=== PATIENT | female | born 1950 | race Caucasian/White ===

== ENCOUNTER → 2020-10-13 10:16 | Outpatient (BNV) | payer MEDICARE, SELFPAY | PROVIDERS: PCP Internal Medicine; Visit Provider Internal Medicine Medical Oncology | DX: D05.11 Intraductal carcinoma in situ of right breast (principal) | CPT/HCPCS: 99213; 99214 ==

== ENCOUNTER → 2020-10-20 14:05 | Outpatient (BNVA) | payer MEDICARE, SELFPAY | PROVIDERS: PCP Internal Medicine; Referring Provider Internal Medicine; Visit Provider Surgery | DX: D05.11 Intraductal carcinoma in situ of right breast (principal); Z80.9 Family history of malignant neoplasm, unspecified | CPT/HCPCS: 99212 ==

== ENCOUNTER 2021-05-12 07:34 | Outpatient (REF) | payer MEDICARE, SELFPAY ==
[2021-05-17 15:21] LABS: N-Telopeptide 28 (see note); NTXCreaRU 135 mg/dL (20-275)
== END 2021-05-12 07:35 | disposition home or self-care (01) ==
LOC: HO.10HDLNP 07:34
PROVIDERS: Visit Provider Internal Medicine Endocrinology, Diabetes & Metabolism
DX: M81.0 Age-related osteoporosis without current pathological fracture (principal)
CPT/HCPCS: 82523; 99212

== ENCOUNTER → 2021-05-13 10:55 | Outpatient (BNVA) | payer MEDICARE, SELFPAY | PROVIDERS: PCP Internal Medicine; Referring Provider Internal Medicine; Visit Provider Surgery | DX: D05.11 Intraductal carcinoma in situ of right breast (principal); M81.0 Age-related osteoporosis without current pathological fracture; I10 Essential (primary) hypertension; Z92.3 Personal history of irradiation | CPT/HCPCS: 99212 ==

== ENCOUNTER 2021-06-07 11:53 | Outpatient (REF) | payer MEDICARE, SELFPAY ==
--- NOTE | ~2021-06-07 | MM_ITS ---
EXAMINATION: MM SCREENING DIGITAL BREAST TOMOSYNTHESIS, BILATERAL CLINICAL INFORMATION: Screening. Asymptomatic. Right lumpectomy for DCIS 2015. COMPARISON: Mammography: 06/05/2020, 06/03/2019, 05/28/2018, 05/26/2017, 02/20/2016 TECHNIQUE: Digital breast tomosynthesis is performed in both the craniocaudal and mediolateral oblique views along with computer-aided detection (CAD). Synthesized 2D images are generated from the tomosynthesis. Additional right MLO view is provided. FINDINGS: The breasts are heterogeneously dense, which may obscure small masses (ACR BI-RADS breast composition Category c). There is stable post therapy changes on the right with mild reduced breast size and stable scarring central 11:00 position. Neither breast shows developing density or interval mass or architectural abnormality. There are no abnormal calcifications. The axilla are unremarkable. MM/MM tomosynthesis screening BI IMPRESSION: No mammographic evidence of malignancy. Post therapy changes right breast. ASSESSMENT: BI-RADS 2: Benign RECOMMENDATION: Routine annual mammography screening. This patient's information was entered into a reminder system with a target due date for their next mammogram.
== END 2021-06-07 11:54 | disposition home or self-care (01) ==
LOC: HO.MAMMO 11:53
PROVIDERS: PCP Internal Medicine; Visit Provider Surgery
DX: Z12.31 Encounter for screening mammogram for malignant neoplasm of breast (principal)
CPT/HCPCS: 77063; 77067

== ENCOUNTER 2022-05-03 10:14 | Outpatient (REF) | payer MEDICARE, SELFPAY ==
--- NOTE | ~2022-05-03 | MM_ITS ---
EXAMINATION: BONE DENSITOMETRY CLINICAL INDICATION: Osteoporosis. COMPARISON: Previous BD dated 04/28/2020 and baseline BD dated 02/24/2012. TECHNIQUE: Using a Chargeback DXA System (software version: 13.1) manufactured by [employer], dual-energy x-ray absorptiometry was performed of the lumbar spine and left hip. The images are of good technical quality. Summary results are attached. FINDINGS: AP SPINE L1-L4: Current: BMD 1.162 g/cm2, Z-score 2.1, T-score -0.1, normal, 0.6% decrease from previous, 2.2% increase from baseline (<5% change is not significant). Prior: BMD 1.169 g/cm2. Baseline: BMD 1.137 g/cm2. LEFT FEMUR, NECK: Current: BMD 0.653 g/cm2, Z-score -0.7, T-score -2.8, osteoporosis. Prior: BMD 0.713 g/cm2. Baseline: BMD 0.689 g/cm2. LEFT FEMUR, TOTAL: Current: BMD 0.739 g/cm2, Z-score -0.3, T-score -2.1, osteopenia, 7.2% decrease from previous, 5.1% decrease from baseline (<5% change is not significant). Prior: BMD 0.796 g/cm2. Baseline: BMD 0.779 g/cm2. IDENTIFIED RISK FACTORS: Osteoporosis, family history (parental hip fracture), menopause. HISTORY OF FRACTURE: Mandible. MEDICATIONS: Bisphosphonates, multivitamin. MM/XR DEXA axial skeleton IMPRESSION: 1. DIAGNOSIS: Osteoporosis based on the lowest T-score value of -2.8 in the femoral neck applying World Health Organization criteria. 2. 10 10-YEAR FRACTURE RISK PREDICTION, FRAX: According to the guidelines, FRAX calculation should only be performed on patients in the osteopenia bone density category. Therefore, FRAX was not performed on this patient. 3. Treatment Recommendations: NOF guidelines recommend consideration for treatment in postmenopausal women and men age 50 and older presenting with the following: -A hip or vertebral (clinical or morphometric) fracture. -T-score less than or equal to -2.5 at the femoral neck or spine after appropriate evaluation to exclude secondary causes. -Low bone mass at the hip or spine and a 10-year fracture probability by FRAX of greater than or equal to 3% for hip fracture or greater than or equal to 20% for major osteoporotic fracture based on the [place] adapted WHO algorithm. 4. Other Recommendations: All treatment decisions require clinical judgment and consideration of individual patient factors, including patient preferences, comorbidities, previous drug use, risk factors not captured in the FRAX model (e.g. frailty, falls, vitamin D deficiency, increased bone turnover, interval significant decline in bone density) and possible under or overestimation of fracture risk by FRAX. Additional medical evaluation for secondary cause of low bone mineral density may be appropriate. FUTURE SCAN RECOMMENDATION: People with diagnosed cases of osteoporosis or at high risk for fracture should have regular bone mineral density tests. For patients eligible for Medicare, routine testing is allowed once every 2 years. The testing frequency can be increased to one year for patients who have rapidly progressing disease, those who are receiving or discontinuing medical therapy to restore bone mass, or have additional risk factors.
== END 2022-05-03 10:15 | disposition home or self-care (01) ==
LOC: HO.MAMMO 10:14
PROVIDERS: PCP Internal Medicine; Visit Provider Internal Medicine Medical Oncology
DX: Z13.820 Encounter for screening for osteoporosis (principal); M81.0 Age-related osteoporosis without current pathological fracture; Z78.0 Asymptomatic menopausal state
CPT/HCPCS: 77080

== ENCOUNTER → 2022-05-31 09:57 | Outpatient (BNVA) | payer MEDICARE, SELFPAY | PROVIDERS: PCP Internal Medicine; Visit Provider Surgery | DX: Z86.000 Personal history of in-situ neoplasm of breast (principal); Z92.3 Personal history of irradiation | CPT/HCPCS: 99212 ==

== ENCOUNTER 2022-06-06 09:16 | Outpatient (REF) | payer MEDICARE, SELFPAY ==
--- NOTE | ~2022-06-06 | FL_ITS ---
EXAMINATION: FL BARIUM SWALLOW CLINICAL INFORMATION: Dysphagia COMPARISON: None TECHNIQUE: Barium swallow examination is performed using fluoroscopic evaluation in addition to multiple fluoroscopic spot views. The patient is imaged both upright and prone and using both thick and thin sulfate along with effervescent granules. Fluoroscopy time: 2.6 minutes DAP: 4.040 Gycm2 Images: 61 FINDINGS: Following oral administration of thick barium, there is normal propagation bolus from the oral cavity through the pharynx, esophagus into stomach without any evidence of obstruction, narrowing or stricture. On oral administration of barium-coated turkey, there is normal oral mastication with normal propagation of bolus from the oral cavity through the pharynx, esophagus into stomach. On placing patient prone lying, an oral administration of thin barium, there is good distention of entire esophagus without evidence of intraluminal filling defect or extrinsic compression. There is a small sliding hiatal hernia but no reflux seen. FL/FL barium swallow IMPRESSION: Small sliding hiatal hernia without gastroesophageal reflux.
== END 2022-06-06 09:17 | disposition home or self-care (01) ==
LOC: HO.XRAY 09:16
PROVIDERS: PCP Internal Medicine; Visit Provider Otolaryngology
DX: R13.10 Dysphagia, unspecified (principal)
CPT/HCPCS: 74220

== ENCOUNTER 2022-06-09 10:01 | Outpatient (REF) | payer MEDICARE, SELFPAY ==
--- NOTE | ~2022-06-09 | MM_ITS ---
EXAMINATION: MM SCREENING DIGITAL BREAST TOMOSYNTHESIS, BILATERAL CLINICAL INFORMATION: Screening. Asymptomatic. Right lumpectomy for DCIS, 2016. COMPARISON: Mammography: 06/07/2021, 06/05/2020, 06/03/2019 TECHNIQUE: Digital breast tomosynthesis is performed in both the craniocaudal and mediolateral oblique views along with computer-aided detection (CAD). Synthesized 2D images are generated from the tomosynthesis. FINDINGS: The breasts are heterogeneously dense, which may obscure small masses (ACR BI-RADS breast composition Category c). Parenchymal pattern is similar to prior studies. The right breast has post therapy changes with mild reduced breast size and stable are. Neither breast shows interval mass or architectural abnormality, developing density, or abnormal calcifications. The axilla are unremarkable. No significant changes from prior studies. MM/MM tomosynthesis screening BI IMPRESSION: -No mammographic evidence of malignancy. -Post therapy changes right breast. ASSESSMENT: BI-RADS 2: Benign RECOMMENDATION: Routine annual mammography screening. This patient's information was entered into a reminder system with a target due date for their next mammogram.
== END 2022-06-09 10:02 | disposition home or self-care (01) ==
LOC: HO.MAMMO 10:01
PROVIDERS: PCP Internal Medicine; Visit Provider Internal Medicine
DX: Z12.31 Encounter for screening mammogram for malignant neoplasm of breast (principal)
CPT/HCPCS: 77063; 77067

== ENCOUNTER → 2022-11-29 12:51 | Outpatient (BNVA) | payer MEDICARE, SELFPAY | PROVIDERS: PCP Internal Medicine; Visit Provider Orthopaedic Surgery | DX: M65.342 Trigger finger, left ring finger (principal) | CPT/HCPCS: 20550; 99202; J1100 ==

== ENCOUNTER 2023-01-17 07:15 | Outpatient (REF) | payer MEDICARE, SELFPAY ==
[2023-01-17 12:17] LABS: Cholesterol 225 mg/dL; HDL Cholesterol 69 mg/dL; LDL Cholesterol Calculated 145 mg/dl; Triglycerides 56 mg/dL
[2023-01-17 12:44] LABS: Vitamin D 25-OH Total 35.8 ng/mL (>30)
== END 2023-01-17 07:16 | disposition home or self-care (01) ==
LOC: HO.WFDLDS 07:15
PROVIDERS: Visit Provider Internal Medicine
DX: K44.9 Diaphragmatic hernia without obstruction or gangrene (principal); M81.0 Age-related osteoporosis without current pathological fracture; I10 Essential (primary) hypertension
CPT/HCPCS: 36415; 80061; 82306

== ENCOUNTER 2023-01-26 08:20 | Outpatient (REF) | payer MEDICARE, SELFPAY | END 2023-01-26 08:21 | disposition home or self-care (01) | LOC: HO.LNP 08:20 | PROVIDERS: PCP Internal Medicine; Referring Provider Internal Medicine Medical Oncology; Visit Provider Surgery | DX: L98.8 Other specified disorders of the skin and subcutaneous tissue (principal); N63.15 Unspecified lump in the right breast, overlapping quadrants; Z79.899 Other long term (current) drug therapy; Z85.3 Personal history of malignant neoplasm of breast | CPT/HCPCS: 11104; 11400; 88305; 99212 ==

== ENCOUNTER → 2023-02-02 10:47 | Outpatient (BNVA) | payer MEDICARE, SELFPAY | PROVIDERS: PCP Internal Medicine; Visit Provider Surgery ==

== ENCOUNTER → 2023-03-14 11:23 | Outpatient (BNVA) | payer MEDICARE, SELFPAY | PROVIDERS: PCP Internal Medicine; Visit Provider Orthopaedic Surgery | DX: M65.342 Trigger finger, left ring finger (principal) | CPT/HCPCS: 20550; 99212; J1100 ==

== ENCOUNTER 2023-06-01 09:47 | Outpatient (AMB) | payer MEDICARE, SELFPAY ==
--- NOTE | 2023-06-01 09:48 | MHC.OFFVIS ---
Intake Vital Signs 06/01/23 09:56 Height 5 ft 2 in Weight 109 lb BMI 19.9 BP 140/88 H Blood Pressure Location Lt brachial Position Sitting Intake Visit Reasons: yearly month follow up breast exam Intake Note: Patient is seen in office for yearly breast exam. Patient c/o: denies any concerns or changes since last visit, has upcoming mammogram scheduled for 06/15/24 Lower In Supervisor Required: No Accompanied by: Self / Same As Patient Allergies sulfamethoxazole [From BACTRIM] Allergy (Severe, Verified 06/01/23 09:55) blisters/photosensitivity trimethoprim [From BACTRIM] Allergy (Severe, Verified 06/01/23 09:55) blisters/photosensitivity codeine [CODEINE] Allergy (Intermediate, Verified 06/01/23 09:55) Nausea and Vomiting indomethacin [From Indocin] Allergy (Verified 06/01/23 09:55) Hives Medication List - Last Reconciled 06/01/23 by Ryan Brooks MD calcium carbonate-vitamin D3 500 mg-10 mcg (400 unit) (Calcium 500 + D) tabs PO DAILY MDD 500 famotidine 40 mg PO BEDTIME lactobacillus combination no.4 (Probiotic) 3,000 mmu cells PO DAILY metoprolol succinate ER 50 mg PO DAILY HPI HPI Comments History of Present Illness Details 73-year-old female patient returning for a follow-up breast examination after right breast surgery.? She was diagnosed with ductal carcinoma in situ and underwent lumpectomy with needle localization by Dr. De La O on 03/17/2016.? She subsequently underwent radiation therapy which she completed on 05/19/2016.? She was also placed on tamoxifen which she took for 5 years and has now completed.? She feels well and denies any ongoing breast symptoms.? She did report her sister underwent a Whipple for pancreatic carcinoma.? This was felt to be an early stage and she underwent a single course of chemotherapy but did not tolerate this. She declined any further chemotherapy and is being watched now.? She had a very difficult postoperative course and was hospitalized approximately 8 weeks.? Her sister was tested for genetic mutations and was negative.? Patient wishes to hold off on any genetic testing at this time.? Patient's last mammogram dated 06/09/2022 revealed no mammographic evidence of malignancy (BI-RADS 2). She was evaluated by Dr. Quiroz and identified a small skin lesion in the right breast at approximately the 3 o'clock position. This is a small red lesion measuring approximately 3 mm in diameter. This was biopsied on 01/26/2023 pathology revealed a seborrheic keratosis. She is scheduled for a mammogram on 06/15/2023. [facility] Medical History Breast cancer Family history of cancer Hiatal hernia Hypertension Osteoporosis Osteoporosis Surgical History History of appendectomy History of lumpectomy Family History Sister Pancreatic cancer Maternal Aunt Breast cancer Pancreatic cancer Colon cancer Paternal Aunt Breast cancer Social History Household Members: Spouse Housing: House Are you a primary home care music therapist to a significant other at home: No Do you presently have visiting nurse or other home services: No Alcohol intake: current Alcohol intake frequency: holidays/special occasions only Patient Tobacco Use Status: Never used Tobacco e-Cigarette/Vaping Use: Never Used service: No 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al status: retired 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 Cognitive needs: No Hearing needs: No Vision needs: Yes Review of Systems Const All systems reviewed & are unremarkable except as noted in HPI and below Card Denies chest pain, Denies rapid heart rate, Denies irregular heart rhythm and Denies dyspnea Resp Denies cough, Denies hemoptysis and Denies dyspnea GI Denies abdominal pain, Denies bloating, Denies constipation and Denies GI cramping Denies nipple discharge Skin/Breast Denies breast swelling, Denies breast skin changes, Denies breast pain, Denies breast mass, Denies change in breast shape and Denies nipple discharge Kyle/Lymph Denies lymphadenopathy Physical Exam Vital Signs: Last Vital Signs BP 140/88 H 06/01/23 09:56 BMI result Body Mass Index 19.9 Const General: no acute distress and well developed Nutritional Appearance: well nourished Orientation/consciousness: patient oriented x3 Limitations: no limitations Chest Other: Well-healed incision in the upper outer quadrant right breast with no palpable mass. No underlying masses appreciated. No new skin change, nipple discharge or nipple retraction. No enlarged lymph nodes. Left breast: No skin change, nipple discharge, palpable mass or enlarged lymph nodes. Resp Effort & Inspection: normal respiratory effort Skin General skin exam: no rashes or lesions noted Neuro General: patient oriented x3 Extrem General: Yes no clubbing, cyanosis or edema Assessment & Plan Assessment & Plan (1) Ductal carcinoma in situ (DCIS) of right breast: Code(s): D05.11 - Intraductal carcinoma in situ of right breast Plan 73-year-old female patient with a prior history of right ductal carcinoma in situ, radiation therapy status post right breast lumpectomy returning now for an annual breast examination. Her most recent mammogram of 06/09/2022 revealed no mammographic evidence of malignancy (BI-RADS 2). Examination today revealed no suspicious findings in either breast. No new skin lesions or palpable masses are appreciated. She is scheduled for an annual mammogram on 06/15/2023 at the [facility]. She will follow-up in 1 year for routine breast examination. Coding Level of Care Code Est Pt Level 3 (96803) Diagnoses Ductal carcinoma in situ (DCIS) of right breast D05.11
[2023-06-01 09:56] VITALS: BP 140/88; BMI 19.9
== END 2023-06-01 10:22 | disposition home or self-care (01) ==
PROVIDERS: PCP Internal Medicine; Visit Provider Surgery
DX: Z85.3 Personal history of malignant neoplasm of breast (principal)
CPT/HCPCS: 99213

== ENCOUNTER → 2023-06-01 09:47 | Outpatient (BNVA) | payer MEDICARE, SELFPAY | PROVIDERS: PCP Internal Medicine; Visit Provider Surgery | DX: D05.11 Intraductal carcinoma in situ of right breast (principal) | CPT/HCPCS: 99212 ==

== ENCOUNTER 2023-06-15 09:49 | Outpatient (REF) | payer MEDICARE, SELFPAY ==
--- NOTE | ~2023-06-15 | MM_ITS ---
EXAMINATION: MM SCREENING DIGITAL BREAST TOMOSYNTHESIS, BILATERAL CLINICAL INFORMATION: Screening. Asymptomatic. Right lumpectomy for DCIS performed in 2016. COMPARISON: Mammography: This study is compared with prior exams dating back to 2019. TECHNIQUE: Digital breast tomosynthesis is performed in both the craniocaudal and mediolateral oblique views along with computer-aided detection (CAD). Synthesized 2D images are generated from the tomosynthesis. FINDINGS: The breasts are heterogeneously dense, which may obscure small masses (ACR BI-RADS breast composition Category c). There are no significant masses, abnormal calcifications, or other abnormalities. There are architectural changes in the upper quadrant of the right breast from prior breast cancer surgery. MM/MM tomosynthesis screening BI IMPRESSION: No mammographic evidence of malignancy. ASSESSMENT: BI-RADS BI-RADS 2 - Benign Findings RECOMMENDATION: Routine annual mammography screening. 1 year F/U This examination should not preclude the clinical evaluation of a suspicious palpable abnormality. This patient's information was entered into a reminder system with a target due date for their next mammogram.
== END 2023-06-15 09:50 | disposition home or self-care (01) ==
LOC: HO.MAMMO 09:49
PROVIDERS: PCP Internal Medicine; Visit Provider Internal Medicine
DX: Z12.31 Encounter for screening mammogram for malignant neoplasm of breast (principal)
CPT/HCPCS: 77063; 77067

== ENCOUNTER → 2023-06-15 10:00 | Outpatient (BNV) | payer MEDICARE, SELFPAY | PROVIDERS: PCP Internal Medicine; Visit Provider Radiology Diagnostic Radiology | DX: Z12.31 Encounter for screening mammogram for malignant neoplasm of breast (principal) | CPT/HCPCS: 77063; 77067 ==

== ENCOUNTER 2023-07-11 08:58 | Outpatient (AMB) | payer MEDICARE, SELFPAY ==
[2023-07-11 10:03] VITALS: BP 150/80; PULSE 72; TEMP 36.8; O2SAT 98; BMI 20.3
--- NOTE | 2023-07-11 10:03 | MHC.OFFWIV ---
Intake Vital Signs 07/11/23 10:03 Height 5 ft 2 in Weight 111 lb 2 oz BMI 20.3 BP 150/80 H Blood Pressure Location Rt brachial Position Sitting Pulse 72 Pulse Source Pulse Oximeter Temp 98.2 F Temp Source Temporal Artery Scan Pulse Oximetry (%) 98 Oxygen Delivery Method Room Air Intake Visit Reasons: EST/right side thoat pain going into ear Intake Note: pt is here for c/o right side throat pain going into ear Patient Tobacco Use Status: Never used Tobacco Allergies sulfamethoxazole [From BACTRIM] Allergy (Severe, Verified 07/11/23 10:35) blisters/photosensitivity trimethoprim [From BACTRIM] Allergy (Severe, Verified 07/11/23 10:35) blisters/photosensitivity codeine [CODEINE] Allergy (Intermediate, Verified 07/11/23 10:35) Nausea and Vomiting indomethacin [From Indocin] Allergy (Verified 07/11/23 10:35) Hives Medication List - Last Reconciled 07/11/23 by Beny Bender MD calcium carbonate-vitamin D3 500 mg-10 mcg (400 unit) (Calcium 500 + D) tabs PO DAILY MDD 500 famotidine 40 mg PO BEDTIME lactobacillus combination no.4 (Probiotic) 3,000 mmu cells PO DAILY metoprolol succinate ER 50 mg PO DAILY Do you need a note to return to daycare/school/sports/work: Yes HPI EST/right side thoat pain going into ear HPI Details 73-year-old female presents to the office for a sick visit. Patient is complaining of pain on the back of her throat. Symptoms present for the past week. Pain is worse on swallowing. [facility] Medical History Breast cancer Family history of cancer Hiatal hernia Hypertension Osteoporosis Osteoporosis Surgical History History of appendectomy History of lumpectomy Family History Sister Pancreatic cancer Maternal Aunt Breast cancer Pancreatic cancer Colon cancer Paternal Aunt Breast cancer Social History Household Members: Spouse Housing: House Are you a primary career counselor to a significant other at home: No Do you presently have visiting nurse or other home services: No Alcohol intake: current Alcohol intake frequency: holidays/special occasions only Patient Tobacco Use Status: Never used Tobacco e-Cigarette/Vaping Use: Never Used service: No 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al status: retired 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 Head: Yes normal to inspection Eyes General: appearance normal, both eyes and all related structures Neck Neck: Yes normal visual inspection Chest Chest palpation & inspection: normal palpation of entire chest wall Resp Effort & Inspection: normal respiratory effort Neuro General: patient oriented x3 Assessment & Plan Assessment & Plan (1) Tonsillith: Code(s): J35.8 - Other chronic diseases of tonsils and adenoids Plan: Azithromycin added to the regimen. Saltwater gargling. If symptoms do not better to follow-up here. Coding Level of Care Code Est Pt Level 3 (61654) Diagnoses Tonsillith J35.8
== END 2023-07-11 10:51 | disposition home or self-care (01) ==
PROVIDERS: PCP Internal Medicine; Visit Provider Internal Medicine
DX: J35.8 Other chronic diseases of tonsils and adenoids (principal); J02.9 Acute pharyngitis, unspecified
CPT/HCPCS: 87880; 99213

== ENCOUNTER 2023-12-27 10:52 | Outpatient (AMB) | payer MEDICARE, SELFPAY ==
--- NOTE | 2023-12-27 11:18 | A.OFFVIS_ITS ---
Intake Vital Signs 12/27/23 11:22 Height 5 ft 2 in Weight 112 lb BMI 20.5 BP 178/90 H Blood Pressure Location Lt brachial Position Sitting Pulse 80 Pulse Source Pulse Oximeter Pulse Oximetry (%) 100 Oxygen Delivery Method Room Air Intake Visit Reasons: SWV G0439 Intake Note: Pt is here today for her SWV: Last mammogram 06/15/23, bone density scan 05/03/22, colonoscopy 07/27/14 Allergies sulfamethoxazole [From BACTRIM] Allergy (Severe, Verified 12/27/23 11:29) blisters/photosensitivity trimethoprim [From BACTRIM] Allergy (Severe, Verified 12/27/23 11:29) blisters/photosensitivity codeine [CODEINE] Allergy (Intermediate, Verified 12/27/23 11:29) Nausea and Vomiting indomethacin [From Indocin] Allergy (Verified 12/27/23 11:29) Hives HPI SWV G0439 HPI Details SWV ? 73 year old lady with hypertension, osteoporosis in her left femoral neck, and ductal carcinoma in Situ of right breast diagnosed in 2022, presents today for her subsequent Annual Wellness Visit. She is up-to-date with her mammogram done 06/15/23, had a bone density scan 05/03/22, and her screening colonoscopy was done 07/27/14 by chrissy Mcclain due again this year.. She is up-to-date with her screening for lipids, had [id number] and had a normal fasting glucose screening at the same time. She is up-to-date with her flu shot, COVID vaccine and booster, Tdap, pneumonia vaccination and Shingrix vaccine but received only 1 dose. ? Medical / Social History Reviewed? Past Medical History ?Yes . ? [place] of Care / Care Team list updated ?Yes . ? Surgical/Hospitalization History ?Yes . ? Current Medications (including OTC and supplements) ?Yes . ? Family History ?Yes . ? Tobacco Control form ?Yes . ? AUDIT-C (Alcohol use) form ?Yes . ? Illicit drug use in Social History ?Yes . ? Current diagnosis of depression? ?No ? Appropriate PHQ2/PHQ9 completed ?Yes . ? 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 Fall Risk ? Fall History? Have you had any falls with injury in the past year? ?No . ? Have you had two or more falls in the past year? ?No . ? Fall Risk Assessment: ?No falls in the past year . ? HRA filled out by the patient, reviewed by Provider and scanned. ? SWV ? Balance? Romberg ?Yes . ? Tandem walk ?Yes . ? Walk and Turn ?Yes . ? Rise from sit to stand ?Yes . ?Vision? Corrective lens ?Yes ? Vision screen ? Up-to-date, sees Dr. Benton ?Hearing? Whisper test ?pass . ?Written Plan?Completed. See Patient Documents.? PENDING SALE TO [facility] Medical History (Updated 03/14/24 @ 15:36 by Glenys Looney MD) Hiatal hernia Osteoporosis Family history of cancer Hypertension Breast cancer Surgical History History of appendectomy History of lumpectomy Family History Sister Pancreatic cancer Maternal Aunt Breast cancer Pancreatic cancer Colon cancer Paternal Aunt Breast cancer Social History Household Members: Spouse Housing: House Are you a primary career development manager to a significant other at home: No Do you presently have visiting nurse or other home services: No Alcohol intake: current Alcohol intake frequency: holidays/special occasions only Patient Tobacco Use Status: Never used Tobacco e-Cigarette/Vaping Use: Never Used service: No 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al status: retired 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 Cognitive needs: No Hearing needs: No Vision needs: Yes Questionnaire Medicare Wellness Checkup [age] What gender do you identify with?: female During the past 4 weeks, how much have you been bothered by emotional problems such as feeling anxious, depressed, irritable, sad or downhearted, and blue?: slightly During the past 4 weeks, has your physical & emotional health limited your social activities with family, friends, neighbors, or groups?: not at all During the past 4 weeks, how much bodily pain have you generally had?: very mild pain During the past 4 weeks, was someone available to help you if you needed & wanted help?: yes, as much as I wanted During the past 4 weeks, what was the hardest physical activity you could do for at least 2 minutes?: heavy Can you get to places out of walking distance without help? (For eg., can you travel alone on buses, taxis or drive your car?): Yes Can you go shopping for groceries or clothes without someone's help?: Yes Can you prepare your own meals?: Yes Can you do your housework without help?: Yes Because of any health problems, do you need the help of another person with your personal care needs such as eating, bathing, dressing or getting around the house?: No Can you handle your own money without help?: Yes During the past 4 weeks, how would you rate your health in general?: excellent During the past 4 weeks how have things been going for you?: pretty well Are you having difficulties driving your car?: no Do you always fasten your seat belt when you are in a car?: yes, usually During past 4 weeks, have you been bothered by the following: never: Falling or dizzy when standing up, Sexual problems?, Trouble eating well?, Teeth or denture problems?, Problems using the telephone? and Tiredness or fatigue? Have you fallen 2 or more times in the past year?: No Are you afraid of falling?: No Are you a smoker?: no During the past 4 weeks, how many drinks of wine, beer, or other alcoholic beverages did you have?: 1 drink or less per week Do you exercise for about 20 minutes 3 or more times a week?: yes, all the time Have you been given information to help with the following?: yes: Keeping track of your medications? and no: Hazards in your house that might hurt you? How often do you have trouble taking medicines the way you have been told to take them?: I always take medicine as prescribed How confident are you that you can control & manage most of your health problems?: very confident What is your race?: White Mini Mental State Exam (MMSE) Orientation What is the (year) (season) (date) (day) (month)?: year (2023), season (winter), date (12/27/2023), day (Monday) and month (November) Where are we (state) (county) (town or city) (hospital) (floor)?: state ([place]), community health ([place]), town or city ([place]) and hospital/clinic ( [facility]) Score Score: 9 Activity of Daily Living Bathing - sponge bath, tub bath or shower: receives no assistance (gets in/out by self, if usual bathing means Dressing - getting clothes from closets & drawers, including inner/outer garme nts & fasteners.: gets clothes & gets completely dressed without help Toileting - going to the 'toilet room' for urine/bowel elimination & cleaning self/arranging clothes: goes to toilet room, cleans self, arranges clothes without help Transfer: moves in & out of bed and chair without help (may use support object) Continence: has occasional 'accidents' Feeding: feeds self without help Total Score: 0 Information obtained from: patient Using telephone: independent Traveling: independent Shopping: independent Preparing meals: independent Housework: independent Taking medicine: independent Managing money: independent PHQ-9 Over the last 2 weeks, how often have you been bothered by any of the following problems? 1. Little interest or pleasure in doing things: not at all 2. Feeling down, depressed, or hopeless: not at all 3. Trouble falling or staying asleep, or sleeping too much: not at all 4. Feeling tired or having little energy: not at all 5. Poor appetite or overeating: not at all 6. Feeling bad about yourself - or that you are a failure or have let yourself or your family down: not at all 7. Trouble concentrating on things, such as reading the newspaper or watching television: not at all 8. Moving or speaking so slowly that other people could have noticed. Or the opposite - being so fidgety or restless that you have been moving around a lot more than usual: not at all 9. Thoughts that you would be better off or of hurting yourself in some way: not at all Total score: 0 Depression Screening Interpretation: Negative Depression Screening Done: Yes 97666 - PHQ-9 Billing: Yes Source: Developed by Drs. Yuri Ruiz, Cindi Mitchell, Camacho North and colleagues, with an educational jass from [employer]. Thrive Questionnaire Date Thrive assessed: 12/27/23 I am a: Patient What is your living situation today?: I have a steady place to live Within the past 12 months, did the food you bought not last and you didn't have the money to get more?: Never true Within the past 12 months, did you worry whether your food would run out before you got money to buy more?: Never true Do you have trouble paying for medicines?: No Do you have trouble getting transportation to medical appointments?: No Do you have trouble paying your heating and electricity bill?: No Do you have trouble taking care of your child, family member or friend?: No Do you have trouble with day-to-day activities such as bathing, preparing meals, shopping, managing finances, etc.?: No Are you currently unemployed and looking for a job?: No Are you interested in more education?: No THRIVE Score: 0 JADE-7 AMB Questionnaire JADE-7 Date JADE - 7 assessed: 12/27/23 Feeling nervous, anxious, or on edge: 0 = Not at all Not being able to stop or control worryin = Not at all Worrying too much about different things: 0 = Not at all Trouble relaxin = Not at all Being so restless that it is hard to sit still: 0 = Not at all Becoming easily annoyed or irritable: 0 = Not at all Feeling afraid as if something awful might happen: 0 = Not at all Total JADE-7 score (0-4 normal; 5-9 mild; 10-14 moderate; 15-21 severe): 0 Source: Developed by Drs. Yuri Ruiz, Cindi Mitchell, Camacho [place] and colleagues, with an educational jass from [employer]. JADE-7 Assessment Billing JADE-7 Assessment Tool: JADE-7 Assessment 22877 Physical Exam Vital Signs: Last Vital Signs Pulse 80 12/27/23 11:22 BP 178/90 H 12/27/23 11:22 Pulse Ox 100 12/27/23 11:22 Oxygen Delivery Method Room Air 12/27/23 11:22 BMI result Body Mass Index 20.5 Assessment & Plan Assessment & Plan (1) Ductal carcinoma in situ (DCIS) of right breast: Code(s): D05.11 - Intraductal carcinoma in situ of right breast Plan: Followed by Oncology, up-to-date with her screening mammogram (2) Hypertension: Code(s): I10 - Essential (primary) hypertension Qualifiers: Hypertension type: primary hypertension Qualified Code(s): I10 - Essential (primary) hypertension Plan: Increase metoprolol ER dose to 100MG ONCE A day. See nurse navigator in 2 weeks to check blood pressure after dose adjustment and see me back in 3 months for follow-up (3) Osteoporosis: Code(s): M81.0 - Age-related osteoporosis without current pathological fracture Qualifiers: Osteoporosis type: age-related Presence of current pathological fracture: without current pathological fracture Qualified Code(s): M81.0 - Age- related osteoporosis without current pathological fracture Plan: Continue with calcium supplements and vitamin-D supplements, encouraged to do regular weight-bearing exercise. Repeat another bone density scan this year (4) Encounter for subsequent annual wellness visit (AWV) in Medicare patient: Code(s): Z00.00 - Encounter for general adult medical examination without abnormal findings Plan: Medical wellness checklist discussed with patient, reviewed and updated. Copy given to patient Orders: Orders XR DEXA axial skeleton 12/27/23 M81.0 - Age-related osteoporosis without current pathological fracture, Z92.29 - Personal history of other drug therapy Medications: New metoprolol succinate ER 100 mg PO DAILY 90 tabs 0RF I10 - Essential (primary) hypertension Refilled famotidine 40 mg PO BEDTIME 90 tabs 3RF Discontinued metoprolol succinate ER Discontinued Reason: Doctor's Order 50 mg PO DAILY 90 tabs 4RF I10 - Essential (primary) hypertension Quality Reporting (2019) Depression/Bipolar (159/160/161/177) PHQ-9: Total score: 0 Coding Level of Care Code Medicare Subsequent (G0439) Diagnoses Ductal carcinoma in situ (DCIS) of right breast D05.11 Primary hypertension I10 Hypertension type: primary hypertension Age-related osteoporosis without current pathological fracture M81.0 Osteoporosis type: age-related Presence of current pathological fracture: without current pathological fracture Encounter for subsequent annual wellness visit (AWV) in Medicare patient Z00.00 CPT Codes Advance Care Planning - Advance Care Planning discussion: On file, no changes ([id number]) Advance Care Planning - Time spent: 1-15 minutes, on File ([id number]) Additional Codes JADE-7 Assessment Billing - JADE-7 Assessment Tool: JADE-7 Assessment 33494 ([id number]) Advance Care Planning Advance Care Planning discussion: On file, no changes Date of discussion: 12/27/23 Who was present: Patient Forms completed: Health Care Proxy Time spent: 1-15 minutes, on File Actual minutes spent: 15
[2023-12-27 11:22] VITALS: BP 178/90; PULSE 80; O2SAT 100; BMI 20.5
== END 2023-12-27 12:20 | disposition home or self-care (01) ==
PROVIDERS: Visit Provider Internal Medicine
DX: Z00.00 Encounter for general adult medical examination without abnormal findings (principal); D05.11 Intraductal carcinoma in situ of right breast; I10 Essential (primary) hypertension; M81.0 Age-related osteoporosis without current pathological fracture
CPT/HCPCS: 1123F; G0439

== ENCOUNTER 2024-06-04 09:40 | Outpatient (AMB) | payer MEDICARE, SELFPAY ==
--- NOTE | 2024-06-04 09:41 | MHC.OFFVIS ---
Vital Signs 06/04/24 09:50 Height 5 ft 2 in Weight 111 lb 2 oz BMI 20.3 BP 140/90 H Blood Pressure Location Lt brachial Position Sitting Intake Visit Reasons: annual breast check Intake Note: Patient is seen in office for yearly breast exam. Pt c/o: no concerns or changes mm sched: 06/18/24 Fishing Worker Required: No Cruller Maker Machine: Cruller Maker Machine Present Accompanied by: Self / Same As Patient Allergies sulfamethoxazole [From BACTRIM] Allergy (Severe, Verified 06/04/24 09:43) blisters/photosensitivity trimethoprim [From BACTRIM] Allergy (Severe, Verified 06/04/24 09:43) blisters/photosensitivity codeine [CODEINE] Allergy (Intermediate, Verified 06/04/24 09:43) Nausea and Vomiting indomethacin [From Indocin] Allergy (Verified 06/04/24 09:43) Hives Medication List - Last Reconciled 06/04/24 by Ryan Brooks MD calcium carbonate-vitamin D3 500 mg-10 mcg (400 unit) (Calcium 500 + D) 500 tabs PO DAILY MDD 500 famotidine 40 mg PO BEDTIME lactobacillus combination no.4 (Probiotic) 3,000 mmu cells PO DAILY metoprolol succinate ER 100 mg PO DAILY HPI Comments Details: 74-year-old female patient returning for a follow-up breast examination after right breast surgery.? She was diagnosed with ductal carcinoma in situ and underwent lumpectomy with needle localization by Dr. De La O on 03/17/2016.? She subsequently underwent radiation therapy which she completed on 05/19/2016.? She was also placed on tamoxifen which she took for 5 years and has now completed.? She feels well and denies any ongoing breast symptoms.? She did report her sister underwent a Whipple for pancreatic carcinoma.? This was felt to be an early stage and she underwent a single course of chemotherapy but did not tolerate this. She declined any further chemotherapy and is being watched now.? She had a very difficult postoperative course and was hospitalized approximately 8 weeks.? Her sister was tested for genetic mutations and was negative.? Patient wishes to hold off on any genetic testing at this time.? Patient's last mammogram dated 06/15/2023 revealed no mammographic evidence of malignancy (BI-RADS 2). She was evaluated by Dr. Quiroz and identified a small skin lesion in the right breast at approximately the 3 o'clock position. This is a small red lesion measuring approximately 3 mm in diameter. This was biopsied on 01/26/2023 pathology revealed a seborrheic keratosis. She is scheduled for a mammogram on 06/18/2024. [facility] Medical History Hiatal hernia Osteoporosis Family history of cancer Hypertension Breast cancer Surgical History History of appendectomy History of lumpectomy Family History Sister Pancreatic cancer Maternal Aunt Breast cancer Pancreatic cancer Colon cancer Paternal Aunt Breast cancer Social History Household Members: Spouse Housing: House Are you a primary resident care assistant to a significant other at home: No Do you presently have visiting nurse or other home services: No Alcohol intake: current Alcohol intake frequency: holidays/special occasions only Patient Tobacco Use Status: Never used Tobacco e-Cigarette/Vaping Use: Never Used service: No 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al status: retired 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 Cognitive needs: No Hearing needs: No Vision needs: Yes Review of Systems Const All systems reviewed & are unremarkable except as noted in HPI and below Card Denies chest pain, Denies rapid heart rate, Denies irregular heart rhythm and Denies dyspnea Resp Denies cough, Denies hemoptysis and Denies dyspnea GI Denies abdominal pain, Denies bloating, Denies constipation and Denies GI cramping Denies nipple discharge Skin/Breast Denies breast swelling, Denies breast skin changes, Denies breast pain, Denies breast mass, Denies change in breast shape and Denies nipple discharge Kyle/Lymph Denies lymphadenopathy Physical Exam Vital Signs: Last Vital Signs BP 140/90 H 06/04/24 09:50 BMI result Body Mass Index 20.3 Const General: no acute distress and well developed Nutritional Appearance: well nourished Orientation/consciousness: patient oriented x3 Chest Other: Well-healed incision in the upper outer quadrant right breast with no palpable mass. No underlying masses appreciated. No new skin change, nipple discharge or nipple retraction. No enlarged lymph nodes. Left breast: No skin change, nipple discharge, palpable mass or enlarged lymph nodes. Resp Effort & Inspection: normal respiratory effort Skin General skin exam: no rashes or lesions noted Neuro Other: Mobility Assessment: 1. 3 meter assessment time (seconds) 5 2. Gait observations: Normal balance and gait General: patient oriented x3 Extrem General: Yes no clubbing, cyanosis or edema Assessment & Plan Assessment & Plan (1) Ductal carcinoma in situ (DCIS) of right breast: Code(s): D05.11 - Intraductal carcinoma in situ of right breast Category: Medical Plan 74-year-old female patient with a prior history of right ductal carcinoma in situ, radiation therapy status post right breast lumpectomy returning now for an annual breast examination. Her most recent mammogram of 06/15/2023 revealed no mammographic evidence of malignancy (BI-RADS 2). Examination today revealed no suspicious findings in either breast. No new skin lesions or palpable masses are appreciated. She is scheduled for an annual mammogram on 06/18/2024 at the [facility]. She will follow-up in 1 year for routine breast examination. Coding Level of Care Code Est Pt Level 3 (75328) Diagnoses Ductal carcinoma in situ (DCIS) of right breast D05.11
[2024-06-04 09:50] VITALS: BP 140/90; BMI 20.3
== END 2024-06-04 10:15 | disposition home or self-care (01) ==
PROVIDERS: PCP Internal Medicine; Visit Provider Surgery
DX: D05.11 Intraductal carcinoma in situ of right breast (principal)
CPT/HCPCS: 99213

== ENCOUNTER → 2024-06-04 09:40 | Outpatient (BNVA) | payer MEDICARE, SELFPAY | PROVIDERS: PCP Internal Medicine; Visit Provider Surgery | DX: D05.11 Intraductal carcinoma in situ of right breast (principal); Z92.3 Personal history of irradiation | CPT/HCPCS: 99212 ==

== ENCOUNTER 2024-06-13 13:32 | Outpatient (REF) | payer MEDICARE, SELFPAY ==
--- NOTE | ~2024-06-13 | US_ITS ---
EXAMINATION: US LEFT SUPRACLAVICULAR SOFT TISSUES CLINICAL INFORMATION: Focal swelling and palpable lump in the left supraclavicular region. COMPARISON: None available. TECHNIQUE: Linear transducer coleman-scale and color Doppler examination with attention to the region of the left supraclavicular region. FINDINGS: The cutaneous, subcutaneous mass, muscular and fascial planes are unremarkable. No mass or fluid collection is seen. No lymphadenopathy. No foreign body is seen. US/US soft tiss head and/or neck IMPRESSION: Unremarkable examination. Electronically signed by: Ryan Seay MD 06/23/2024 04:47 PM EDT
== END 2024-06-13 13:33 | disposition home or self-care (01) ==
LOC: HO.US 13:32
PROVIDERS: PCP Internal Medicine; Visit Provider Surgery
DX: R22.1 Localized swelling, mass and lump, neck (principal)
CPT/HCPCS: 76536

== ENCOUNTER 2024-06-18 09:56 | Outpatient (REF) | payer MEDICARE, SELFPAY ==
--- NOTE | ~2024-06-18 | MM_ITS ---
EXAMINATION: MM SCREENING DIGITAL BREAST TOMOSYNTHESIS, BILATERAL CLINICAL INFORMATION: Screening. Asymptomatic. Right lumpectomy upper outer quadrant posterior one third for DCIS in 2016. COMPARISON: Mammography: 06/15/2023, 06/09/2022, 06/07/2021, 06/05/2020, and dating back to 2017. TECHNIQUE: Digital breast tomosynthesis is performed in both the craniocaudal and mediolateral oblique views along with computer-aided detection (CAD). Synthesized 2D images are generated from the tomosynthesis. As per technologist note, patient sensitive to compression. FINDINGS: The breasts are heterogeneously dense, which may obscure small masses (ACR BI-RADS breast composition Category c). Postlumpectomy changes are present in the upper outer right breast posterior one third, without significant change. There are a few scattered benign type calcifications in both breasts. No suspicious grouped calcifications. Early vascular calcifications are also noted. No dominant masses, or new areas of architectural distortion in either breast. No suspicious skin or axillary abnormalities. The overall parenchymal pattern is unchanged from prior recent exams. MM/MM tomosynthesis screening BI IMPRESSION: No mammographic evidence of malignancy. Stable benign findings. ASSESSMENT: BI-RADS BI-RADS 2 - Benign Findings RECOMMENDATION: Routine annual mammography screening. 1 year F/U This examination should not preclude the clinical evaluation of a suspicious palpable abnormality. This patient's information was entered into a reminder system with a target due date for their next mammogram. Electronically signed by: Suhas Nieves MD 06/27/2024 01:35 PM EDT
--- NOTE | ~2024-06-18 | MM_ITS ---
EXAMINATION: BONE DENSITOMETRY CLINICAL INDICATION: Age-related osteoporosis without current pathological fracture. COMPARISON: Previous BD dated 05/03/2022 and baseline BD dated 02/24/2012. TECHNIQUE: Using a [employer] DXA System (software version: 13.1) manufactured by [employer], dual-energy x-ray absorptiometry was performed of the lumbar spine and left hip. The images are of good technical quality. Summary results are attached. FINDINGS: LEFT FEMUR, NECK: Current: BMD 0.690 g/cm2, Z-score -0.4, T-score -2.5, osteoporosis. Prior: BMD 0.653 g/cm2. Baseline: BMD 0.689 g/cm2. LEFT FEMUR, TOTAL: Current: BMD 0.751 g/cm2, Z-score -0.1, T-score -2.0, osteopenia, 1.6% increase from previous, 3.6% decrease from baseline (<5% change is not significant). Prior: BMD 0.739 g/cm2. Baseline: BMD 0.779 g/cm2. AP SPINE L1-L4: Current: BMD 1.111 g/cm2, Z-score 1.6, T-score -0.6, normal, 4.4% decrease from previous, 2.3% decrease from baseline (<5% change is not significant). Prior: BMD 1.162 g/cm2. Baseline: BMD 1.137 g/cm2. IDENTIFIED RISK FACTORS: Osteoporosis, parental hip fracture, history of fracture (adult), menopause. HISTORY OF FRACTURE: Other. MEDICATIONS: Calcium or multivitamin. MM/XR DEXA axial skeleton IMPRESSION: 1. DIAGNOSIS: Osteoporosis based on the lowest T-score value of -2.5 in the femoral neck applying World Health Organization criteria. 2. 10-YEAR FRACTURE RISK PREDICTION, FRAX: According to the guidelines, FRAX calculation should only be performed on patients in the osteopenia bone density category. Therefore, FRAX was not performed on this patient. 3. Treatment Recommendations: NOF guidelines recommend consideration for treatment in postmenopausal women and men age 50 and older presenting with the following: -A hip or vertebral (clinical or morphometric) fracture. -T-score less than or equal to -2.5 at the femoral neck or spine after appropriate evaluation to exclude secondary causes. -Low bone mass at the hip or spine and a 10-year fracture probability by FRAX of greater than or equal to 3% for hip fracture or greater than or equal to 20% for major osteoporotic fracture based on the [place] adapted WHO algorithm. 4. Other Recommendations: All treatment decisions require clinical judgment and consideration of individual patient factors, including patient preferences, comorbidities, previous drug use, risk factors not captured in the FRAX model (e.g. frailty, falls, vitamin D deficiency, increased bone turnover, interval significant decline in bone density) and possible under or overestimation of fracture risk by FRAX. Additional medical evaluation for secondary cause of low bone mineral density may be appropriate. FUTURE SCAN RECOMMENDATION: People with diagnosed cases of osteoporosis or at high risk for fracture should have regular bone mineral density tests. For patients eligible for Medicare, routine testing is allowed once every 2 years. The testing frequency can be increased to one year for patients who have rapidly progressing disease, those who are receiving or discontinuing medical therapy to restore bone mass, or have additional risk factors. Electronically signed by: Alphonse Brown MD 06/26/2024 08:51 AM EDT
== END 2024-06-18 09:57 | disposition home or self-care (01) ==
LOC: HO.MAMMO 09:56
PROVIDERS: PCP Internal Medicine; Visit Provider Internal Medicine
DX: Z12.31 Encounter for screening mammogram for malignant neoplasm of breast (principal); M81.0 Age-related osteoporosis without current pathological fracture; Z92.29 Personal history of other drug therapy
CPT/HCPCS: 77063; 77067; 77080

== ENCOUNTER → 2024-06-18 10:15 | Outpatient (BNV) | payer MEDICARE, SELFPAY | PROVIDERS: PCP Internal Medicine; Visit Provider Radiology Diagnostic Radiology | DX: Z12.31 Encounter for screening mammogram for malignant neoplasm of breast (principal) | CPT/HCPCS: 77063; 77067 ==

== ENCOUNTER 2024-09-03 08:52 | Day surgery (SDC) | payer MEDICARE, SELFPAY ==
[2024-08-30 11:43] VITALS: BMI 19.8
--- NOTE | 2024-09-02 11:44 | HO.ANESPROP2 ---
HPI - Anesthesia Eval Consult details Narrative: 74yo F for Upper Endoscopy and Colonoscopy PMFSH Active Problems Active Problems: All Active Problems Mass in neck (Acute) Encounter for subsequent annual wellness visit (AWV) in Medicare patient (Acute) Seborrheic keratosis (Acute) Trigger finger, left ring finger (Acute) Ductal carcinoma in situ (DCIS) of right breast (Acute) Hiatal hernia (Acute) Osteoporosis (Acute) Hypertension (Acute) Past Medical History Medical History (Updated 08/30/24 @ 11:29 by Kirsten Flores RN) Hx of radiation therapy GERD (gastroesophageal reflux disease) DCIS (ductal carcinoma in situ) of breast Hiatal hernia Osteoporosis Family history of cancer Hypertension Breast cancer Family History Family History Sister Pancreatic cancer Maternal Aunt Breast cancer Pancreatic cancer Colon cancer Paternal Aunt Breast cancer Surgical History Surgical History (Updated 08/30/24 @ 11:29 by Kirsten Flores RN) Hx of hemorrhoidectomy H/O colonoscopy History of appendectomy History of lumpectomy Social History Social History Household Members: Spouse Housing: House Are you a primary rental boats caretaker to a significant other at home: No Do you presently have visiting nurse or other home services: No Alcohol intake: current Alcohol intake frequency: holidays/special occasions only Patient Tobacco Use Status: Never used Tobacco e-Cigarette/Vaping Use: Never Used Use of substances other than those prescribed or required for medical reasons: No Are you DNR?: No Advance Directives: No Advance Directives Information Provided: Yes service: No 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al status: retired 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 Cognitive needs: No Hearing needs: No Vision needs: Yes Meds Allergies Allergy/AdvReac Type Severity Reaction Status Date / Time sulfamethoxazole Allergy Severe blisters/ph Verified 09/03/24 09:22 [From BACTRIM] otosensitiv ity trimethoprim [From BACTRIM] Allergy Severe blisters/ph Verified 09/03/24 09:22 otosensitiv ity codeine [CODEINE] Allergy Intermediate Nausea and Verified 09/03/24 09:22 Vomiting indomethacin [From Indocin] Allergy Hives Verified 09/03/24 09:22 Home Medications ?Medication ?Instructions ?Recorded ?Confirmed ?Last Taken ?Type lactobacillus combination no.4 3 3,000 mmu cells PO DAILY 10/13/20 09/03/24 Unknown History billion cell capsule (Probiotic) calcium carbonate 500 mg-vitamin 500 tab PO DAILY breast cancer 01/13/23 09/03/24 Unknown History D3 10 mcg (400 unit) chewable tablet (Calcium 500 + D) Exam Height,Weight and Vital Signs: Height 5 ft 3 in Weight 50.802 kg Assessment and Plan Assessment Anesthesia Assessment: Chart Reviewed
[2024-09-03 09:24] VITALS: BMI 20.4
[2024-09-03 09:39] VITALS: PULSE 70; RESP 16; TEMP 37.1; O2SAT 100
[2024-09-03 09:53] VITALS: BP 179/92
[2024-09-03] MEDS: Lactated Ringers 1,000 ML 100 ML IVCONT (09:53)
--- NOTE | 2024-09-03 10:09 | MHC.SHP ---
Pre-Procedural Eval Section A - 24 Hr Update-Section A only Date of Service: 09/03/24 Section B - Complete if H&P > 30 days Chief Complaint: Encounter for screening for malignant neoplasm of Details of Present Illness: see H&P no changes Relevant Family History (Specify if Yes): No Relevant Social History: None Present Medications: see Short Stay Collaborative assessment Medical History: No relevant PMH History of Previous Operations: No relevant previous surgery Allergies: Allergies Allergy/AdvReac Type Severity Reaction Status Date / Time sulfamethoxazole Allergy Severe blisters/ph Verified 09/03/24 09:22 [From BACTRIM] otosensitiv ity trimethoprim [From BACTRIM] Allergy Severe blisters/ph Verified 09/03/24 09:22 otosensitiv ity codeine [CODEINE] Allergy Intermediate Nausea and Verified 09/03/24 09:22 Vomiting indomethacin [From Indocin] Allergy Hives Verified 09/03/24 09:22 Review of Systems Sugical H&P ROS: Negative: Constitution, Cardiovascular, Respiratory, Neurological, Psychiatric, Hem-Onc, Allergic/Immunologic, Gastrointestinal, Genitourinary, Musculoskeletal, Integumentary, Endocrine and Eyes/Ears/Nose/Throat Exam Surgical H&P Exam: Normal: HEENT, Normal: Heart, Normal: Lungs, Normal: Extremities, Normal: Abdomen, Normal: Skin and Normal: Neurological Plan Diagnosis/Plan: Unchanged I have reviewed the history and physical and performed a pertinent physical examination on my patient. No changes have occurred unless specified. Time Spent With Patient Time: Total time managing care of this patient today ____ minutes.
[2024-09-03 11:15] VITALS: BP 106/61; PULSE 66; RESP 15; TEMP 36.1; O2SAT 100
[2024-09-03 11:28] VITALS: BP 136/77; PULSE 67; RESP 16; TEMP 36.2; O2SAT 100
--- NOTE | 2024-09-03 11:49 | OP_ITS ---
DATE OF SERVICE: 09/03/2024 SURGEON: Bogdan Ruby MD INDICATIONS: Colon cancer screening and gastroesophageal reflux disease. PREOPERATIVE DIAGNOSIS: POSTOPERATIVE DIAGNOSIS: PROCEDURE PERFORMED: Upper endoscopy with biopsy, colonoscopy to the terminal ileum. ESTIMATED BLOOD LOSS: COMPLICATIONS: ANESTHESIA: Monitored anesthesia care. ASSISTANTS: SPECIMENS: DESCRIPTION OF PROCEDURE: A history and physical were performed. The risks and benefits of the procedure were explained to the patient. Informed consent was obtained. The patient was placed in the left lateral decubitus position. The Olympus video gastroscope was introduced into the esophagus, stomach, and duodenum. Examination was performed. The scope was removed. She was repositioned for colonoscopy. A digital rectal exam was performed and was found to be normal. The Olympus pediatric video colonoscope was introduced into the rectum and advanced to the cecum. The cecum was identified by transillumination, palpation, and identification of ileocecal valve. Examination was performed. The scope was removed. She tolerated both procedures well, returned to recovery area in stable condition. FINDINGS: Upper endoscopy: 1. Esophagus: The esophagus showed an irregular EG junction. This was biopsied. 2. Stomach: The stomach showed no evidence of masses or ulcers. Antral biopsies were obtained to rule out H pylori. 3. Duodenum: The bulb and 2nd portion were normal. Colonoscopy: The terminal ileum was examined and appeared normal. The visualized colonic mucosa was within normal limits without evidence of masses or ulcers. There was mild sigmoid diverticulosis. There was liquid stool present which limited the sensitivity examination for detection of small polyps. No polyps were identified. Retroflexed examination showed some small internal hemorrhoids. IMPRESSION: 1. Gastroesophageal reflux disease. 2. Normal colonoscopy. RECOMMENDATION: 1. Follow up the biopsy results. 2. Repeat colonoscopy is recommended in 10 years for average-risk individuals. MD CARL Brooke/MARQUITAL / [id number]
== END 2024-09-03 11:51 | disposition home or self-care (01) ==
PROVIDERS: PCP Internal Medicine; Visit Provider Internal Medicine Gastroenterology
PROC: (CPT 43239; principal; 2024-09-03 10:50)
DX: K22.89 Other specified disease of esophagus (principal); K21.9 Gastro-esophageal reflux disease without esophagitis; Z12.11 Encounter for screening for malignant neoplasm of colon; K57.30 Diverticulosis of large intestine without perforation or abscess without bleeding; K64.8 Other hemorrhoids; R93.3 Abnormal findings on diagnostic imaging of other parts of digestive tract; I10 Essential (primary) hypertension; D05.11 Intraductal carcinoma in situ of right breast; Z92.3 Personal history of irradiation; Z79.899 Other long term (current) drug therapy
CPT/HCPCS: 43239; G0121; 88305; 88313; 88342; J2003; J2704

== ENCOUNTER 2025-01-02 09:04 | Outpatient (AMB) | payer MEDICARE, SELFPAY ==
--- NOTE | 2025-01-02 09:14 | MHC.PC.OV ---
Vital Signs 01/02/25 09:18 Height 5 ft 1 in Weight 112 lb BMI 21.2 BP 184/92 H Blood Pressure Location Lt brachial Position Sitting Respiration 16 Pulse 75 Pulse Source Pulse Oximeter Temp 98.1 F Temp Source Oral Pulse Oximetry (%) 99 Oxygen Delivery Method Room Air Intake Visit Reasons: F/U HTN Intake Note: Pt is here today for her HTN Allergies sulfamethoxazole [From BACTRIM] Allergy (Severe, Verified 01/02/25 09:35) blisters/photosensitivity trimethoprim [From BACTRIM] Allergy (Severe, Verified 01/02/25 09:35) blisters/photosensitivity codeine [CODEINE] Allergy (Intermediate, Verified 01/02/25 09:35) Nausea and Vomiting indomethacin [From Indocin] Allergy (Verified 01/02/25 09:35) Hives Medication List - Last Reconciled 01/02/25 by Glenys Looney MD calcium carbonate-vitamin D3 500 mg-10 mcg (400 unit) (Calcium 500 + D) 500 tabs PO DAILY MDD 500 famotidine 40 mg PO BEDTIME lactobacillus combination no.4 (Probiotic) 3,000 mmu cells PO DAILY metoprolol succinate ER 100 mg PO DAILY Tobacco use date assessed: 01/02/25 Fall risk assessment: No Falls in past year Last assessed Fall Risk: 01/02/25 Dental Screening Dental Screen Date: 01/02/25 Did you have a dental visit in the last 12 months?: Yes Did you have a dental problem in the last 6 months where you did not have access to dental care?: Yes Was dental information given to patient?: Patient has dentist HPI F/U HTN HPI Details 74-year-old lady with hypertension, as well as white coat hypertension, here today for follow-up. Patient is currently on metoprolol succinate 100 mg daily. Patient has been checking her blood pressure at home and it usually runs around 130/80 but occasionally when she would up to 180 over 100 especially when she is under a lot of stress or when she goes to the doctor's office. [facility] Medical History (Updated 01/02/25 @ 09:51 by Glenys Looney MD) Dyslipidemia Hx of radiation therapy GERD (gastroesophageal reflux disease) DCIS (ductal carcinoma in situ) of breast Hiatal hernia Osteoporosis Family history of cancer Hypertension Breast cancer Surgical History Hx of hemorrhoidectomy H/O colonoscopy History of appendectomy History of lumpectomy Family History Sister Pancreatic cancer Maternal Aunt Breast cancer Pancreatic cancer Colon cancer Paternal Aunt Breast cancer Social History Household Members: Spouse Housing: House Are you a primary point of care specialist to a significant other at home: No Do you presently have visiting nurse or other home services: No Alcohol intake: current Alcohol intake frequency: holidays/special occasions only Patient Tobacco Use Status: Never used Tobacco e-Cigarette/Vaping Use: Never Used service: No 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al status: retired 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 1. Little interest or pleasure in doing things: not at all 2. Feeling down, depressed, or hopeless: not at all 3. Trouble falling or staying asleep, or sleeping too much: not at all 4. Feeling tired or having little energy: not at all 5. Poor appetite or overeating: not at all 6. Feeling bad about yourself - or that you are a failure or have let yourself or your family down: not at all 7. Trouble concentrating on things, such as reading the newspaper or watching television: not at all 8. Moving or speaking so slowly that other people could have noticed. Or the opposite - being so fidgety or restless that you have been moving around a lot more than usual: not at all 9. Thoughts that you would be better off or of hurting yourself in some way: not at all Total score: 0 Depression Screening Interpretation: Negative Depression Screening Done: Yes 48442 - PHQ-9 Billing: Yes Source: Developed by Drs. Yuri Ruiz, Cindi Mitchell, Camacho North and colleagues, with an educational jass from [employer]. Thrive Questionnaire Date Thrive assessed: 12/27/24 I am a: Patient What is your living situation today?: I have a steady place to live Within the past 12 months, did the food you bought not last and you didn't have the money to get more?: Never true Within the past 12 months, did you worry whether your food would run out before you got money to buy more?: Never true Do you have trouble paying for medicines?: No Do you have trouble getting transportation to medical appointments?: No Do you have trouble paying your heating and electricity bill?: No Do you have trouble taking care of your child, family member or friend?: No Do you have trouble with day-to-day activities such as bathing, preparing meals, shopping, managing finances, etc.?: No Are you currently unemployed and looking for a job?: No Are you interested in more education?: No Please select the resources that you would like help with: None Currently or been in a relationship where the following occur: No concerns reported THRIVE Score: 0 AUDIT C Alcohol Use Questionnaire (AUDIT-C) 1. How often do you have a drink containing alcohol?: Monthly or less 2. How many drinks containing alcohol do you have on a typical day when you are drinking?: 1 or 2 3. How often do you have six or more drinks on one occasion?: Never Total Score: 1 JADE-7 AMB Questionnaire JADE-7 Date JADE - 7 assessed: 01/02/25 Feeling nervous, anxious, or on edge: 0 = Not at all Not being able to stop or control worryin = Not at all Worrying too much about different things: 0 = Not at all Trouble relaxin = Not at all Being so restless that it is hard to sit still: 0 = Not at all Becoming easily annoyed or irritable: 0 = Not at all Feeling afraid as if something awful might happen: 0 = Not at all Total JADE-7 score (0-4 normal; 5-9 mild; 10-14 moderate; 15-21 severe): 0 Source: Developed by Drs. Yuri Ruiz, Cindi Mitchell, Camacho [place] and colleagues, with an educational jass from [employer]. JADE-7 Assessment Billing JADE-7 Assessment Tool: JADE-7 Assessment 74160 Review of Systems Const Reports no additional complaints Eyes Reports no additional complaints ENT Reports no additional complaints Card Denies chest pain, Denies rapid heart rate, Denies irregular heart rhythm and Denies dyspnea Resp Denies cough, Denies hemoptysis and Denies dyspnea GI Denies abdominal pain, Denies bloating, Denies constipation, Denies GI cramping, Denies early satiety, Denies dyspepsia and Denies heartburn Reports no additional complaints Musc Reports no additional complaints Skin/Breast Denies breast swelling, Denies breast skin changes, Denies breast pain and Denies breast mass Neuro Reports no additional complaints Endo Reports no additional complaints Kyle/Lymph Denies lymphadenopathy Physical exam (Primary Care) Vital Signs: Last Vital Signs Temp 98.1 F 01/02/25 09:18 Pulse 75 01/02/25 09:18 Resp 16 01/02/25 09:18 BP 184/92 H 01/02/25 09:18 Pulse Ox 99 01/02/25 09:18 Oxygen Delivery Method Room Air 01/02/25 09:18 BMI result Body Mass Index 21.2 Tobacco/Smoking Status: Tobacco use Status Tobacco use date assessed 01/02/25 01/02/25 09:21 Patient Tobacco Use Status Never used Tobacco 01/02/25 09:21 e-Cigarette/Vaping Use Never Used 01/02/25 09:21 PHQ-9: PHQ-9 Score PHQ-9: Total score 0 01/05/25 00:28 Depression Screening Interpretation: Negative Thrive Assessment: Date of Thrive Assessment Date Thrive assessed 12/27/24 01/02/25 09:21 Currently or been in a relationship where the following occur: No concerns reported Const General: no acute distress and alert Nutritional Appearance: average body habitus Orientation/consciousness: patient oriented x3 HENMT Mouth: Normal oral and palatal mucosa present and moist mucous membranes Neck Neck: Yes full ROM, Yes no lymphadenopathy and Yes supple Resp Auscultation: clear to auscultation bilaterally Cardio Other: S1-S2 present regular rate and rhythm GI Other: Normal bowel sounds, soft, nontender with no mass palpated Neuro General: patient oriented x3, gait normal, moves all extremities, Normal light touch and pain sensation and no focal motor deficits Extrem General: Yes full ROM, Yes no joint enlargement, Yes no clubbing, cyanosis or edema and Yes normal gait Coding Level of Care Code Est Pt Level 4 (04475) Complex EM visit Add On G2211 Diagnoses Primary hypertension I10 Hypertension type: primary hypertension Age-related osteoporosis without current pathological fracture M81.0 Osteoporosis type: age-related Presence of current pathological fracture: without current pathological fracture Dyslipidemia E78.5 Additional Codes JADE-7 Assessment Billing - JADE-7 Assessment Tool: JADE-7 Assessment 65993 ([id number]) PHQ-9 - 41360 - PHQ-9 Billing: Yes ([id number]) Assessment & Plan Assessment & Plan (1) Hypertension: Code(s): I10 - Essential (primary) hypertension Category: Medical Qualifiers: Hypertension type: primary hypertension Qualified Code(s): I10 - Essential (primary) hypertension Plan: Continue metoprolol succinate at same dose, added losartan 50 mg daily. Reinforced importancOf following a low salt diet, continue monitoring blood pressure at home, and continue with regular exercise.. Reminded to get her fasting comprehensive metabolic panel done, ordered by Dr. Quiroz (2) Osteoporosis: Code(s): M81.0 - Age-related osteoporosis without current pathological fracture Category: Medical Qualifiers: Osteoporosis type: age-related Presence of current pathological fracture: without current pathological fracture Qualified Code(s): M81.0 - Age-related osteoporosis without current pathological fracture Plan: Will check vitamin-D level. Continue with doing regular weight-bearing exercise and continue with taking calcium and vitamin-D supplements. Does not want to start any treatment at present time, will repeat another bone density scan next year. (3) Dyslipidemia: Code(s): E78.5 - Hyperlipidemia, unspecified Category: Medical Plan: Fasting lipid panel ordered, reinforced importance of following a low-cholesterol diet and getting regular exercise. Orders: Orders Vitamin D 25-OH Total 2 Weeks E78.5 - Hyperlipidemia, unspecified, I10 - Essential (primary) hypertension, M81.0 - Age-related osteoporosis without current pathological fracture Lipid Panel 2 Weeks E78.5 - Hyperlipidemia, unspecified, I10 - Essential (primary) hypertension, M81.0 - Age-related osteoporosis without current pathological fracture Medications: New losartan 50 mg PO DAILY 30 tabs 2RF Refilled famotidine 40 mg PO BEDTIME 90 tabs 3RF metoprolol succinate ER 100 mg PO DAILY 90 tabs 1RF I10 - Essential (primary) hypertension
[2025-01-02 09:18] VITALS: BP 184/92; PULSE 75; RESP 16; TEMP 36.7; O2SAT 99; BMI 21.2
--- OUTSIDE RECORDS SUMMARY | 2025-01-02 10:02 | XMS_ITS ---
Author Organization [facility] Address [address] [place] [address] Care Team Providers Care Shipping Helper Name Role Phone Aure WONG, Glenys Primary Care Provider Bogdan Mcfadden Jr Unavailable Allergies Allergen (clinical drug ingredient) Drug/Non Drug Allergy documented on EMR Reaction Allergy Type Onset Date Status indomethacin Indocin Unknown Drug Allergy Acti ve Codeine Phosphate Unknown Drug Allergy Active Bactrim Unknown Drug Allergy Active REASON FOR VISIT Patient presents today for a recall colonoscopy, discuss EGD Barium swallow scanned ) Medications Medication SIG (Take, Route, Frequency, Duration) Notes Start Date End Date Status Vitafusion 0.18-32.5 MG as directed Orally Active Probiotic Active MiraLax (colon prep) 17 GM/SCOOP mixed with Gatorade or Crystal Light Orally begin at 5:00 p.m. the day before the procedure for 1 day 07/22/2024 Active Famotidine 40 MG 1 tablet Orally Once a day for 30 day(s) Active Metoprolol Succinate ER 100 MG 1 tablet Orally Once a day for 30 day(s) Active Problems Problem Type SNOMED Code ICD Code Onset Dates Problem Status W/U Status Risk Notes Problem 163230323 Abnormal finding s on diagnostic imaging of other parts of digestive tract (R93.3) Active confirmed Problem [id number] Colon cancer screening (Z12.11) Active confirmed Problem [id number] Gastroesophageal reflux disease without esophagitis (K21.9) Active confirmed Vital Signs Temperature 97.1 degrees Fahrenheit 07/22/20 24 Blood pressure systolic 000 mm Hg 07/22/20 24 Blood pressure diastolic 00 mm Hg 024 Height 63.25 in 07/22/2024 Weight 112 lb 6 oz lbs 07/22/2024 BMI 19.75 kg/m2 07/22/2024 Encounters Encounter Location Date Provider Diagnosis [facility] [address] [place] [address] 07/22/2024 Bogdan Ruby Jr Abnormal findings on diagnostic imaging of other parts of digestive tract R93.3 ; Colon cancer screening Z12.11 and Gastroesophageal reflux disease without esophagitis K21.9 Assessments Encounter Date Diagnosis (ICD Code) Assessment Notes Treatment Notes Treatment Clinical Notes Section Notes 07/22/2024 Abnormal findings on diagnostic imaging of other parts of digestive tract (ICD-10 - R93.3) We discussed gastroesophageal reflux disease today. We discussed diet, lifestyle modifications, and weight management. We recommended she continue famotidine. Because of her x-ray and her symptoms we recommended she undergo upper endoscopy. We discussed risks and benefits of the procedure today. She understands these and agrees to proceed. She is agreeable to having colonoscopy at the same time. 07/22/2024 Colon cancer screening (ICD-10 - Z12.11) We discussed gastroesophageal reflux disease today. We discussed diet, lifestyle modifications, and weight management. We recommended she continue famotidine. Because of her x-ray and her symptoms we recommended she undergo upper endoscopy. We discussed risks and benefits of the procedure today. She understands these and agrees to proceed. She is agreeable to having colonoscopy at the same time. 07/22/2024 Gastroesophageal reflux disease without esophagitis (ICD-10 - K21.9) We discussed gastroesophageal reflux disease today. We discussed diet, lifestyle modifications, and weight management. We recommended she continue famotidine. Because of her x-ray and her symptoms we recommended she undergo upper endoscopy. We discussed risks and benefits of the procedure today. She understands these and agrees to proceed. She is agreeable to having colonoscopy at the same time. Plan Of Treatment Medication Medication Name Sig Start Date Stop Date Notes MiraLax (colon prep) 17 GM/SCOOP mixed with Gatorade or Crystal Light Orally begin at 5:00 p.m. the day before the procedure for 1 day 07/22/2024 Future Test Test Name Order Date UPPER GI ENDOSCOPY 07/22/2024 COLONOSCOPY 07/22/2024 Next Appt Details Follow Up: prn, Reason: Progress Notes * LI, CARLO IDOB: 2 (74 yo F)Acc No.[id number]:07/22/2024 Progress Notes Patient:?CARLO LI I Provider:?Bogdan Ruby MD :1950???Age:74 Y???Sex:Female D ate:07/22/2024 Address:[address] [place] [address] Pcp:Glenys Looney MD Subjective: * Chief Complaints: * ???1. Patient presents today for a recall colonoscopy, discuss EGD Barium swallow scanned ). * HPI: ???New symptom(s):? Carlo is a pleasant 74-year-old woman seen today in consultation. She has a history of gastroesophageal reflux disease with substernal burning precipitated by typical foods including spicy foods and fatty foods. She's been using famotidine over the past 2 years 40 mg once daily which controls her symptoms well. She has had some dysphagia but no hematemesis or melena. Evaluation with a barium swallow on 06/06/22 showed a small sliding hiatal hernia without gastroesophageal reflux. We reviewed this today. ?She also has a history of colon polyps and underwent colonoscopy in 2014 which was negative for polyps. She is due for followup. She has no complaints of rectal bleeding. She has no change in her bowel habits. * ROS:?General/Constitutional:?Change in appetite?denies.?Fatigue?denies.?ENT:?Patient denies?difficulty swallowing.?Respiratory:?Patient denies?shortness of breath.?Cardiovascular:?Patient denies?chest pain.?Gastrointestinal:?Comments?See HPI for details.?Genitourinary:?Difficulty urinating?denies.?Incontinence?denies.?Musculoskeletal:?Patient denies?muscle aches.?Skin:?Patient denies?pruritis.?Neurologic:?Patient denies?low back pain.?Psychiatric:?Patient denies?mental or physical abuse.? * Medical History:?Colonoscopy 2014, negative, ten-year followup, 2016 DCIS right breast, lumpectomy , Hiatal hernia, Osteoporosis, Hypertension, Gastroesophageal reflux disease. * Surgical History:?appendecto my , hemorrhoid banding , lumpectomy, radiation . * Family History:?Father: dece ased, diagnosed with HTN (hypertension), Heart disease.?Mother: , diagnosed with HTN (hypertension).? The patient has a negative family history for colorectal cancer. No family history of liver cancer. Sister has pancreatic cancer. * Social History:?Tobacco Use:?Tobacco Use/Smoking?Are you a: nonsmoker , Additional Findings: Tobacco Non-User: Non-smoker for personal reasons.?Drugs/Alcohol:?Alcohol Screen?Points: 1, Interpretation: Negative.?Miscellaneous:?Marital status: . 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 * Medications:?Taking Vitafusi on 0.18-32.5 MG Tablet Chewable as directed Orally , Taking Famotidine 40 MG Tablet 1 tablet Orally Once a day, Taking Metoprolol Succinate ER 100 MG Tablet Extended Release 24 Hour 1 tablet Orally Once a day, Taking Probiotic , Discontinued Lisinopril , Discontinued Aspirin , Discontinued MoviPrep 100 GM Solution Reconstituted as directed before colonoscopy Orally , Medication List reviewed and reconciled with the patient * Allergies:?Codeine Phosphate , Bactrim, Indocin. Objective: * Vitals:?Wt: 112 lb 6 oz, Ht: 63.25 in, BMI:19.75 Index, BP: 000/00 mm Hg, Temp: 97.1. * Examination: ???General Examination: ?GENERAL APPEARANCE:?in no acute distress.?HEAD:?normocephalic.?EYES:?sclera non-icteric.?ORAL CAVITY:?mucosa moist.?NECK/THYROID:?no lymphadenopathy.?SKIN:?anicteric.?HEART:?S1, S2 normal, no murmurs.?LUNGS:?clear to auscultation bilaterally.?CHEST:?normal shape and expansion.?ABDOMEN:?soft, nontender, nondistended, bowel sounds present, no organomegaly .?EXTREMITIES:?no clubbing, cyanosis, or edema.?PSYCH:?cognitive function intact.? Assessment: * Assessment: 1.?Abnormal findings on diag nostic imaging of other parts of digestive tract - R93.3 (Primary)?2.?Colon cancer screening - Z12.11?3.?Gastroesophageal reflux disease without esophagitis - K21.9? We discussed gastroesophagea l reflux disease today. We discussed diet, lifestyle modifications, and weight management. We recommended she continue famotidine. Because of her x-ray and her symptoms we recommended she undergo upper endoscopy. We discussed risks and benefits of the procedure today. She understands these and agrees to proceed. She is agreeable to having colonoscopy at the same time. Plan: * Treatment: 2.?Colon cancer screening? Start MiraLax (colon prep) Powder, 17 GM/SCOOP, mixed with Gatorade or Crystal Light, Orally, beginat 5:00 p.m. the day before the procedure, 1 day, 8.3 Ounce, Refills 0.?Procedure: COLONOSCOPY (Ordered for 07/22/2024)* sched for 09/03/24 at 11:50 a mmacmiralax * Procedure Codes:?3017F COLOR ECTAL CA SCREEN DOC REV, G9903 Pt scrn tbco id as non user, G9745 DOC RSN FOR NOT SCREEN/REC F/U HBP * Preventive Medicine:? ??Urinary Incontinence:?Urinary Incontinence?Assessment:?Absent,?Plan of care documented:?No, reason not specified.? ??Screenings:?Fall Risk Screening?Fall Risk Assessment:?No falls in the past year.? * Follow Up:?prn * * Sign off status: Completed true * Provider:?Bogdan Ruby MD Date:?0 07/22/2024 Generated for Mari otero/Krishna/Raineritting on:?01/02/2025 10:02 AM EST History and Physical Notes * HPI (History of Present Illness) Category Sub-Category Detail Notes Category Not es New symptom(s) Carlo is a pleasant 74-year-old woman seen today in consultation. She has a history of gastroesophageal reflux disease with substernal burning precipitated by typical foods including spicy foods and fatty foods. She's been using famotidine over the past 2 years 40 mg once daily which controls her symptoms well. She has had some dysphagia but no hematemesis or melena. Evaluation with a barium swallow on 06/06/22 showed a small sliding hiatal hernia without gastroesophageal reflux. We reviewed this today. She also has a history of colon polyps and underwent colonoscopy in 2013 which was negative for polyps. She is due for followup. She has no complaints of rectal bleeding. She has no change in her bowel habits. Examination Category Sub-Category Detail Notes Category Not es General Examination GENERAL APPEARANCE: in no acute di stress HEAD: normocephalic EYES: sclera non-icteric NECK/THYROID: no lymphadenopathy HEART: S1, S2 normal, no mu rmurs CHEST: normal shape and exp ansion LUNGS: clear to auscultatio n bilaterally ABDOMEN: soft, nontender, non distended, bowel sounds present, no organomegaly SKIN: anicteric EXTREMITIES: no clubbing, cyanosi s, or edema PSYCH: cognitive function i ntact ORAL CAVITY: mucosa moist
--- OUTSIDE RECORDS SUMMARY | 2025-01-02 10:02 | XMS_ITS ---
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 Filtering Supervisor Name Role Phone Aure WONG, Glenys Primary Care Provider Bogdan Mcfadden Jr [phone] REASON FOR VISIT abnormal UGI series,screening Problems Problem Type SNOMED Code ICD Code Onset Dates Problem Status W/U Status Risk Notes Problem Gastro-esophagea l reflux disease without esophagitis ([id number]) Gastro-esophage al reflux disease without esophagitis (K21.9) Active confirmed Encounters Encounter Location Date Provider Diagnosis [facility] [address] [place] [address] [phone] 09/03/2024 Bogdan Ruby Jr Colon cancer screening Z12.11 and Gastro-esophageal reflux disease without esophagitis K21.9 Assessments Encounter Date Diagnosis (ICD Code) Assessment Notes Treatment Notes Treatment Clinical Notes Section Notes 09/03/2024 Colon cancer screening (ICD-10 - Z12.11) 09/03/2024 Gastro-esophagea l reflux disease without esophagitis (ICD-10 - K21.9) Plan Of Treatment No Information Progress Notes * CARLO LI IDOB: 2 (74 yo F)Acc No.[id number]:09/03/2024 EGD&COL/MAC Patient:?CARLO LI I Provider:?Bogdan Ruby MD :1950???Age:74 Y???Sex:Female D ate:09/03/2024 Address:[address] [place], [place] [id number] Pcp:Glenys Looney MD Subjective: * Chief Complaints: * ???1. abnormal UGI series,sc reestephen. * Medical History:? Objective: * Vitals:? Assessment: * Assessment: 1.?Colon cancer screening - Z12.11 (Primary)???2.?Gastro-esophageal reflux disease without esophagitis - K21.9??? Plan: * Treatment: * Procedure Codes:?47437 DIAGN OSTIC COLONOSCOPY, 0529F INTRVL 3+YRS PTS CLNSCP DOCD, 0528F RCMND FLW-UP 10 YRS DOCD, 66647 UPPER GI ENDOSCOPY, BIOPSY * * The named appointment provid er may or may not be the originator of this progress note, and it is not deemed complete until electronically signed by the appointment provider. Sign off status: Pending * Provider:?Bogdan Ruby MD Date:?1 11/03/2023 Generated for Mari otero/Krishna/Melinasmitting on:?01/02/2025 10:02 AM EST
--- OUTSIDE RECORDS SUMMARY | 2025-01-02 10:02 | XMS_ITS | Patient Health Record ---
Author Organization [facility] Address [address] [place] [address] Care Team Providers Care Bulldozer Mechanic Name Role Phone Aure WONG, Glenys Primary Care Provider Bogdan Mcfadden Jr Allergies Allergen (clinical drug ingredient) Drug/Non Drug Allergy documented on EMR Reaction Allergy Type Onset Date Status Codeine Phosphate Unknown Drug Allergy Active Bactrim Unknown Drug Allergy Active indomethacin Indocin Unknown Drug Allergy Acti ve Results Component Value Reference Range Notes Pathology Reviewed date:09/12/2024 09:21:41 AM Interpretation: Performing Lab:[facility], [address] [place] [phone] Notes/Report: Name: Carlo Li I Age/Sex: 74/F : 1950 Unit#: [id number] Attend Dr: Bogdan Ruby MD Re09/03/24 Status : [facility] Location: [facility] Disch: SPEC : [id number] RECD : 09/03/24 STATUS: WHITLEY MISHRA NUM: [id number] BETTE: 09/03/24-[address]: Bogdan Ruby MD ENTERED: 09/03/24 33 SP TYPE: Surgical OTHR DR: Glenys Looney MD ORDERED: HE Stain/6, Gross Micro L4/2, IHC, Special st. 2/2, H. pylori, AB/PAS/2 Diagnosis A. Stomach, antrum, biopsy: Antral-type mucosa with mild chronic inactive inflammation; no Helicobacter organisms seen. B. EG junction, biopsy: - Cardiofundic-type mucosa with moderate chronic inactive inflammation; no intestinal metaplasia seen. - Squamous mucosa wi thin normal limits. Clinical History Pre-Op Dx: Screening Post-Op Dx: GERD, no rmal colon screening Microscopic Description A, B. Microscopic se ctions examined. No metaplastic changes are seen, supported by AB/PAS stains (A and B); no Helicobacter organisms are seen, supported by H. pylori immunostain (A). Material Received A. Antrum bx's B. EG junction Gross Description Received in two parts. Part A: Received in formalin labeled ?antrum bx's? are 2 haines-pink irregular tissue fragments each measu ring 0.25 cm, submitted in toto in a cassette labeled A. Part B: Received in formalin labeled ?EG junction? are 3 coleman-white and haines-pink irregular tissue fragments ran ging from minute to 0.25 cm, submitted in toto in a cassette labeled B. CEDS Special studies orde red and performed: Immunostain for H. pylori on A; AB/PAS stains on A and B CONTINUED ON NEXT PAGE Name: Li,Carlo I Age/Sex: 74/F : 1950 Unit#: [id number] Attend Dr: Bogdan Ruby MD Re09/03/24 Status : [facility] Location: [facility] Disch: SPEC : [id number] RECD : 09/03/24 STATUS: WHITLEY MISHRA NUM: [id number] BETTE: 09/03/24-[address]: Bogdan Ruby MD ENTERED: 09/03/24- 33 SP TYPE: Surgical OTHR DR: Glenys Looney MD ORDERED: HE Stain/6, Gross Micro L4/2, IHC, Special st. 2/2, H. pylori, AB/PAS/2 Copies To: Bogdan Ruby MD [address] [place], [place] [phone] Glenys Looney MD [facility] [id number] Signed (si gnature on file) Mani Ospina MD 09/05/24 1125 END OF REPORT Reason For Referral No Information Medications Medication SIG (Take, Route, Frequency, Duration) Notes Start Date End Date Status Famotidine 40 MG 1 tablet Orally Once a day for 30 day(s) Active Vitafusion 0.18-32.5 MG as directed Orally Active Metoprolol Succinate ER 100 MG 1 tablet Orally Once a day for 30 day(s) Active Probiotic Active MiraLax (colon prep) 17 GM/SCOOP mixed with Gatorade or Crystal Light Orally begin at 5:00 p.m. the day before the procedure for 1 day 07/22/2024 Active Immunizations Vaccine Route Administration Date Status Comme nts Influenza Unknown 07/09/2024 Administered Problems Problem Type SNOMED Code ICD Code Onset Dates Problem Status W/U Status Risk Notes Problem 947422086 Colon cancer screening (Z12.11) Active confirmed Problem Gastro-esophage al reflux disease without esophagitis (131652273) Gastro-esophageal reflux disease without esophagitis (K21.9) Active confirmed Problem 420361069 Abnormal finding s on diagnostic imaging of other parts of digestive tract (R93.3) Active confirmed Problem 595074663 Gastroesophageal reflux disease without esophagitis (K21.9) Active confirmed Vital Signs Temperature 97.1 degrees Fahrenheit 07/22/2024 Blood pressure diastolic 00 mm Hg 07/22/2024 Height 63.25 in 07/22/2024 Blood pressure systolic 000 mm Hg 07/22/2024 Weight 112 lb 6 oz lbs 07/22/2024 BMI 19.75 kg/m2 07/22/2024 Encounters Encounter Location Date Provider Diagnosis [facility] Out[facility] [address] [place], [place] [phone] 09/03/2024 Bogdan Ruby Jr Colon cancer screening Z12.11 and Gastro-esophageal reflux disease without esophagitis K21.9 [facility] [address] [place] [address] 07/22/2024 Bogdan Ruby Jr Abnormal findings on diagnostic imaging of other parts of digestive tract R93.3 ; Colon cancer screening Z12.11 and Gastroesophageal reflux disease without esophagitis K21.9 [facility] [address] [place] [address] 09/12/2024 Bogdan Ruby Jr Assessments Encounter Date Diagnosis (ICD Code) Assessment Notes Treatment Notes Treatment Clinical Notes Section Notes 09/03/2024 Colon cancer screening (ICD-10 - Z12.11) 09/03/2024 Gastro-esophageal reflux disease without esophagitis (ICD-10 - K21.9) 07/22/2024 Colon cancer screening (ICD-10 - Z12.11) [...] having colonoscopy at the same time. 07/22/2024 Abnormal findings on diagnostic imaging of [...] at the same time. Plan Of Treatment Future Test Test Name Order Date COLONOSCOPY 03/06/2014 UPPER GI ENDOSCOPY 07/22/2024 COLONOSCOPY 07/22/2024 Insurance Providers Payer Name Payer Address Payer Phone Subscriber Number Group Number Insured Name Patient Relationship to Insured Coverage Start Date Coverage End Date MEDICARE OF [place] [address] [place] [id number] CARLO LI Self - patient is the insured MEDEX ATTN CLAIMS [address] [place] [phone] [id number] CARLO LI Self - patient is the insured Medical (General) History Medical History History ICD Code Colonoscopy 2013, negative, ten-year fol lowup 2015 DCIS right breast, lumpectomy hiatal hernia osteoporosis hypertension Gastroesophageal reflux disease Surgical History Surgery Date(Month/Year) appendectomy hemorrhoid banding lumpectomy, radiation
--- OUTSIDE RECORDS SUMMARY | 2025-01-02 10:03 | XMS_ITS ---
Author Organization [facility] Address [address] [place] [address] Care Team Providers Care Coal Mine Inspector Name Role Phone Aure WONG, Glenys Primary Care Provider Tabatha Ruby Jr, Bogdan Tapia [phone] REASON FOR VISIT pathology/ waiting on pt call back Encounters Encounter Location Date Provider Diagnosis [facility] [address] [place] [address] 09/12/2024 Bogdan Ruby Jr Plan Of Treatment No Information Progress Notes * CARLO LI IDOB: 2 (74 yo F)Acc No.[id number]:09/12/2024 Patient:?CARLO LI I :1950???Age:74 Y???Sex:Female Address:[address] [place] [address] * true * Date:? Generated for Mari otero/Krishna/eTransmitting on:?01/02/2025 10:02 AM EST
== END 2025-01-02 09:59 | disposition home or self-care (01) ==
PROVIDERS: PCP Internal Medicine; Visit Provider Internal Medicine
DX: I10 Essential (primary) hypertension (principal); M81.0 Age-related osteoporosis without current pathological fracture; E78.5 Hyperlipidemia, unspecified

== ENCOUNTER → 2025-01-02 09:04 | Outpatient (BNVA) | payer MEDICARE, SELFPAY | PROVIDERS: PCP Internal Medicine; Visit Provider Internal Medicine | DX: I10 Essential (primary) hypertension (principal); M81.0 Age-related osteoporosis without current pathological fracture; E78.5 Hyperlipidemia, unspecified | CPT/HCPCS: 96127; 99212 ==

== ENCOUNTER 2025-01-13 13:15 | Outpatient (AMB) | payer MEDICARE, SELFPAY ==
--- NOTE | 2025-01-13 13:19 | HO.NEPHOV ---
Vital Signs 01/13/25 13:20 01/13/25 13:37 Height 5 ft 1 in Weight 111 lb BMI 21.0 BP 172/100 H 170/100 H Blood Pressure Location Rt brachial Rt brachial Position Sitting Sitting Pulse 87 Pulse Source Pulse Oximeter Pulse Oximetry (%) 98 Intake Visit Reasons: Pt referred by Glenys Looney/ Marcella Managing Director Required: No Accompanied by: Self / Same As Patient Allergies sulfamethoxazole [From BACTRIM] Allergy (Severe, Verified 01/02/25 09:35) blisters/photosensitivity trimethoprim [From BACTRIM] Allergy (Severe, Verified 01/02/25 09:35) blisters/photosensitivity codeine [CODEINE] Allergy (Intermediate, Verified 01/02/25 09:35) Nausea and Vomiting losartan Allergy (Unknown, Verified 01/13/25 13:23) Swelling indomethacin [From Indocin] Allergy (Verified 01/02/25 09:35) Hives Medication List - Last Reconciled 01/13/25 by Dada Gonzalez MD amlodipine 5 mg PO DAILY calcium carbonate-vitamin D3 500 mg-10 mcg (400 unit) (Calcium 500 + D) 500 tabs PO DAILY MDD 500 famotidine 40 mg PO BEDTIME lactobacillus combination no.4 (Probiotic) 3,000 mmu cells PO DAILY metoprolol succinate ER 100 mg PO DAILY HPI Comments Details: 74-year-old woman with a history of hypertension and possible superimposed white coat hypertension has been referred for evaluation hypertension. She is currently on metoprolol 100 mg a day. About 5 days ago amlodipine 5 mg has been added. Prior to that she was on losartan but this was discontinued because of a rash. She was on lisinopril several years ago which caused palpitation therefore that was discontinued as well. She has been monitoring her blood pressure at home. Usually systolic blood pressure is in the 130s to 140s. In the doctor's office setting blood pressure is always in the 170/1 80s. [facility] Medical History (Updated 01/07/25 @ 00:56 by Glenys Looney MD) Labile hypertension Dyslipidemia Hx of radiation therapy GERD (gastroesophageal reflux disease) DCIS (ductal carcinoma in situ) of breast Hiatal hernia Osteoporosis Family history of cancer Hypertension Breast cancer Surgical History Hx of hemorrhoidectomy H/O colonoscopy History of appendectomy History of lumpectomy Family History Sister Pancreatic cancer Maternal Aunt Breast cancer Pancreatic cancer Colon cancer Paternal Aunt Breast cancer Social History Household Members: Spouse Housing: House Are you a primary healthcare prof to a significant other at home: No Do you presently have visiting nurse or other home services: No Alcohol intake: current Alcohol intake frequency: holidays/special occasions only Patient Tobacco Use Status: Never used Tobacco e-Cigarette/Vaping Use: Never Used service: No 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al status: retired 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 Lungs entry equal no rales. Heart S1-S2 heard no gallop or rub. Abdomen soft nontender. Neuro alert awake oriented. No asterixis. Extremities no edema. Results Reviewed Nephrology Results: Hgb 12.6 g/dl (12.0-16.0) 01/15/24 WBC 6.7 X10*3/uL (4.8-10.8) 01/15/24 Plt Count 213 X10*3/uL (160-400) 01/15/24 Sodium 142 mmol/L (135-145) 01/15/24 Potassium 4.6 mmol/L (3.3-5.1) 01/15/24 Chloride 103 mmol/L (96-108) 01/15/24 Carbon Dioxide 29 mmol/L (22-29) 01/15/24 BUN 11 mg/dL (9-16) 01/15/24 Creatinine 1.05 mg/dL (0.5-1.4) 01/15/24 Calcium 10.2 mg/dL (8.4-10.2) 01/15/24 Assessment & Plan Assessment & Plan (1) Hypertension: Code(s): I10 - Essential (primary) hypertension Category: Medical Qualifiers: Hypertension type: primary hypertension Qualified Code(s): I10 - Essential (primary) hypertension Plan 74-year-old woman with a history of longstanding hypertension. Office readings elevated today. She probably has superimposed white coat effect. Plan Obtain 24 hour ambulatory blood pressure monitoring in 2 weeks In the meantime encouraged her to stay on a low-sodium diet. Continue current medication. Based on 24 hour ABP M I will readjust her medications. Orders: Orders AMB 24 HR B/P Monitor PLACEMENT Today I10 - Essential (primary) hypertension Coding Level of Care Code New Pt Level 4 (35407) Diagnoses Primary hypertension I10 Hypertension type: primary hypertension
[2025-01-13 13:20] VITALS: BP 172/100; PULSE 87; O2SAT 98; BMI 21.0
[2025-01-13 13:37] VITALS: BP 170/100
--- OUTSIDE RECORDS SUMMARY | 2025-01-13 15:25 | XMS_ITS ---
Author Organization [facility] Address [address] [place] [address] Care Team Providers Care Automotive Shop Foreman Name Role Phone Aure WONG, Glenys Primary Care Provider Bogdan Mcfadden Jr REASON FOR VISIT abnormal UGI series,screening Problems Problem Type SNOMED Code ICD Code Onset Dates Problem Status W/U Status Risk Notes Problem Gastro-esophagea l reflux disease without esophagitis (967379541) Gastro-esophage al reflux disease without esophagitis (K21.9) Active confirmed Encounters Encounter Location Date Provider Diagnosis [facility] [place] [address] [place] [phone] 09/03/2024 Bogdan Ruby Jr Colon cancer screening Z12.11 and Gastro-esophageal reflux disease without esophagitis K21.9 Assessments Encounter Date Diagnosis (ICD Code) Assessment Notes Treatment Notes Treatment Clinical Notes Section Notes 09/03/2024 Colon cancer screening (ICD-10 - Z12.11) 09/03/2024 Gastro-esophagea l reflux disease without esophagitis (ICD-10 - K21.9) Plan Of Treatment No Information Progress Notes * CARLO LI IDOB: 2 (74 yo F)Acc No.[id number]:09/03/2024 EGD and COL/MAC Patient:?CARLO LI I Provider:?Bogdan Ruby MD :1950???Age:74 Y???Sex:Female D ate:09/03/2024 Address:[address] [place], [place] [phone] Pcp:Glenys Looney MD Subjective: * Chief Complaints: * ???1. abnormal UGI series,sc reestephen. * Medical History:? Objective: * Vitals:? Assessment: * Assessment: 1.?Colon cancer screening - Z12.11 (Primary)???2.?Gastro-esophageal reflux disease without esophagitis - K21.9??? Plan: * Treatment: * Procedure Codes:?98610 DIAGN OSTIC COLONOSCOPY, 0529F INTRVL 3+YRS PTS CLNSCP DOCD, 0528F RCMND FLW-UP 10 YRS DOCD, 51125 UPPER GI ENDOSCOPY, BIOPSY * * The named appointment provid er may or may not be the originator of this progress note, and it is not deemed complete until electronically signed by the appointment provider. Sign off status: Pending * Provider:?Bogdan Ruby MD Date:?1 11/03/2023 Generated for Mari otero/Krishna/eTransmitting on:?01/13/2025 03:25 PM EDT
--- OUTSIDE RECORDS SUMMARY | 2025-01-13 15:25 | XMS_ITS ---
Author Organization [facility] Address [address] [place] [address] Care Team Providers Care Lieutenant Fire Fighter Name Role Phone Aure WONG, Glenys Primary Care Provider Tabatha Ruby Jr, Bogdan Unavailable [phone] Allergies Allergen (clinical drug ingredient) Drug/Non Drug [...] Problem Status W/U Status Risk Notes Problem 869765580 Abnormal finding s on diagnostic imaging of other parts of digestive tract (R93.3) Active confirmed Problem 207347567 Colon cancer screening (Z12.11) Active confirmed Problem 765630034 Gastroesophageal reflux disease without esophagitis (K21.9) Active confirmed Vital Signs Temperature 97.1 degrees Fahrenheit 07/22/20 24 Blood pressure systolic 000 mm Hg 07/22/20 24 Blood pressure diastolic 00 mm Hg 024 Height 63.25 in 07/22/2024 Weight 112 lb 6 oz lbs 07/22/2024 BMI 19.75 kg/m2 07/22/2024 Encounters Encounter Location Date Provider Diagnosis [facility] [address] [place] [address] 07/22/2024 Bogdan Ruyb Jr Abnormal findings on diagnostic imaging of [...] LI, CARLO IDOB: 2 (74 yo F)Acc No.[id number]:07/22/2024 Progress Notes Patient:?CARLO LI I Provider:?Bogdan Ruby MD :1950???Age:74 Y???Sex:Female D ate:07/22/2024 Address:[address] [place] [address] Pcp:Glenys Looney MD Subjective: * Chief Complaints: [...] 1, Interpretation: Negative.?Miscellaneous:?Marital status: . 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 * Medications:?Taking Vitafusi on 0.18-32.5 MG Tablet [...] Ruby MD Date:?0 07/22/2024 Generated for Mari otero/Krishna/Jazzy on:?01/13/2025 03:25 PM EDT History and Physical Notes * HPI (History [...]
--- OUTSIDE RECORDS SUMMARY | 2025-01-13 15:26 | XMS_ITS ---
Author Organization [facility] Address [address] [place] [address] Care Team Providers Care Felt Tipping Machine Tender Name Role Phone Aure WONG, Glenys Primary Care Provider Tabatha Ruby Jr, Bogdan Tapia [phone] REASON FOR VISIT pathology/ waiting on pt call back Encounters Encounter Location Date Provider Diagnosis [facility] [address] [place] [address] 09/12/2024 Bogdan Ruby Jr Plan Of Treatment No Information Progress Notes * CARLO LI IDOB: 2 (74 yo F)Acc No.[id number]:09/12/2024 Patient:?CARLO LI I :1950???Age:74 Y???Sex:Female Address:[address] [place] [address] * true * Date:? Generated for Mari otero/Krishna/eTransmitting on:?01/13/2025 03:25 PM EDT
--- OUTSIDE RECORDS SUMMARY | 2025-01-13 15:26 | XMS_ITS | Patient Health Record ---
Author Organization [facility] Address [address] [place] [address] Care Team Providers Care Compliance Vice President Name Role Phone Aure WONG, Glenys Primary Care Provider Bogdan Mcfadden Jr Allergies Allergen (clinical drug ingredient) Drug/Non Drug Allergy documented on EMR Reaction Allergy Type Onset Date Status indomethacin Indocin Unknown Drug Allergy Acti ve Codeine Phosphate Unknown Drug Allergy Active Bactrim Unknown Drug Allergy Active Results Component Value Reference Range Notes Pathology Reviewed date:09/12/2024 09:21:41 AM Interpretation: Performing Lab:[facility], [address] [place] [phone] Notes/Report: Name: Carlo Li I Age/Sex: 74/F : 1950 Unit#: [id number] Attend Dr: Bogdan Ruby MD Re09/03/24 Status : [facility] Location: [facility] Disch: SPEC : [id number] RECD : 09/03/24 STATUS: WHITLEY MISHRA NUM: [id number] BETTE: 09/03/24-[address]: Bogdan Ruby MD [...] Li,Carlo I Age/Sex: 74/F : 1950 Unit#: [id number] Attend Dr: Bogdan Ruby MD Re09/03/24 [place] [facility] [place] [facility] Disch: SPEC : [id number] RECD : 09/03/24 STATUS: WHITLEY MISHRA NUM: [id number] BETTE: 09/03/24-[address]: Bogdan Ruby MD ENTERED: 09/03/24- 33 SP TYPE: Surgical OTHR DR: Glenys Looney MD ORDERED: HE Stain/6, Gross Micro L4/2, IHC, Special st. 2/2, H. pylori, AB/PAS/2 Copies To: Bogdan Ruby MD [address] [place], [place] [phone] Glenys Looney MD [facility] Primary Care[address] [id number] Signed (si gnature on file) Mani Ospina [...] Problem Status W/U Status Risk Notes Problem 925785229 Colon cancer screening (Z12.11) Active confirmed Problem Gastro-esophage al reflux disease without esophagitis (995059958) Gastro-esophageal reflux disease without esophagitis (K21.9) Active confirmed Problem 202105570 Abnormal finding s on diagnostic imaging of other parts of digestive tract (R93.3) Active confirmed Problem 418363010 Gastroesophageal reflux disease without esophagitis (K21.9) Active confirmed Vital Signs Temperature 97.1 degrees Fahrenheit 07/22/2024 Blood pressure diastolic 00 mm Hg 07/22/2024 Height 63.25 in 07/22/2024 Blood pressure systolic 000 mm Hg 07/22/2024 Weight 112 lb 6 oz lbs 07/22/2024 BMI 19.75 kg/m2 07/22/2024 Encounters Encounter Location Date Provider Diagnosis [facility] [place] [address] [place], [place] [phone] 09/03/2024 Bogdan Ruby Jr Colon cancer screening Z12.11 and Gastro-esophageal reflux disease without esophagitis K21.9 [facility] [address] [place] [address] 07/22/2024 Bogdan Ruby Jr Abnormal findings on diagnostic imaging of other parts of digestive tract R93.3 ; Colon cancer screening Z12.11 and Gastroesophageal reflux disease without esophagitis K21.9 [facility] [address] [place] [address] 09/12/2024 Bogdan Ruby Jr Assessments Encounter Date [...] MEDICARE OF [employer] [address] [place] [id number] [phone] [id number] CARLO LI Self - patient is the insured MEDEX ATTN CLAIMS [address] [place] [address] [id number] CARLO LI Self - patient is the insured Medical (General) History Medical History History ICD Code Colonoscopy 2013, negative, ten-year fol lowup 2015 DCIS right breast, lumpectomy hiatal hernia osteoporosis hypertension Gastroesophageal reflux disease Surgical History Surgery Date(Month/Year) appendectomy hemorrhoid banding lumpectomy, radiation
== END 2025-01-13 13:41 | disposition home or self-care (01) ==
LOC: HO.HKA 13:16
PROVIDERS: PCP Internal Medicine; Visit Provider Internal Medicine Hypertension Specialist
DX: I10 Essential (primary) hypertension (principal)
CPT/HCPCS: 99204

== ENCOUNTER → 2025-01-13 13:15 | Outpatient (BNVA) | payer MEDICARE, SELFPAY | PROVIDERS: PCP Internal Medicine; Visit Provider Internal Medicine Hypertension Specialist | DX: I10 Essential (primary) hypertension (principal) | CPT/HCPCS: 99202 ==

== ENCOUNTER 2025-01-17 08:25 | Outpatient (REF) | payer MEDICARE, SELFPAY ==
[2025-01-17 10:53] LABS: Cholesterol 212 mg/dL (<200); HDL Cholesterol 72 mg/dL (>40); LDL Cholesterol Calculated 130 mg/dL (<100); Triglycerides 50 mg/dL (<150); Vitamin D 25-OH Total 40.9 ng/mL (>30)
== END 2025-01-17 08:26 | disposition home or self-care (01) ==
LOC: HO.HMGCLDS 08:25
PROVIDERS: PCP Internal Medicine; Visit Provider Internal Medicine
DX: I10 Essential (primary) hypertension (principal); M81.0 Age-related osteoporosis without current pathological fracture; E78.5 Hyperlipidemia, unspecified
CPT/HCPCS: 36415; 80061; 82306

== ENCOUNTER → 2025-01-21 12:48 | Outpatient (BNV) | payer MEDICARE, SELFPAY | PROVIDERS: PCP Internal Medicine; Visit Provider Internal Medicine | DX: Z86.000 Personal history of in-situ neoplasm of breast (principal); Z12.31 Encounter for screening mammogram for malignant neoplasm of breast | CPT/HCPCS: 77049 ==

== ENCOUNTER 2025-01-21 13:13 | Outpatient (REF) | payer MEDICARE, SELFPAY ==
[2025-01-21] MEDS: gadobutroL 7.5 ML VIAL IVPUSH (14:43)
--- OUTSIDE RECORDS SUMMARY | 2025-01-21 16:06 | XMS_ITS ---
Author Organization [facility] Address [address] [place] [address] Care Team Providers Care Associate Professor Physician Name Role Phone Aure WONG, Glenys Primary Care Provider Bogdan Mcfadden Jr Unavailable [phone] Allergies Allergen (clinical drug ingredient) Drug/Non Drug Allergy documented on EMR Reaction Allergy Type Onset Date Status indomethacin Indocin Unknown Drug Allergy Acti ve Codeine Phosphate Unknown Drug Allergy Active sulfamethoxazole / trimethoprim Bactrim Unknown Drug Allergy Active REASON FOR [...] Problem Status W/U Status Risk Notes Problem 699464499 Abnormal finding s on diagnostic imaging of other parts of digestive tract (R93.3) Active confirmed Problem 457202730 Colon cancer screening (Z12.11) Active confirmed Problem 257165701 Gastroesophageal reflux disease without esophagitis (K21.9) Active confirmed Vital Signs Temperature 97.1 degrees Fahrenheit 07/22/20 24 Blood pressure systolic 000 mm Hg 07/22/20 24 Blood pressure diastolic 00 mm Hg 024 Height 63.25 in 07/22/2024 Weight 112 lb 6 oz lbs 07/22/2024 BMI 19.75 kg/m2 07/22/2024 Encounters Encounter Location Date Provider Diagnosis [facility] [address] [place] [address] 07/22/2024 Bogdan Ruby Jr Abnormal findings on [...] Follow Up: prn, Reason: Progress Notes * CARLO LI IDOB: 2 (74 yo F)Acc No.[id number]:07/22/2024 Progress Notes Patient:?CARLO LI I Provider:?Bogdan Ruby MD :1950???Age:74 Y???Sex:Female D ate:07/22/2024 Address:[address] [place], [place] [phone] Pcp:Glenys Looney MD Subjective: * Chief Complaints: [...] 1, Interpretation: Negative.?Miscellaneous:?Marital status: . 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 * Medications:?Taking Vitafusi on 0.18-32.5 MG Tablet [...] MD Date:?0 07/22/2024 Generated for Mari otero/Krishna/Raineritting on:?01/21/2025 04:06 PM EDT History and Physical Notes * [...]
--- OUTSIDE RECORDS SUMMARY | 2025-01-21 16:06 | XMS_ITS | Patient Health Record ---
Author Organization [facility] Address [address] [place] [address] Care Team Providers Care Science Interpreter Name Role Phone Aure WONG, Glenys Primary Care Provider Bogdan Mcfadden Jr Allergies Allergen (clinical drug ingredient) Drug/Non Drug Allergy documented on EMR Reaction Allergy Type Onset Date Status indomethacin Indocin Unknown Drug Allergy Acti ve Codeine Phosphate Unknown Drug Allergy Active sulfamethoxazole / trimethoprim Bactrim Unknown Drug Allergy Active Results Component Value Reference Range Notes Pathology Reviewed date:09/12/2024 09:21:41 AM Interpretation: Performing Lab:[facility], [address] [place] [phone] Notes/Report: Name: Carlo Li I Age/Sex: 74/F : 1950 Unit#: [id number] Attend Dr: Bogdan Ruby MD Re09/03/24 Status : [facility] [place] [place] Location: [facility] Disch: SPEC : [id number] RECD : 09/03/24 STATUS: WHITLEY MISHRA NUM: [id number] BETTE: 09/03/24-[address]: Bogdan Ruby MD ENTERED: 09/03/24- [...] colon screening Microscopic Description A, B. Microscopic s ections examined. No metaplastic changes are seen, supported [...] and B CONTINUED ON NEXT PAGE Name: Carlo Li I Age/Sex: 74/F : 1950 Unit#: [id number] Attend Dr: Bogdan Ruby MD Re09/03/24 Status : [facility] [place] [place] Location: [facility] Disch: SPEC : [id number] RECD : 09/03/24 STATUS: WHITLEY MISHRA NUM: [id number] BETTE: 09/03/24-[address]: Bogdan Ruby MD ENTERED: 09/03/24- 33 SP TYPE: Surgical OTHR DR: Glenys Looney MD ORDERED: HE Stain/6, Gross Micro L4/2, IHC, Special st. 2/2, H. pylori, AB/PAS/2 Copies To: Bogdan Ruby MD [address] [place] [address] [phone] Glenys Looney MD [facility] [address] [phone] Signed (si gnature on file) Mani Ospina [...] Problem Status W/U Status Risk Notes Problem 334861091 Colon cancer screening (Z12.11) Active confirmed Problem Gastro-esophage al reflux disease without esophagitis (461201469) Gastro-esophageal reflux disease without esophagitis (K21.9) Active confirmed Problem 018946070 Abnormal finding s on diagnostic imaging of other parts of digestive tract (R93.3) Active confirmed Problem 046887411 Gastroesophageal reflux disease without esophagitis (K21.9) Active confirmed Vital Signs Temperature 97.1 degrees Fahrenheit 07/22/2024 Blood pressure diastolic 00 mm Hg 07/22/2024 Height 63.25 in 07/22/2024 Blood pressure systolic 000 mm Hg 07/22/2024 Weight 112 lb 6 oz lbs 07/22/2024 BMI 19.75 kg/m2 07/22/2024 Encounters Encounter Location Date Provider Diagnosis [facility] Outpatient [address], [place] [phone] 09/03/2024 Bogdan Ruby Jr Colon cancer screening Z12.11 and Gastro-esophageal reflux disease without esophagitis K21.9 [facility] [address] [facility] [address] [place] [address] 07/22/2024 Bogdan Ruby Jr Abnormal findings on diagnostic imaging of other parts of digestive tract R93.3 ; Colon cancer screening Z12.11 and Gastroesophageal reflux disease without esophagitis K21.9 [facility] [address] [place] [address] 09/12/2024 Bogdan Ruby Jr Assessments Encounter Date [...] Start Date Coverage End Date MEDICARE OF [place] [address] LUCAS COTE [id number] [phone] [id number] CARLO LI Self - patient is the insured MED[employer] ATTN CLAIMS [address] [place] [address] [id number] CARLO LI Self - patient is the insured Medical (General) History Medical History History ICD Code Colonoscopy 2013, negative, ten-year fol lowup 2015 DCIS right breast, lumpectomy hiatal hernia osteoporosis hypertension Gastroesophageal reflux disease Surgical History Surgery Date(Month/Year) appendectomy hemorrhoid banding lumpectomy, radiation
--- OUTSIDE RECORDS SUMMARY | 2025-01-21 16:06 | XMS_ITS ---
Author Organization [facility] Address [address] [place] [phone] Care Team Providers Care Electrical Foreman Name Role Phone Aure WONG, Glenys Primary Care Provider Tabatha Ruby Jr, Bogdan Tapia REASON FOR VISIT pathology/ waiting on pt call back Encounters Encounter Location Date Provider Diagnosis [facility] [address] [place] [phone] 09/12/2024 Bogdan Ruby Jr Plan Of Treatment No Information Progress Notes * CARLO LI IDOB: 2 (74 yo F)Acc No.[id number]:09/12/2024 Patient:?CARLO LI I :1950???Age:74 Y???Sex:Female Address:[address] [place] [address] * true * Date:? Generated for Mari otero/Krishna/eTransmitting on:?01/21/2025 04:06 PM EDT
--- OUTSIDE RECORDS SUMMARY | 2025-01-21 16:06 | XMS_ITS ---
Author Organization [facility] Address [address] [place] [address] Care Team Providers Care Cigar Brander Name Role Phone Aure WONG, Glenys Primary Care Provider Bogdan Mcfadden Jr [phone] REASON FOR VISIT abnormal UGI series,screening Problems Problem Type SNOMED Code ICD Code Onset Dates Problem Status W/U Status Risk Notes Problem Gastro-esophagea l reflux disease without esophagitis (191693886) Gastro-esophage al reflux disease without esophagitis (K21.9) Active confirmed Encounters Encounter Location Date Provider Diagnosis [facility] Outpatient [address] [place] [phone] 09/03/2024 Bogdan Ruby Jr Colon cancer screening Z12.11 and Gastro-esophageal reflux disease without esophagitis K21.9 Assessments Encounter Date Diagnosis (ICD Code) Assessment Notes Treatment Notes Treatment Clinical Notes Section Notes 09/03/2024 Colon cancer screening (ICD-10 - Z12.11) 09/03/2024 Gastro-esophagea l reflux disease without esophagitis (ICD-10 - K21.9) Plan Of Treatment No Information Progress Notes * CARLO LI IDOB: 2 (74 yo F)Acc No.[id number]:09/03/2024 EGD and COL/MAC Patient:?CARLO LI I Provider:?Bogdan Ruby MD :1950???Age:74 Y???Sex:Female D ate:09/03/2024 Address:[address] [place], [place] [phone] Pcp:Glenys Looney MD Subjective: * Chief Complaints: * ???1. abnormal UGI series,sc reestephen. * Medical History:? Objective: * Vitals:? Assessment: * Assessment: 1.?Colon cancer screening - Z12.11 (Primary)???2.?Gastro-esophageal reflux disease without esophagitis - K21.9??? Plan: * Treatment: * Procedure Codes:?84275 DIAGN OSTIC COLONOSCOPY, 0529F INTRVL 3+YRS PTS CLNSCP DOCD, 0528F RCMND FLW-UP 10 YRS DOCD, 33016 UPPER GI ENDOSCOPY, BIOPSY * * The named appointment provid er may or may not be the originator of this progress note, and it is not deemed complete until electronically signed by the appointment provider. Sign off status: Pending * Provider:?Bogdan Ruby MD Date:?1 11/03/2023 Generated for Mari otero/Krishna/eTransmitting on:?01/21/2025 04:06 PM EDT
== END 2025-01-21 13:14 | disposition home or self-care (01) ==
LOC: HO.MRI 13:13
PROVIDERS: PCP Internal Medicine; Visit Provider Internal Medicine Medical Oncology
DX: D05.11 Intraductal carcinoma in situ of right breast (principal)
CPT/HCPCS: 77049; A9585

== ENCOUNTER → 2025-02-19 09:35 | Outpatient (BNVA) | payer MEDICARE, SELFPAY | PROVIDERS: PCP Internal Medicine; Visit Provider Internal Medicine Hypertension Specialist ==

== ENCOUNTER 2025-02-20 09:34 | Outpatient (AMB) | payer MEDICARE, SELFPAY ==
[2025-02-20 09:38] VITALS: BP 148/86; PULSE 83; O2SAT 100; BMI 20.3
--- NOTE | 2025-02-20 09:38 | HO.NEPHOV ---
Vital Signs 02/20/25 09:38 Height 5 ft 2 in Weight 111 lb BMI 20.3 BP 148/86 H Blood Pressure Location Rt brachial Position Sitting Pulse 83 Pulse Source Pulse Oximeter Pulse Oximetry (%) 100 Oxygen Delivery Method Room Air Intake Visit Reasons: BPM Results/ Conf Allergies sulfamethoxazole [From BACTRIM] Allergy (Severe, Verified 02/20/25 09:40) blisters/photosensitivity trimethoprim [From BACTRIM] Allergy (Severe, Verified 02/20/25 09:40) blisters/photosensitivity codeine [CODEINE] Allergy (Intermediate, Verified 02/20/25 09:40) Nausea and Vomiting losartan Allergy (Unknown, Verified 02/20/25 09:40) Swelling indomethacin [From Indocin] Allergy (Verified 02/20/25 09:40) Hives Medication List - Last Reconciled 02/20/25 by Dada Gonzalez MD amlodipine 5 mg PO DAILY calcium carbonate-vitamin D3 500 mg-10 mcg (400 unit) (Calcium 500 + D) 500 tabs PO DAILY MDD 500 famotidine 40 mg PO BEDTIME lactobacillus combination no.4 (Probiotic) 3,000 mmu cells PO DAILY metoprolol succinate ER 100 mg PO DAILY HPI Comments Details: 75-year-old woman with a history of hypertension and possible superimposed white coat hypertension has been referred for evaluation hypertension. She is currently on metoprolol 100 mg a day. About 5 days ago amlodipine 5 mg has been added. Prior to that she was on losartan but this was discontinued because of a rash. She was on lisinopril several years ago which caused palpitation therefore that was discontinued as well. She has been monitoring her blood pressure at home. Usually systolic blood pressure is in the 130s to 140s. In the doctor's office setting blood pressure is always in the 170/80s. 02/20/25 Underwent ABPM Results reveiwed with Sharon Has been on Amlodipine 5 mg QD for a month Initial SBP was 148 Repeat BP ,by me, was 160/90 PFSH Medical History Labile hypertension Dyslipidemia Hx of radiation therapy GERD (gastroesophageal reflux disease) DCIS (ductal carcinoma in situ) of breast Hiatal hernia Osteoporosis Family history of cancer Hypertension Breast cancer Surgical History Hx of hemorrhoidectomy H/O colonoscopy History of appendectomy History of lumpectomy Family History Sister Pancreatic cancer Maternal Aunt Breast cancer Pancreatic cancer Colon cancer Paternal Aunt Breast cancer Social History Household Members: Spouse Housing: House Are you a primary personal care service provider to a significant other at home: No Do you presently have visiting nurse or other home services: No Alcohol intake: current Alcohol intake frequency: holidays/special occasions only Patient Tobacco Use Status: Never used Tobacco e-Cigarette/Vaping Use: Never Used service: No 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al status: retired 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 Lungs entry equal no rales. Heart S1-S2 heard no gallop or rub. Abdomen soft nontender. Neuro alert awake oriented. No asterixis. Extremities no edema. Office Procedures 24 B/P Monitor Interpretation Details: Daytime ave: 146/90 Night itme average 124/70 24 hr average 142 /87 ABPM stage 1 HTN with dipping White Coat Effect PRESENT CPT: 31798 24 Hour Blood Pressure Monitor Reading Procedure code (CPT) selection complete Results Reviewed Nephrology Results: Hgb 12.3 g/dl (12.0-16.0) 01/14/25 WBC 9.3 X10*3/uL (4.8-10.8) 01/14/25 Plt Count 206 X10*3/uL (160-400) 01/14/25 Sodium 140 mmol/L (135-145) 01/14/25 Potassium 4.2 mmol/L (3.3-5.1) 01/14/25 Chloride 106 mmol/L (96-108) 01/14/25 Carbon Dioxide 26 mmol/L (22-29) 01/14/25 BUN 12 mg/dL (9-16) 01/14/25 Creatinine 0.91 mg/dL (0.5-1.4) 01/14/25 Calcium 9.0 mg/dL (8.4-10.2) 01/14/25 Assessment & Plan Assessment & Plan (1) Hypertension: Code(s): I10 - Essential (primary) hypertension Category: Medical Qualifiers: Hypertension type: primary hypertension Qualified Code(s): I10 - Essential (primary) hypertension Plan 75-year-old woman with a history of longstanding hypertension. ABPM shows stage 1 HTN with Dipping She has superimposed white coat effect. Plan Increase AMLODIPINE to 10 mg QD In the meantime encouraged her to stay on a low-sodium diet. Keep MEtoprolol at current dose ( HR 50- 60s) Unable to Use Lisinopril or Losartan. Orders: Orders AMB 24 HR B/P Monitor INTERPRETATION Today I10 - Essential (primary) hypertension Medications: Changed From amlodipine 5 mg PO DAILY 30 tabs 5RF To amlodipine 10 mg PO DAILY 90 tabs 3RF Coding Level of Care Code Est Pt Level 4 (58154) Diagnoses Primary hypertension I10 Hypertension type: primary hypertension CPT Codes - CPT: 58854 24 Hour Blood Pressure Monitor Reading ([id number])
== END 2025-02-20 10:16 | disposition home or self-care (01) ==
LOC: HO.HKA 09:34
PROVIDERS: PCP Internal Medicine; Visit Provider Internal Medicine Hypertension Specialist
DX: I10 Essential (primary) hypertension (principal)
CPT/HCPCS: 93790; 99214

== ENCOUNTER → 2025-02-20 09:34 | Outpatient (BNVA) | payer MEDICARE, SELFPAY | PROVIDERS: PCP Internal Medicine; Visit Provider Internal Medicine Hypertension Specialist | DX: I10 Essential (primary) hypertension (principal) | CPT/HCPCS: 99212 ==

== ENCOUNTER 2025-03-04 09:20 | Outpatient (AMB) | payer MEDICARE, SELFPAY ==
[2025-03-04 10:06] VITALS: BP 136/80; PULSE 64; RESP 16; TEMP 36.3; O2SAT 99; BMI 20.5
--- NOTE | 2025-03-04 10:06 | A.OFFPC_ITS ---
Vital Signs 03/04/25 10:06 Height 5 ft 2 in Weight 112 lb BMI 20.5 BP 136/80 Blood Pressure Location Rt brachial Position Sitting Respiration 16 Pulse 64 Pulse Source Pulse Oximeter Temp 97.4 F Temp Source Oral Pulse Oximetry (%) 99 Oxygen Delivery Method Room Air Intake Visit Reasons: 2m follow up Intake Note: Pt is here today for her 2mo. f/u Allergies sulfamethoxazole [From BACTRIM] Allergy (Severe, Verified 03/15/25 11:12) blisters/photosensitivity trimethoprim [From BACTRIM] Allergy (Severe, Verified 03/15/25 11:12) blisters/photosensitivity codeine [CODEINE] Allergy (Intermediate, Verified 03/15/25 11:12) Nausea and Vomiting losartan Allergy (Unknown, Verified 03/15/25 11:12) Swelling indomethacin [From Indocin] Allergy (Verified 03/15/25 11:12) Hives Medication List - Last Reconciled 03/15/25 by Glenys Looney MD amlodipine 10 mg PO DAILY calcium carbonate-vitamin D3 500 mg-10 mcg (400 unit) (Calcium 500 + D) 500 tabs PO DAILY MDD 500 famotidine 40 mg PO BEDTIME lactobacillus combination no.4 (Probiotic) 3,000 mmu cells PO DAILY metoprolol succinate ER 100 mg PO DAILY Tobacco use date assessed: 03/04/25 Fall risk assessment: No Falls in past year Last assessed Fall Risk: 03/04/25 Dental Screening Dental Screen Date: 03/04/25 Did you have a dental visit in the last 12 months?: Yes Did you have a dental problem in the last 6 months where you did not have access to dental care?: Yes Was dental information given to patient?: Patient has dentist HPI 2m follow up HPI Details 75 year-old lady with hypertension, as w ell as white coat hypertension and Dyslipidemia, here today for follow-up. Patient is currently on metoprolol succinate 100 mg once a day and amlodipine 10 mg daily daily , has been feeling well, with blood pressure readings within acceptable limits. Has been compliant with healthy eating habits and stays active, exercises regularly, last lipid levels checked December 2024 showed improvement in her LDL c holesterol, as compared to last check. [facility] Medical History (Updated 03/04/25 @ 10:48 by Glenys Looney MD) History of ductal carcinoma in situ (DCIS) of right breast White coat syndrome with hypertension Dyslipidemia Hx of radiation therapy GERD (gastroesophageal reflux disease) Hiatal hernia Osteoporosis Family history of cancer Breast cancer Surgical History Hx of hemorrhoidectomy H/O colonoscopy History of appendectomy History of lumpectomy Family History Sister Pancreatic cancer Maternal Aunt Breast cancer Pancreatic cancer Colon cancer Paternal Aunt Breast cancer Social History Household Members: Spouse Housing: House Are you a primary animal care technician to a significant other at home: No Do you presently have visiting nurse or other home services: No Alcohol intake: current Alcohol intake frequency: holidays/special occasions only Patient Tobacco Use Status: Never used Tobacco e-Cigarette/Vaping Use: Never Used service: No 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al status: retired 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 Depression Screening Interpretation: Negative Depression Screening Done: Yes Source: Developed by Drs. Yuri Ruiz, Cindi Mitchell, Camacho North and colleagues, with an educational jass from [employer]. Thrive Questionnaire Date Thrive assessed: 12/27/24 I am a: Patient What is your living situation today?: I have a steady place to live Within the past 12 months, did the food you bought not last and you didn't have the money to get more?: Never true Within the past 12 months, did you worry whether your food would run out before you got money to buy more?: Never true Do you have trouble paying for medicines?: No Do you have trouble getting transportation to medical appointments?: No Do you have trouble paying your heating and electricity bill?: No Do you have trouble taking care of your child, family member or friend?: No Do you have trouble with day-to-day activities such as bathing, preparing meals, shopping, managing finances, etc.?: No Are you currently unemployed and looking for a job?: No Are you interested in more education?: No Please select the resources that you would like help with: None Currently or been in a relationship where the following occur: No concerns repo rted THRIVE Score: 0 AUDIT C Alcohol Use Questionnaire (AUDIT-C) 1. How often do you have a drink containing alcohol?: Monthly or less 2. How many drinks containing alcohol do you have on a typical day when you are drinking?: 1 or 2 3. How often do you have six or more drinks on one occasion?: Never Total Score: 1 JADE-7 AMB Questionnaire JADE-7 Date JADE - 7 assessed: 01/02/25 Source: Developed by Drs. Yuri Ruiz, Cindi Mitchell, Camacho [place] and colleagues, with an educational jass from [employer]. Review of Systems Const Reports no additional complaints Eyes Denies change in vision ENT Reports no additional complaints Card Denies chest pain Resp Denies cough and Denies hemoptysis GI Denies abdominal pain, Denies diarrhea and Denies nausea Reports no additional complaints Musc Denies back pain Neuro Denies focal weakness Psych Reports no additional complaints Endo Reports no additional complaints Kyle/Lymph Reports no additional complaints Physical exam (Primary Care) Vital Signs: Last Vital Signs Temp 97.4 F 03/04/25 10:06 Pulse 64 03/04/25 10:06 Resp 16 03/04/25 10:06 BP 136/80 03/04/25 10:06 Pulse Ox 99 03/04/25 10:06 Oxygen Delivery Method Room Air 03/04/25 10:06 BMI result Body Mass Index 20.5 Tobacco/Smoking Status: Tobacco use Status Tobacco use date assessed 03/04/25 03/04/25 10:16 Patient Tobacco Use Status Never used Tobacco 03/04/25 10:07 e-Cigarette/Vaping Use Never Used 03/04/25 10:07 Depression Screening Interpretation: Negative Thrive Assessment: Date of Thrive Assessment Date Thrive assessed 12/27/24 03/04/25 10:07 Currently or been in a relationship where the following occur: No concerns reported Const General: no acute distress and alert Nutritional Appearance: average body habitus Orientation/consciousness: patient oriented x3 HENMT Mouth: Normal oral and palatal mucosa present and moist mucous membranes Neck Neck: Yes full ROM, Yes no lymphadenopathy and Yes supple Resp Auscultation: clear to auscultation bilaterally Cardio Other: S1-S2 present regular rate and rhythm GI Other: Normal bowel sounds, soft, nontender with no mass palpated Neuro General: patient oriented x3, gait normal, moves all extremities, Normal light touch and pain sensation and no focal motor deficits Extrem General: Yes full ROM, Yes no joint enlargement, Yes no clubbing, cyanosis or edema and Yes normal gait Results Reviewed Results Reviewed: Name: Krista Borden I Age/Sex: 74/F : 1950 Unit#: [id number] Attend Dr: Liset Quiroz MD Re01/14/25 Status: REG RCR Location: [facility] Disch: SPEC : [id number] BETTE: 01/14/25 STATUS: COMP REQ : [id number] RECD: 01/14/[address]: Liset Quiroz MD COMP: 01/14/25 ENTERED: 01/14/[address]: Glenys Looney MD ORDERED: CBC Auto Diff Test Result Flag Reference WBC 9.3 4.8-10.8 X10*3/uL RBC 4.13 L 4.20-5.50 X1 0*6/uL HGB 12.3 12.0-16.0 g/dl HCT 36.0 L 37.0-47.0 % MCV 87.2 80.0-98.0 fL MCH 29.8 27.0-33.0 pg MCHC 34.2 31.0-35.0 g/dl RDW 12.6 11.0-16.0 % PLT 206 160-400 X10*3/uL MPV 10.2 9.4-12.3 fL Neut Pct Auto 76.4 H 45-73 % ImGran Pct Auto 0.3 0.0-0.4 % Lymp Pct Auto 15.7 L 20-40 % [place] Pct Auto 6.5 2-11 % Eos Pct Auto 0.9 0-4 % Baso Pct Auto 0.2 0-2 % NRBC Pct Auto 0.0 0.0-0.2 /100WBC ANC Neut Abs # 7.1 2.0-8.3 x10*3/uL ImGran Abs Auto 0.03 0.00-0.03 X10*3/uL Lymph Abs Auto 1.5 1.2-4.9 X10*3/uL [place] Abs Auto 0.6 0.1-1.2 X10*3/uL Eos Abs Auto 0.1 0.0-0.4 X10*3/uL Baso Abs Auto 0.0 0.0-0.2 X10*3/uL NRBC Abs Auto 0.000 0.0-0.012 X10*3/uL Name: Krista Borden I Age/Sex: 74/F : 1950 Unit#: [id number] Attend Dr: Liset Quiroz MD Re01/14/25 Status: REG [facility] Location: [facility] isch: SPEC : [id number] BETTE: 01/14/25 STATUS: COMP REQ : [id number] RECD: 01/14/[address]: Liset Quiroz MD COMP: 01/14/25 ENTERED: 01/14/[address] [facility] [address]: Glenys Looney MD ORDERED: CMP Test Result Flag Reference Sodium 140 135-145 mmol/L Potassium 4.2 3.3-5.1 mmol/L CL 106 96-108 mmol/L CO2 26 22-29 mmol/L Gap 12 12-20 BUN 12 9-16 mg/dL Creat 0.91 0.5-1.4 mg/dL Estimated CrCl 44.1 Provided height and weight: 157.48 cm, 50.9 kg. eGFR (calculated from the MDRD study equation) and eCrCl (calculated from the Cockcroft-Gault equation) are based on different parameters and may not yield comparable results. If eCrCl result is absurd, please check patient's height/weight. eGFR > 60 Chronic Kidney Disease: Estimated GFR < 60 mL/min/1.73m2 Severe Kidney Disease: Estimated GFR < 15 mL/min/1.73m2 Glucose, Random 98 60-115 mg/dL CA 9.0 # 8.4-10.2 mg/dL Total Bili 1.0 0.0-1.0 mg/dL AST (GOT) 22 5-31 U/L ALT (GPT) 14 0-31 U/L Protein, Total 7.2 6.5-8.0 g/dL Alb 4.3 3.5-5.0 g/dL Alk Phos 47 39-117 U/L Coding Level of Care Code Est Pt Level 4 (72451) Diagnoses White coat syndrome with hypertension I10 Dyslipidemia E78.5 Assessment & Plan Assessment & Plan (1) White coat syndrome with hypertension: Code(s): I10 - Essential (primary) hypertension Category: Medical Plan: Blood pressure within acceptable limits, continued on amlodipine and metoprolol succinate ER at the same dose. (2) Dyslipidemia: Code(s): E78.5 - Hyperlipidemia, unspecified Category: Medical Plan: Continue with adherence to healthy eating habits and regular exercise.
--- OUTSIDE RECORDS SUMMARY | 2025-03-04 10:12 | XMS_ITS ---
Author Organization [facility] Address [address] [place] [address] Care Team Providers Care Terminal Makeup Operator Name Role Phone Aure WONG, Glenys Primary Care Provider Bogdan Mcfadden Jr Unavailable [phone] Allergies Allergen (clinical drug ingredient) Drug/Non Drug [...] Problem Status W/U Status Risk Notes Problem [id number] Abnormal finding s on diagnostic imaging of other parts of digestive tract (R93.3) Active confirmed Problem 079302772 Colon cancer screening (Z12.11) Active confirmed Problem 299875768 Gastroesophageal reflux disease without esophagitis (K21.9) Active confirmed Vital Signs Temperature 97.1 degrees Fahrenheit 07/22/20 24 Blood pressure systolic 000 mm Hg 07/22/20 24 Blood pressure diastolic 00 mm Hg 024 Height 63.25 in 07/22/2024 Weight 112 lb 6 oz lbs 07/22/2024 BMI 19.75 kg/m2 07/22/2024 Encounters Encounter Location Date Provider Diagnosis [facility] [address] [place] [address] 07/22/2024 Bogdan Ruby Jr Abnormal findings on [...] CARLO LI IDOB: 2 (74 yo F)Acc No.[id number]:07/22/2024 Progress Notes Patient:?CARLO LI I Provider:?Bogdan Ruby MD :1950???Age:74 Y???Sex:Female D ate:07/22/2024 Address:[address] [place], [place] [id number] Pcp:Glenys Looney MD Subjective: * Chief Complaints: [...] Interpretation: Negative.?Miscellaneous:?Marital status: . 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 * Medications:?Taking Vitafusi on 0.18-32.5 MG Tablet [...] MD Date:?0 07/22/2024 Generated for Mari otero/Krishna/Raineritting on:?03/04/2025 10:12 AM EDT History and Physical Notes * HPI [...]
--- OUTSIDE RECORDS SUMMARY | 2025-03-04 10:12 | XMS_ITS | Patient Health Record ---
Author Organization [facility] Address [address] [place] [address] Care Team Providers Care Rv Mechanic Name Role Phone Aure WONG, Glenys [...] Pathology Reviewed date:09/12/2024 09:21:41 AM Interpretation: Performing Lab:[facility], [address] [place] [id number] Notes/Report: Name: Carlo Li I Age/Sex: 74/F : 1950 Unit#: [id number] Attend Dr: Bogdan Ruby MD Re09/03/24 Status : [facility] Location: [facility] Disch: SPEC : [id number] RECD : 09/03/24 STATUS: WHITLEY MISHRA NUM: [id number] BETTE: 09/03/24-[address]: Bogdan Ruby MD [...] Li I Age/Sex: 74/F : 1950 Unit#: [id number] Attend Dr: Bogdan Ruby MD Re09/03/24 Status : [facility] Location: [facility] Disch: SPEC : [id number] RECD : 09/03/24 STATUS: WHITLEY MISHRA NUM: [id number] BETTE: 09/03/24-[address]: Bogdan Ruby MD ENTERED: 09/03/24- 33 SP TYPE: Surgical OTHR DR: Glenys Looney MD ORDERED: HE Stain/6, Gross Micro L4/2, IHC, Special st. 2/2, H. pylori, AB/PAS/2 Copies To: Bogdan Ruby MD [address] [place] [address] [phone] Glenys Looney MD [facility] [address] [phone] Signed (si gnature on file) Mani Ospina [...] Problem Status W/U Status Risk Notes Problem 439244592 Colon cancer screening (Z12.11) Active confirmed Problem Gastro-esophage al reflux disease without esophagitis (384806276) Gastro-esophageal reflux disease without esophagitis (K21.9) Active confirmed Problem 858768488 Abnormal finding s on diagnostic imaging of other parts of digestive tract (R93.3) Active confirmed Problem 671379700 Gastroesophageal reflux disease without esophagitis (K21.9) Active confirmed Vital Signs Temperature 97.1 degrees Fahrenheit 07/22/2024 Blood pressure diastolic 00 mm Hg 07/22/2024 Height 63.25 in 07/22/2024 Blood pressure systolic 000 mm Hg 07/22/2024 Weight 112 lb 6 oz lbs 07/22/2024 BMI 19.75 kg/m2 07/22/2024 Encounters Encounter Location Date Provider Diagnosis [facility] [address] [phone] 09/03/2024 Bogdan Ruby Jr Colon cancer screening Z12.11 and Gastro-esophageal reflux disease without esophagitis K21.9 [facility] [address] [facility] [address] [place] [address] 07/22/2024 Bogdan Ruby Jr Abnormal findings on diagnostic imaging of other parts of digestive tract R93.3 ; Colon cancer screening Z12.11 and Gastroesophageal reflux disease without esophagitis K21.9 [facility] [address] [place] [address] 09/12/2024 Bogdan Ruby Jr Assessments Encounter Date [...] OF [place] [address] [place] [id number] [phone] [id number] CARLO LI Self - patient is the insured [employer] CLAIM[employer] [address] [place] [address] [id number] CARLO LI Self - patient is the insured Medical (General) History Medical History History ICD Code Colonoscopy 2013, negative, ten-year fol lowup 2015 DCIS right breast, lumpectomy hiatal hernia osteoporosis hypertension Gastroesophageal reflux disease Surgical History Surgery Date(Month/Year) appendectomy hemorrhoid banding lumpectomy, radiation
--- OUTSIDE RECORDS SUMMARY | 2025-03-04 10:12 | XMS_ITS ---
Author Organization [facility] Address [address] [place] [address] Care Team Providers Care Tax Manager Public Name Role Phone Aure WONG, Glenys Primary Care Provider Bogdan Mcfadden Jr [phone] REASON FOR VISIT abnormal UGI series,screening Problems Problem Type SNOMED Code ICD Code Onset Dates Problem Status W/U Status Risk Notes Problem Gastro-esophagea l reflux disease without esophagitis (549203752) Gastro-esophage al reflux disease without esophagitis (K21.9) Active confirmed Encounters Encounter Location Date Provider Diagnosis [facility] [place] [address] [place] [phone] 09/03/2024 Bogdan Ruby Jr Colon cancer screening Z12.11 and Gastro-esophageal reflux disease without esophagitis K21.9 Assessments Encounter Date Diagnosis (ICD Code) Assessment Notes Treatment Notes Treatment Clinical Notes Section Notes 09/03/2024 Colon cancer screening (ICD-10 - Z12.11) 09/03/2024 Gastro-esophagea l reflux disease without esophagitis (ICD-10 - K21.9) Plan Of Treatment No Information Progress Notes * CARLO LI IDOB: 2 (75 yo F)Acc No.[id number]:09/03/2024 EGD and COL/MAC Patient:?CARLO LI I Provider:?Bogdan Ruby MD :1950???Age:74 Y???Sex:Female D ate:09/03/2024 Address:[address] [place], [place] [id number] Pcp:Glenys Looney MD Subjective: * Chief Complaints: * ???1. abnormal UGI series,sc reestephen. * Medical History:? Objective: * Vitals:? Assessment: * Assessment: 1.?Colon cancer screening - Z12.11 (Primary)???2.?Gastro-esophageal reflux disease without esophagitis - K21.9??? Plan: * Treatment: * Procedure Codes:?00350 DIAGN OSTIC COLONOSCOPY, 0529F INTRVL 3+YRS PTS CLNSCP DOCD, 0528F RCMND FLW-UP 10 YRS DOCD, 62878 UPPER GI ENDOSCOPY, BIOPSY * * The named appointment provid er may or may not be the originator of this progress note, and it is not deemed complete until electronically signed by the appointment provider. Sign off status: Pending * Provider:?Bogdan Ruby MD Date:?1 11/03/2023 Generated for Mari otero/Krishna/eTransmitting on:?03/04/2025 10:12 AM EDT
--- OUTSIDE RECORDS SUMMARY | 2025-03-04 10:13 | XMS_ITS ---
Author Organization [facility] Address [address] [place] [address] Care Team Providers Care Neck Band Maker Name Role Phone Aure WONG, Glenys Primary Care Provider Tabatha Ruby Jr, Bogdan Tapia [phone] REASON FOR VISIT pathology/ waiting on pt call back Encounters Encounter Location Date Provider Diagnosis [facility] [address] [place] [address] 09/12/2024 Bogdan Ruby Jr Plan Of Treatment No Information Progress Notes * CARLO LI IDOB: 2 (74 yo F)Acc No.[id number]:09/12/2024 Patient:?CARLO LI I :1950???Age:74 Y???Sex:Female Address:[address] [place] [address] * true * Date:? Generated for Mari otero/Krishna/eTransmitting on:?03/04/2025 10:12 AM EDT
== END 2025-03-04 10:51 | disposition home or self-care (01) ==
LOC: HO.HMCC 09:21
PROVIDERS: PCP Internal Medicine; Visit Provider Internal Medicine
DX: I10 Essential (primary) hypertension (principal); E78.5 Hyperlipidemia, unspecified

== ENCOUNTER → 2025-03-04 09:20 | Outpatient (BNVA) | payer MEDICARE, SELFPAY | PROVIDERS: PCP Internal Medicine; Visit Provider Internal Medicine | DX: I10 Essential (primary) hypertension (principal); E78.5 Hyperlipidemia, unspecified | CPT/HCPCS: 99212 ==

== ENCOUNTER 2025-04-10 11:31 | Outpatient (AMB) | payer MEDICARE, SELFPAY ==
[2025-04-10 11:37] VITALS: BP 182/88; PULSE 76; O2SAT 100; BMI 20.3
--- NOTE | 2025-04-10 11:37 | HO.NEPHOV_ITS ---
Vital Signs 04/10/25 11:37 Height 5 ft 2 in Weight 111 lb BMI 20.3 BP 182/88 H Blood Pressure Location Rt brachial Position Sitting Pulse 76 Pulse Source Pulse Oximeter Pulse Oximetry (%) 100 Oxygen Delivery Method Room Air Intake Visit Reasons: 8wk follow-up/Conf Stove Installer Required: No Accompanied by: Self / Same As Patient Allergies sulfamethoxazole [From BACTRIM] Allergy (Severe, Verified 04/10/25 11:38) blisters/photosensitivity trimethoprim [From BACTRIM] Allergy (Severe, Verified 04/10/25 11:38) blisters/photosensitivity codeine [CODEINE] Allergy (Intermediate, Verified 04/10/25 11:38) Nausea and Vomiting losartan Allergy (Unknown, Verified 04/10/25 11:38) Swelling indomethacin [From Indocin] Allergy (Verified 04/10/25 11:38) Hives Medication List - Last Reconciled 04/10/25 by Dada Gonzalez MD amlodipine 5 mg PO DAILY calcium carbonate-vitamin D3 500 mg-10 mcg (400 unit) (Calcium 500 + D) 500 tabs PO DAILY MDD 500 famotidine 40 mg PO BEDTIME lactobacillus combination no.4 (Probiotic) 3,000 mmu cells PO DAILY metoprolol succinate ER 100 mg PO DAILY HPI Comments Details: 75-year-old woman with a history of hypertension and possible superimposed white coat hypertension has been referred for evaluation hypertension. She is currently on metoprolol 100 mg a day. About 5 days ago amlodipine 5 mg has been added. Prior to that she was on losartan but this was discontinued because of a rash. She was on lisinopril several years ago which caused palpitation therefore that was discontinued as well. She has been monitoring her blood pressure at home. Usually systolic blood pressure is in the 130s to 140s. In the doctor's office setting blood pressure is always in the 170/80s. 02/20/25 Underwent ABPM Results reveiwed with Sharon Has been on Amlodipine 5 mg QD for a month Initial SBP was 148 Repeat BP ,by me, was 160/90 04/10/25 75-year-old female presenting with issues related to blood pressure management. She experienced leg and foot edema while on a higher dose of amlodipine (10 mg) for her essential hypertension. To mitigate symptoms, she self-adjusted her dose to 5 mg after a specific low blood pressure reading and adverse reaction. With the adjusted dose to 5 mg, her blood pressure levels stabilized, generally remaining in the one-teens systolic range, and the severity of edema diminished significantly. The diastolic pressure readings have also improved, indicating effective blood pressure control. She has been consistently monitoring her blood pressure at home, confirming that the higher readings observed in the office are not financial service representative of her typical patterns. Overall, she has not reported any significant side effects such as dizziness or loss of balance, and her breathing remains unaffected. She will continue monitoring her blood pressure weekly at home to ensure maintenance of optimal levels. [facility] Medical History (Updated 03/04/25 @ 10:48 by Glenys Looney MD) History of ductal carcinoma in situ (DCIS) of right breast White coat syndrome with hypertension Dyslipidemia Hx of radiation therapy GERD (gastroesophageal reflux disease) Hiatal hernia Osteoporosis Family history of cancer Breast cancer Surgical History Hx of hemorrhoidectomy H/O colonoscopy History of appendectomy History of lumpectomy Family History Sister Pancreatic cancer Maternal Aunt Breast cancer Pancreatic cancer Colon cancer Paternal Aunt Breast cancer Social History Household Members: Spouse Housing: House Are you a primary health care administrator to a significant other at home: No Do you presently have visiting nurse or other home services: No Alcohol intake: current Alcohol intake frequency: holidays/special occasions only Patient Tobacco Use Status: Never used Tobacco e-Cigarette/Vaping Use: Never Used service: No 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al status: retired 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 Lungs entry equal no rales. Heart S1-S2 heard no gallop or rub. Abdomen soft nontender. Neuro alert awake oriented. No asterixis. Extremities no edema. Results Reviewed Nephrology Results: Hgb 12.3 g/dl (12.0-16.0) 01/14/25 WBC 9.3 X10*3/uL (4.8-10.8) 01/14/25 Plt Count 206 X10*3/uL (160-400) 01/14/25 Sodium 140 mmol/L (135-145) 01/14/25 Potassium 4.2 mmol/L (3.3-5.1) 01/14/25 Chloride 106 mmol/L (96-108) 01/14/25 Carbon Dioxide 26 mmol/L (22-29) 01/14/25 BUN 12 mg/dL (9-16) 01/14/25 Creatinine 0.91 mg/dL (0.5-1.4) 01/14/25 Calcium 9.0 mg/dL (8.4-10.2) 01/14/25 Assessment & Plan Assessment & Plan (1) Hypertension: Code(s): I10 - Essential (primary) hypertension Category: Medical Qualifiers: Hypertension type: primary hypertension Qualified Code(s): I10 - Essential (primary) hypertension (2) White coat syndrome with hypertension: Code(s): I10 - Essential (primary) hypertension Category: Medical Plan 75-year-old woman with a history of longstanding hypertension. ABPM shows stage 1 HTN with Dipping She has superimposed white coat effect. Plan KEep AMLODIPINE at 5 mg QD In the meantime encouraged her to stay on a low-sodium diet. Keep Metoprolol at current dose ( HR 50- 60s) Unable to Use Lisinopril or Losartan. Orders: Orders Basic Metabolic Panel 6 Months I10 - Essential (primary) hypertension Medications: New amlodipine 5 mg PO DAILY 90 tabs 3RF Coding Level of Care Code Est Pt Level 4 (57410) Diagnoses Primary hypertension I10 Hypertension type: primary hypertension White coat syndrome with hypertension I10
--- OUTSIDE RECORDS SUMMARY | 2025-04-10 13:43 | XMS_ITS ---
Author Organization [facility] Address [address] [place] [address] Care Team Providers Care Grease Maker Head Name Role Phone Aure WOGN, Glenys Primary Care Provider Bogdan Mcfadden Jr Unavailable [phone] Allergies Allergen (clinical drug ingredient) Drug/Non [...] Problem Status W/U Status Risk Notes Problem 226388799 Abnormal finding s on diagnostic imaging of other parts of digestive tract (R93.3) Active confirmed Problem 063114269 Colon cancer screening (Z12.11) Active confirmed Problem 166070999 Gastroesophageal reflux disease without esophagitis (K21.9) Active confirmed Vital Signs Temperature 97.1 degrees Fahrenheit 07/22/20 24 Blood pressure systolic 000 mm Hg 07/22/20 24 Blood pressure diastolic 00 mm Hg 024 Height 63.25 in 07/22/2024 Weight 112 lb 6 oz lbs 07/22/2024 BMI 19.75 kg/m2 07/22/2024 Encounters Encounter Location Date Provider Diagnosis [facility] [address] [place] [address] 07/22/2024 Bogdan Ruby Jr Abnormal findings on [...] CARLO LI IDOB: 2 (74 yo F)Acc No.[id number]:07/22/2024 Progress Notes Patient:?CARLO LI I Provider:?Bogdan Ruby MD :1950???Age:74 Y???Sex:Female D ate:07/22/2024 Address:[address] [place], [place] [phone] Pcp:Glenys Looney MD Subjective: * Chief Complaints: [...] 1, Interpretation: Negative.?Miscellaneous:?Marital status: . 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 * Medications:?Taking Vitafusi on 0.18-32.5 MG Tablet [...] MD Date:?0 07/22/2024 Generated for Mari otero/Krishna/Raineritting on:?04/10/2025 01:42 PM EDT History and Physical Notes * [...]
== END 2025-04-10 11:53 | disposition home or self-care (01) ==
LOC: HO.HKA 11:32
PROVIDERS: PCP Internal Medicine; Visit Provider Internal Medicine Hypertension Specialist
DX: I10 Essential (primary) hypertension (principal)
CPT/HCPCS: 99214

== ENCOUNTER → 2025-04-10 11:31 | Outpatient (BNVA) | payer MEDICARE, SELFPAY | PROVIDERS: PCP Internal Medicine; Visit Provider Internal Medicine Hypertension Specialist | DX: I10 Essential (primary) hypertension (principal) | CPT/HCPCS: 99212 ==

== ENCOUNTER 2025-05-27 13:38 | Outpatient (AMB) | payer MEDICARE, SELFPAY ==
--- OUTSIDE RECORDS SUMMARY | 2024-09-03 06:50 | XMS_ITS ---
Author Organization [facility] Address [address] [place] [phone] Care Team Providers Care Poiser Name Role Phone Aure WONG, Glenys Primary Care Provider Bogdan Mcfadden Jr REASON FOR VISIT abnormal UGI series,screening Problems Problem Type SNOMED Code ICD Code Onset Dates Problem Status W/U Status Risk Notes Problem Gastro-esophagea l reflux disease without esophagitis (273990756) Gastro-esophage al reflux disease without esophagitis (K21.9) Active confirmed Encounters Encounter Location Date Provider Diagnosis [facility] [place] [address] [place] [phone] 09/03/2024 Bgodan Ruby Jr Colon cancer screening Z12.11 and Gastro-esophageal reflux disease without esophagitis K21.9 Assessments Encounter Date Diagnosis (ICD Code) Assessment Notes Treatment Notes Treatment Clinical Notes Section Notes 09/03/2024 Colon cancer screening (ICD-10 - Z12.11) 09/03/2024 Gastro-esophagea l reflux disease without esophagitis (ICD-10 - K21.9) Plan Of Treatment No Information Progress Notes * CARLO LI IDOB: 2 (75 yo F)Acc No.[id number]:09/03/2024 EGD and COL/MAC Patient: CARLO HARDWICK I Provider: Missael Ruby MD :1950 A ge:74 Y S ex:Female Date:09/03/2024 Address:[address] [place], [place] [phone] Pcp:Glenys Looney MD Subjective: * Chief Complaints: * 1 . abnormal UGI series,screening. * Medical History: Objective: * Vitals: Assessment: * Assessment: 1. C olon cancer screening - Z12.11 (Primary) 2 . G micaela-esophageal reflux disease without esophagitis - K21.9 Plan: * Treatment: * Procedure Codes: 4 5378 DIAGNOSTIC COLONOSCOPY, 0529F INTRVL 3+YRS PTS CLNSCP DOCD, 0528F RCMND FLW-UP 10 YRS DOCD, [address] UPPER GI ENDOSCOPY, BIOPSY * * The named appointment provid er may or may not be the originator of this progress note, and it is not deemed complete until electronically signed by the appointment provider. Sign off status: Pending * Provider: Missael Ruby MD Date: 11/03/2023 Generated for Mari otero/Krishna/Raineritting on: 0 05/27/2025 02:26 PM EDT
--- NOTE | 2025-05-27 13:44 | HO.NEPHOV_ITS ---
Vital Signs 05/27/25 13:45 Height 5 ft 2 in Weight 113 lb BMI 20.7 BP 176/92 H Blood Pressure Location Lt brachial Position Sitting Pulse 79 Pulse Source Pulse Oximeter Pulse Oximetry (%) 100 Oxygen Delivery Method Room Air Intake Visit Reasons: Medication Review Area Field Worker Required: No Accompanied by: Self / Same As Patient Allergies sulfamethoxazole (From BACTRIM) Allergy (Severe, Verified 05/27/25 13:46) blisters/photosensitivity trimethoprim (From BACTRIM) Allergy (Severe, Verified 05/27/25 13:46) blisters/photosensitivity codeine (CODEINE) Allergy (Intermediate, Verified 05/27/25 13:46) Nausea and Vomiting losartan Allergy (Unknown, Verified 05/27/25 13:46) Swelling indomethacin (From Indocin) Allergy (Verified 05/27/25 13:46) Hives Medication List - Last Reconciled 05/27/25 by Dada Gonzalez MD calcium carbonate-vitamin D3 500 mg-10 mcg (400 unit) (Calcium 500 + D) 500 tabs PO DAILY MDD 500 famotidine 40 mg PO BEDTIME lactobacillus combination no.4 (Probiotic) 3,000 mmu cells PO DAILY metoprolol succinate ER 100 mg PO DAILY HPI Comments Details: 75-year-old woman with a history of hypertension and possible superimposed white coat hypertension has been referred for evaluation hypertension. She is currently on metoprolol 100 mg a day. About 5 days ago amlodipine 5 mg has been added. Prior to that she was on losartan but this was discontinued because of a rash. She was on lisinopril several years ago which caused palpitation therefore that was discontinued as well. She has been monitoring her blood pressure at home. Usually systolic blood pressure is in the 130s to 140s. In the doctor's office setting blood pressure is always in the 170/80s. 02/20/25 Underwent ABPM Results reveiwed with Sharon Has been on Amlodipine 5 mg QD for a month Initial SBP was 148 Repeat BP ,by me, was 160/90 04/10/25 75-year-old female presenting with issues related to blood pressure management. She experienced leg and foot edema while on a higher dose of amlodipine (10 mg) for her essential hypertension. To mitigate symptoms, she self-adjusted her dose to 5 mg after a specific low blood pressure reading and adverse reaction. With the adjusted dose to 5 mg, her blood pressure levels stabilized, generally remaining in the one-teens systolic range, and the severity of edema diminished significantly. The diastolic pressure readings have also improved, indicating effective blood pressure control. She has been consistently monitoring her blood pressure at home, confirming that the higher readings observed in the office are not contracts representative of her typical patterns. Overall, she has not reported any significant side effects such as dizziness or loss of balance, and her breathing remains unaffected. She will continue monitoring her blood pressure weekly at home to ensure maintenance of optimal levels. 05/27/25 Developed lip swelling and she thinks it is due to amlodipine Stopped amlodpine a week ago and lip swelling resolved. BP was well controlled while on Amlodpine [facility] Medical History (Updated 03/04/25 @ 10:48 by Glenys Looney MD) History of ductal carcinoma in situ (DCIS) of right breast White coat syndrome with hypertension Dyslipidemia Hx of radiation therapy GERD (gastroesophageal reflux disease) Hiatal hernia Osteoporosis Family history of cancer Breast cancer Surgical History Hx of hemorrhoidectomy H/O colonoscopy History of appendectomy History of lumpectomy Family History Sister Pancreatic cancer Maternal Aunt Breast cancer Pancreatic cancer Colon cancer Paternal Aunt Breast cancer Social History Household Members: Spouse Housing: House Are you a primary hearing care practitioner to a significant other at home: No Do you presently have visiting nurse or other home services: No Alcohol intake: current Alcohol intake frequency: holidays/special occasions only Patient Tobacco Use Status: Never used Tobacco e-Cigarette/Vaping Use: Never Used service: No 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al status: retired 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 Cognitive needs: No Hearing needs: No Vision needs: Yes Physical Exam Vital Signs: Last Vital Signs Pulse 79 05/27/25 13:45 BP 176/92 H 05/27/25 13:45 Pulse Ox 100 05/27/25 13:45 Oxygen Delivery Method Room Air 05/27/25 13:45 BMI result Body Mass Index 20.7 Comfortable Neck supple no JVD. Lungs entry equal no rales. Heart S1-S2 heard no gallop or rub. Abdomen soft nontender. Neuro alert awake oriented. No asterixis. Extremities no edema. Assessment & Plan Assessment & Plan (1) Hypertension: Code(s): I10 - Essential (primary) hypertension Category: Medical Qualifiers: Hypertension type: primary hypertension Qualified Code(s): I10 - Essential (primary) hypertension (2) White coat syndrome with hypertension: Code(s): I10 - Essential (primary) hypertension Category: Medical Plan 75-year-old woman with a history of longstanding hypertension. ABPM shows stage 1 HTN with Dipping She has superimposed white coat effect. Plan Stop AMLODIPINE 5 mg QD Try Procardia XL 30 mg daily Watch for lip swelling In the meantime encouraged her to stay on a low-sodium diet. Keep Metoprolol at current dose ( HR 50- 60s) Unable to Use Lisinopril or Losartan. Medications: New nifedipine ER (Procardia XL) 30 mg PO DAILY 30 tabs 1RF Coding Level of Care Code Est Pt Level 4 (82016) Diagnoses Primary hypertension I10 Hypertension type: primary hypertension White coat syndrome with hypertension I10
[2025-05-27 13:45] VITALS: BP 176/92; PULSE 79; O2SAT 100; BMI 20.7
--- OUTSIDE RECORDS SUMMARY | 2025-05-27 14:27 | XMS_ITS | Clinical Summary ---
Author Organization [facility] Address [address] [place] [address] Phone Care Team Providers Care Butcher Or Smallgoods Maker Name Role Phone Glenys Looney MD Primary Care Provider Allergies Active Allergy Reactions Criticality Noted Date Comments Codeine Phosphate Unknown 06/20/2024 Indomethacin Unknown 06/20/2024 Sulfamethoxazole-Trimethoprim Unknown 2023 Medications metoprolol succinate (TOPROL-XL) 100 MG 24 hr tablet Take 1 tablet by mouth every morning. 03/26/2024 Active famotidine (PEPCID) 40 MG tablet take 1 tablet by mouth everyday at bedtime 05/22/2024 Active aspirin 81 MG EC tablet Take 81 mg by mouth daily. Active Immunizations Immunization Administration Dates Next Due Tdap 06/20/2024 Social History Tobacco Use Types Packs/Day Years Used Date Smoking Tobacco: Never Assessed Education Answer Date Recorded Are you interested in more education? Not on yamilka e 06/20/2024 Are you concerned about learning? Not on file 06/20/2024 No 06/20/2024 No 06/20/2024 Digital Access Answer Date Recorded No 06/20/2024 No 06/20/2024 Reliable internet access at home? Not on file 06/20/2024 Device with a working camera? Not on file Comments Unknown Sex and Gender Information Value Date Recorded Sex Assigned at Not on file Legal Sex Female 6:07 PM EDT Gender Identity Not on file Sexual Orientation Not on file Last Filed Vital Signs Vital Sign Reading Time Taken Comments Blood Pressure 192/96 06/30/2024 12:28 PM EDT bp was taken manually pt did advise they are documenting and logging bp for pcp Pulse 90 06/30/2024 12:28 PM EDT Temperature 36.9 C (98.4 F) 06/20/2024 6:48 PM EDT Respiratory Rate 18 06/30/2024 12:2 8 PM EDT Oxygen Saturation 100% 06/30/2024 12: 28 PM EDT Inhaled Oxygen Concentration - - Weight - - Height - - Body Mass Index - - Plan of Treatment Health Maintenance Due Date Last Done Comments LIPID PANEL 1950 DEPRESSION SCREENING 1964 SMOKING Hx and SMOKELESS TOBACCO SCREENING 02/05/1965 HEPATITIS C SCREENING 02/05/1970 MAMMOGRAM 1992 COLOGUARD 02/05/1997 COLONOSCOPY 02/05/1997 COLORECTAL CANCER SCREENING 02/05/1997 FIT TEST 02/05/1997 FOBT 02/05/1997 SIGMOIDOSCOPY 02/05/1997 VIRTUAL COLONOSCOPY 02/05/1997 OSTEOPOROSIS SCREENING INITIAL (ONE-TIME) 02/05/2017 PNEUMOCOCCAL VACCINES (50+ years) (2 of 2 - PCV) 09/28/2018 09/28/2017 COVID-19 VACCINE ( season) 2024 08/22/2023, 08/15/2022, 03/21/2022, Additional history exists Adult Td,Tdap Booster 06/20/2034 06/20/2024, 015 RSV VACCINE Completed 09/29/2023 ZOSTER VACCINES Completed 04/02/2024, 11/24/2023 HEPATITIS A VACCINES Aged Out No long er eligible based on patient's age to complete this topic HIB VACCINES Aged Out No longer eligi ble based on patient's age to complete this topic MENINGOCOCCAL VACCINES (ACWY) Aged Out No longer eligible based on patient's age to complete this topic MENINGOCOCCAL VACCINES (B) Aged Out N o longer eligible based on patient's age to complete this topic Medical Devices Not on file Insurance MEDICARE PART A & B [employer] MEDEX SUPPLEMENT MEDICARE PART A & B [employer] MEDEX SUPPLEMENT MEDICARE PART A & B [employer] MEDEX SUPPLEMENT MEDICARE PART A & B Member Subscriber Plan / Payer (Ef fective 2017-) Name:Krista Borden Member ID:[id number] Relation to Subscriber:Self Name:Krista Borden Subscriber ID:[id number] Payer ID:[id number] Group ID:Not on file Type:Medicare Address: [place] [address] [place] [phone] [employer] MEDEX SUPPLEMENT MEDICARE PART A & B [employer] MEDEX SUPPLEMENT MEDICARE PART A & B [employer] MEDEX SUPPLEMENT Care Teams Butcher Or Smallgoods Maker Relationship Specialty Start Date End Date Glenys Looney MD 1959 [facility] [place] [address] PCP - General Internal Medicine 06/20/24 Additional Source Comments The information contained in this document represents components of the legal health record. It is not the complete legal health record.[facility]
== END 2025-05-27 15:22 | disposition home or self-care (01) ==
LOC: HO.HKA 13:39
PROVIDERS: PCP Internal Medicine; Visit Provider Internal Medicine Hypertension Specialist
DX: I10 Essential (primary) hypertension (principal)
CPT/HCPCS: 99214

== ENCOUNTER → 2025-05-27 13:38 | Outpatient (BNVA) | payer MEDICARE, SELFPAY | PROVIDERS: PCP Internal Medicine; Visit Provider Internal Medicine Hypertension Specialist | DX: I10 Essential (primary) hypertension (principal) | CPT/HCPCS: 99212 ==

== ENCOUNTER 2025-06-05 09:40 | Outpatient (AMB) | payer MEDICARE, SELFPAY ==
--- OUTSIDE RECORDS SUMMARY | 2024-09-03 06:50 | XMS_ITS ---
Author Organization [facility] Address [address] [place] [phone] Care Team Providers Care Final Inspector And Tester Name Role Phone Aure WONG, Glenys Primary Care Provider Bogdan Mcfadden Jr REASON FOR VISIT abnormal UGI series,screening Problems Problem Type SNOMED Code ICD Code Onset Dates Problem Status W/U Status Risk Notes Problem Gastro-esophagea l reflux disease without esophagitis (528901815) Gastro-esophage al reflux disease without esophagitis (K21.9) Active confirmed Encounters Encounter Location Date Provider Diagnosis [facility] [place] [address] [place] [phone] 09/03/2024 Bogdan Ruby Jr Colon cancer screening Z12.11 and Gastro-esophageal reflux disease without esophagitis K21.9 Assessments Encounter Date Diagnosis (ICD Code) Assessment Notes Treatment Notes Treatment Clinical Notes Section Notes 09/03/2024 Colon cancer screening (ICD-10 - Z12.11) 09/03/2024 Gastro-esophagea l reflux disease without esophagitis (ICD-10 - K21.9) Plan Of Treatment No Information Progress Notes * CARLO LI IDOB: 2 (75 yo F)Acc No.[id number]:09/03/2024 EGD and COL/MAC Patient: CARLO HARDWICK I Provider: Missael Ruby MD :1950 A ge:74 Y S ex:Female Date:09/03/2024 Address:[address] [place], [place] [phone] Pcp:Glenys Looney MD Subjective: * Chief Complaints: * 1 . abnormal UGI series,screening. * Medical History: Objective: * Vitals: Assessment: * Assessment: 1. C olon cancer screening - Z12.11 (Primary) 2 . G micaela-esophageal reflux disease without esophagitis - K21.9 Plan: * Treatment: * Procedure Codes: 4 5378 DIAGNOSTIC COLONOSCOPY, 0529F INTRVL 3+YRS PTS CLNSCP DOCD, 0528F RCMND FLW-UP 10 YRS DOCD, [address] UPPER GI ENDOSCOPY, BIOPSY * * The named appointment provid er may or may not be the originator of this progress note, and it is not deemed complete until electronically signed by the appointment provider. Sign off status: Pending * Provider: Missael Ruby MD Date: 11/03/2023 Generated for Mari otero/Krishna/Raineritting on: 0 06/05/2025 10:07 AM EDT
--- NOTE | 2025-06-05 09:44 | A.OFFVIS_ITS ---
Vital Signs 3 06/05/25 09:54 Height 5 ft 2 in Weight 110 lb BMI 20.1 BP 140/88 H Blood Pressure Location Lt brachial Position Sitting Intake Visit Reasons: annual breast check Intake Note: Patient is seen in office for yearly breast exam. Pt c/o: denies any concerns regarding the breast mm sched: 06/24/25 MRI: 01/21/25 Mid Level Business Analyst Required: No Manager Practice: Manager Practice Present Accompanied by: Self / Same As Patient Allergies sulfamethoxazole (From BACTRIM) Allergy (Severe, Verified 06/05/25 10:02) blisters/photosensitivity trimethoprim (From BACTRIM) Allergy (Severe, Verified 06/05/25 10:02) blisters/photosensitivity codeine (CODEINE) Allergy (Intermediate, Verified 06/05/25 10:02) Nausea and Vomiting losartan Allergy (Unknown, Verified 06/05/25 10:02) Swelling indomethacin (From Indocin) Allergy (Verified 06/05/25 10:02) Hives HPI Comments Details: 75-year-old female patient returning for a follow-up breast examination after right breast surgery.? She was diagnosed with ductal carcinoma in situ and underwent lumpectomy with needle localization by Dr. De La O on 03/17/2016.? She subsequently underwent radiation therapy which she completed on 05/19/2016.? She was also placed on tamoxifen which she took for 5 years and has now completed.? She feels well and denies any ongoing breast symptoms.? She did report her sister underwent a Whipple for pancreatic carcinoma.? This was felt to be an early stage and she underwent a single course of chemotherapy but did not tolerate this. She declined any further chemotherapy and is being watched now.? She had a very difficult postoperative course and was hospitalized approximately 8 weeks.? Her sister was tested for genetic mutations and was negative.? Patient wishes to hold off on any genetic testing at this time.? Patient's last mammogram dated 06/18/2024 revealed no mammographic evidence of malignancy (BI- RADS 2). Because of elevated CA 27-29 levels, a breast MRI was performed on 01/21/2025 which revealed no MR specific evidence of malignancy (BI-RADS 1 left and BI-RADS 2 right). She denies any new symptoms in her breast and generally feels well. [facility] Medical History History of ductal carcinoma in situ (DCIS) of right breast White coat syndrome with hypertension Dyslipidemia Hx of radiation therapy GERD (gastroesophageal reflux disease) Hiatal hernia Osteoporosis Family history of cancer Breast cancer Surgical History Hx of hemorrhoidectomy H/O colonoscopy History of appendectomy History of lumpectomy Family History Sister Pancreatic cancer Maternal Aunt Breast cancer Pancreatic cancer Colon cancer Paternal Aunt Breast cancer Social History Household Members: Spouse Housing: House Are you a primary critical care unit nurse to a significant other at home: No Do you presently have visiting nurse or other home services: No Alcohol intake: current Alcohol intake frequency: holidays/special occasions only Patient Tobacco Use Status: Never used Tobacco e-Cigarette/Vaping Use: Never Used service: No 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al status: retired 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 No underlying masses appreciated. No new skin change, nipple discharge or nipple retraction. No enlarged lymph nodes. Left breast: No skin change, nipple discharge, palpable mass or enlarged lymph nodes. Chest/axillae images: 2 1. Well-healed incision upper outer quadrant right breast Resp Effort & Inspection: normal respiratory effort Skin General skin exam: no rashes or lesions noted Neuro Other: Mobility Assessment: 1. 3 meter assessment time (seconds) 5 2. Gait observations: Normal balance and gait General: patient oriented x3 Extrem General: Yes no clubbing, cyanosis or edema Assessment & Plan Assessment & Plan (1) Ductal carcinoma in situ (DCIS) of right breast: Code(s): D05.11 - Intraductal carcinoma in situ of right breast Category: Medical Plan 75-year-old female patient with a prior history of right ductal carcinoma in situ, radiation therapy status post right breast lumpectomy returning now for an annual breast examination. Her most recent mammogram of 06/18/2024 revealed no mammographic evidence of malignancy (BI-RADS 2). Breast MRI of 01/21/2025 revealed no MR specific evidence of malignancy (BI-RADS 1 left breast, BI-RADS 2 right breast). Examination today revealed no suspicious findings in either breast. She will follow up in 1 year for routine breast examination. She is welcome to call sooner for any new concerns. Coding Level of Care Code Est Pt Level 3 (54067) Diagnoses Ductal carcinoma in situ (DCIS) of right breast D05.11
[2025-06-05 09:54] VITALS: BP 140/88; BMI 20.1
--- OUTSIDE RECORDS SUMMARY | 2025-06-05 10:08 | XMS_ITS | Clinical Summary ---
Author Organization [facility] Address [address] [place] [phone] Phone Care Team Providers Care Integrated Circuits Inspector Name Role Phone Glenys Looney MD Primary [...] file Insurance MEDICARE PART A & B apprupt MEDEX SUPPLEMENT MEDICARE PART A & B apprupt MEDEX SUPPLEMENT MEDICARE PART A & B apprupt MEDEX SUPPLEMENT MEDICARE PART A & B Member Subscriber Plan / Payer (Ef fective 2017-) Name:Krista Borden Member ID:[id number] Relation to Subscriber:Self Name:Krista Borden Subscriber ID:[id number] Payer ID:[id number] Group ID:Not on file Type:Medicare Address: [employer] [address] [place] [phone] apprupt MEDEX SUPPLEMENT MEDICARE PART A & B apprupt MEDEX SUPPLEMENT MEDICARE PART A & B apprupt MEDEX SUPPLEMENT Care Teams Integrated Circuits Inspector Relationship Specialty Start Date End Date Glenys Looney MD 1959 [facility] [place] [address] PCP - General Internal Medicine 06/20/24 Additional Source Comments The information contained in this document represents components of the legal health record. It is not the complete legal health record.[facility]
== END 2025-06-05 10:14 | disposition home or self-care (01) ==
LOC: HO.HGS 09:41
PROVIDERS: PCP Internal Medicine; Visit Provider Surgery
DX: D05.11 Intraductal carcinoma in situ of right breast (principal)
CPT/HCPCS: 99213

== ENCOUNTER → 2025-06-05 09:40 | Outpatient (BNVA) | payer MEDICARE, SELFPAY | PROVIDERS: PCP Internal Medicine; Visit Provider Surgery | DX: Z09 Encounter for follow-up examination after completed treatment for conditions other than malignant neoplasm (principal); Z86.000 Personal history of in-situ neoplasm of breast; Z92.3 Personal history of irradiation; Z98.890 Other specified postprocedural states | CPT/HCPCS: 99212 ==

== ENCOUNTER 2025-06-24 10:01 | Outpatient (REF) | payer MEDICARE, SELFPAY ==
--- OUTSIDE RECORDS SUMMARY | 2024-09-03 06:50 | XMS_ITS ---
Author Organization [facility] Address [address] [place] [phone] Care Team Providers Care Hand Cutter Apprentice Name Role Phone Aure WONG, Glenys Primary Care Provider Bogdan Mcfadden Jr [phone] REASON FOR VISIT abnormal UGI series,screening Problems Problem Type SNOMED Code ICD Code Onset Dates Problem Status W/U Status Risk Notes Problem Gastro-esophagea l reflux disease without esophagitis (482040685) Gastro-esophage al reflux disease without esophagitis (K21.9) Active confirmed Encounters Encounter Location Date Provider Diagnosis [facility] [place] [address] [place] [phone] 09/03/2024 Bogdan Ruby Jr Colon cancer screening Z12.11 and Gastro-esophageal reflux disease without esophagitis K21.9 Assessments Encounter Date Diagnosis (ICD Code) Assessment Notes Treatment Notes Treatment Clinical Notes Section Notes 09/03/2024 Colon cancer screening (ICD-10 - Z12.11) 09/03/2024 Gastro-esophagea l reflux disease without esophagitis (ICD-10 - K21.9) Plan Of Treatment No Information Progress Notes * CARLO LI IDOB: 2 (75 yo F)Acc No.[id number]:09/03/2024 EGD and COL/MAC Patient: CARLO HARDWICK I Provider: Missael Ruby MD :1950 A ge:74 Y S ex:Female Date:09/03/2024 Address:[address] [place], [place] [phone] Pcp:Glenys Looney MD Subjective: * Chief Complaints: * 1 . abnormal UGI series,screening. * Medical History: Objective: * Vitals: Assessment: * Assessment: 1. C olon cancer screening - Z12.11 (Primary) 2 . G micaela-esophageal reflux disease without esophagitis - K21.9 Plan: * Treatment: * Procedure Codes: 4 5378 DIAGNOSTIC COLONOSCOPY, 0529F INTRVL 3+YRS PTS CLNSCP DOCD, 0528F RCMND FLW-UP 10 YRS DOCD, [address] UPPER GI ENDOSCOPY, BIOPSY * * The named appointment provid er may or may not be the originator of this progress note, and it is not deemed complete until electronically signed by the appointment provider. Sign off status: Pending * Provider: Missael Ruby MD Date: 11/03/2023 Generated for Mari otero/Krishna/Raineritting on: 0 06/24/2025 10:43 AM EDT
--- NOTE | ~2025-06-24 | MM_ITS ---
EXAMINATION: MM SCREENING DIGITAL BREAST TOMOSYNTHESIS, BILATERAL CLINICAL INFORMATION: Screening. Asymptomatic. History of right ductal carcinoma in situ 2016 status post lumpectomy. Family history of breast cancer. COMPARISON: Mammography: Comparison is made with available priors TECHNIQUE: Digital breast mammography with tomosynthesis is performed in both the craniocaudal and mediolateral oblique views along with computer-aided detection (CAD). FINDINGS: The breasts are heterogeneously dense, which may obscure small masses (ACR BI-RADS breast composition Category c). Right breast post lumpectomy changes. There are no significant masses, abnormal calcifications, or other abnormalities. MM/MM tomosynthesis screening BI IMPRESSION: No mammographic evidence of malignancy. ASSESSMENT: BI-RADS BI-RADS 2 - Benign Findings RECOMMENDATION: Routine annual mammography screening. 1 year F/U This examination should not preclude the clinical evaluation of a suspicious palpable abnormality. This patient's information was entered into a reminder system with a target due date for their next mammogram. Electronically signed by: Hattie Mendez DO 06/24/2025 12:03 PM EDT
--- OUTSIDE RECORDS SUMMARY | 2025-06-24 10:43 | XMS_ITS | Clinical Summary ---
Author Organization [facility] Address [address] [place] [address] Phone Care Team Providers Care Leaf Stamper Name Role Phone Glenys Looney MD Primary [...] file Insurance MEDICARE PART A & B [employer] MEDEX SUPPLEMENT MEDICARE PART A & B [employer] MEDEX SUPPLEMENT MEDICARE PART A & B [employer] MEDEX SUPPLEMENT MEDICARE PART A & B Member Subscriber Plan / Payer (Ef fective 2017-) Name:Krista Borden Member ID:[id number] Relation to Subscriber:Self Name:Krista Borden Subscriber ID:[id number] Payer ID:[id number] Group ID:Not on file Type:Medicare Address: [employer] [address] [place] [phone] [employer] MEDEX SUPPLEMENT MEDICARE PART A & B [employer] MEDEX SUPPLEMENT MEDICARE PART A & B [employer] MEDEX SUPPLEMENT Care Teams Leaf Stamper Relationship Specialty Start Date End Date Glenys Looney MD [address] [place] [address] PCP - General Internal Medicine 06/20/24 Additional Source Comments The information contained in this document represents components of the legal health record. It is not the complete legal health record.[facility]
--- OUTSIDE RECORDS SUMMARY | 2025-06-24 10:43 | XMS_ITS | Patient Health Record ---
Author Organization [facility] Address [address] [place] [address] Care Team Providers Care Traffic Control Signaler Name Role Phone Aure WONG, Glenys Primary Care Provider Bogdan Mcfadden Jr Allergies Allergen (clinical drug ingredient) Drug/Non Drug Allergy documented on EMR Reaction Allergy Type Onset Date Status indomethacin Indocin Unknown Drug Allergy Acti ve Codeine Phosphate Unknown Drug Allergy Active sulfamethoxazole / trimethoprim Bactrim Unknown Drug Allergy Active Results Component Value Reference Range Notes Pathology Reviewed date:09/12/2024 09:21:41 AM Interpretation: Performing Lab:[facility], [address] [place] [id number] Notes/Report: Reason For Referral No Information Medications Medication [...] Problem Status W/U Status Risk Notes Problem 633161014 Colon cancer screening (Z12.11) Active confirmed Problem Gastro-esophage al reflux disease without esophagitis (002035542) Gastro-esophageal reflux disease without esophagitis (K21.9) Active confirmed Problem 631857644 Abnormal finding s on diagnostic imaging of other parts of digestive tract (R93.3) Active confirmed Problem 848664685 Gastroesophageal reflux disease without esophagitis (K21.9) Active confirmed Vital Signs Temperature 97.1 degrees Fahrenheit 07/22/2024 Blood pressure diastolic 00 mm Hg 07/22/2024 Height 63.25 in 07/22/2024 Blood pressure systolic 000 mm Hg 07/22/2024 Weight 112 lb 6 oz lbs 07/22/2024 BMI 19.75 kg/m2 07/22/2024 Encounters Encounter Location Date Provider Diagnosis [facility] [place] [facility] [address] [place], [place] [id number] 09/03/2024 Bogdan Ruby Jr Colon cancer screening Z12.11 and Gastro-esophageal reflux disease without esophagitis K21.9 [facility] [address] [place] [phone] 07/22/2024 Bogdan Ruby Jr Abnormal findings on diagnostic imaging of other parts of digestive tract R93.3 ; Colon cancer screening Z12.11 and Gastroesophageal reflux disease without esophagitis K21.9 [facility] [address] [place] [phone] 09/12/2024 Bogdan Ruby Jr Assessments Encounter Date [...] Date MEDICARE OF [place] [address] [place] [address] [id number] CARLO LI Self - patient is the insured MEDEX ATTN CLAIMS [address] [place] [address] [id number] CARLO LI Self - patient is the insured Medical (General) History Medical History History ICD Code Colonoscopy 2013, negative, ten-year fol lowup 2015 DCIS right breast, lumpectomy hiatal hernia osteoporosis hypertension Gastroesophageal reflux disease Surgical History Surgery Date(Month/Year) appendectomy hemorrhoid banding lumpectomy, radiation
== END 2025-06-24 10:02 | disposition home or self-care (01) ==
LOC: HO.MAMMO 10:01
PROVIDERS: PCP Internal Medicine; Visit Provider Internal Medicine
DX: Z12.31 Encounter for screening mammogram for malignant neoplasm of breast (principal)
CPT/HCPCS: 77063; 77067

== ENCOUNTER → 2025-06-24 10:15 | Outpatient (BNV) | payer MEDICARE, SELFPAY | PROVIDERS: PCP Internal Medicine; Visit Provider Internal Medicine | DX: Z12.31 Encounter for screening mammogram for malignant neoplasm of breast (principal) | CPT/HCPCS: 77063; 77067 ==

== ENCOUNTER 2025-06-25 12:57 | Outpatient (AMB) | payer MEDICARE, SELFPAY ==
--- OUTSIDE RECORDS SUMMARY | 2024-09-03 06:50 | XMS_ITS ---
Author Organization [facility] Address [address] [place] [phone] Care Team Providers Care Pediatric Physician Assistant Name Role Phone Aure WONG, Glenys Primary Care Provider Bogdan Mcfadden Jr [phone] REASON FOR VISIT abnormal UGI series,screening Problems Problem Type SNOMED Code ICD Code Onset Dates Problem Status W/U Status Risk Notes Problem Gastro-esophagea l reflux disease without esophagitis (169842757) Gastro-esophage al reflux disease without esophagitis (K21.9) Active confirmed Encounters Encounter Location Date Provider Diagnosis [facility] [place] [address] [place] [phone] 09/03/2024 Bogdan Ruby Jr Colon cancer screening Z12.11 and Gastro-esophageal reflux disease without esophagitis K21.9 Assessments Encounter Date Diagnosis (ICD Code) Assessment Notes Treatment Notes Treatment Clinical Notes Section Notes 09/03/2024 Colon cancer screening (ICD-10 - Z12.11) 09/03/2024 Gastro-esophagea l reflux disease without esophagitis (ICD-10 - K21.9) Plan Of Treatment No Information Progress Notes * CARLO LI IDOB: 2 (75 yo F)Acc No.[id number]:09/03/2024 EGD and COL/MAC Patient: CARLO HARDWICK I Provider: Missael Ruby MD :1950 A ge:74 Y S ex:Female Date:09/03/2024 Address:[address] [place], [place] [phone] Pcp:Glenys Looney MD Subjective: * Chief Complaints: * 1 . abnormal UGI series,screening. * Medical History: Objective: * Vitals: Assessment: * Assessment: 1. C olon cancer screening - Z12.11 (Primary) 2 . G micaela-esophageal reflux disease without esophagitis - K21.9 Plan: * Treatment: * Procedure Codes: 4 5378 DIAGNOSTIC COLONOSCOPY, 0529F INTRVL 3+YRS PTS CLNSCP DOCD, 0528F RCMND FLW-UP 10 YRS DOCD, [address]40[address] UPPER GI ENDOSCOPY, BIOPSY * * The named appointment provid er may or may not be the originator of this progress note, and it is not deemed complete until electronically signed by the appointment provider. Sign off status: Pending * Provider: Missael Ruby MD Date: 11/03/2023 Generated for Mari otero/Krishna/Raineritting on: 0 06/25/2025 01:24 PM EDT
--- NOTE | 2025-06-25 13:19 | MHC.PC.OV ---
Vital Signs 06/25/25 13:20 Height 5 ft 2 in Weight 114 lb BMI 20.8 BP 148/84 H Blood Pressure Location Rt brachial Position Sitting Respiration 16 Pulse 70 Pulse Source Pulse Oximeter Temp 98.2 F Temp Source Oral Pulse Oximetry (%) 98 Oxygen Delivery Method Room Air Intake Visit Reasons: lump on tongue Intake Note: Pt is here today c/o lump on tongue Allergies sulfamethoxazole (From BACTRIM) Allergy (Severe, Verified 06/25/25 13:38) blisters/photosensitivity trimethoprim (From BACTRIM) Allergy (Severe, Verified 06/25/25 13:38) blisters/photosensitivity codeine (CODEINE) Allergy (Intermediate, Verified 06/25/25 13:38) Nausea and Vomiting amlodipine Allergy (Unknown, Verified 06/25/25 13:38) Swelling losartan Allergy (Unknown, Verified 06/25/25 13:38) Swelling nifedipine Allergy (Unknown, Verified 06/25/25 13:38) Swelling indomethacin (From Indocin) Allergy (Verified 06/25/25 13:38) Hives Medication List - Last Reconciled 07/01/25 by Glenys Looney MD calcium carbonate-vitamin D3 500 mg-10 mcg (400 unit) (Calcium 500 + D) 500 tabs PO DAILY MDD 500 famotidine 40 mg PO BEDTIME hydralazine 25 mg PO BID lactobacillus combination no.4 (Probiotic) 3,000 mmu cells PO DAILY metoprolol succinate ER 100 mg PO DAILY Tobacco use date assessed: 04/02/25 Fall risk assessment: No Falls in past year Last assessed Fall Risk: 06/25/25 Dental Screening Dental Screen Date: 06/25/25 Did you have a dental visit in the last 12 months?: Yes Did you have a dental problem in the last 6 months where you did not have access to dental care?: Yes Was dental information given to patient?: Patient has dentist HPI lump on tongue HPI Details - The patient is a 75-year-old female with history of hypertension, here today complaining of lump felt along the lateral aspect of her tongue, and alteration in her taste. -has hypertension, currently followed by Nephrology, reports that amlodipine and nifedipine caused significant oral swelling and discomfort, leading to discontinuation. - Clonidine is currently being used, but the patient reports dry mouth and oral discomfort as side effects. - Oral mucosal swelling: The patient experienced swelling of the lips, tongue, and gums, initially attributed to antihypertensive medications. - Aphthous ulcers: The patient has developed ulcers on the tongue, which have persisted despite discontinuation of nifedipine. - Dry mouth syndrome: The patient reports significant oral dryness, exacerbated by clonidine, and has been using Biotene to manage symptoms. [facility] Medical History History of ductal carcinoma in situ (DCIS) of right breast White coat syndrome with hypertension Dyslipidemia Hx of radiation therapy GERD (gastroesophageal reflux disease) Hiatal hernia Osteoporosis Family history of cancer Breast cancer Surgical History Hx of hemorrhoidectomy H/O colonoscopy History of appendectomy History of lumpectomy Family History Sister Pancreatic cancer Maternal Aunt Breast cancer Pancreatic cancer Colon cancer Paternal Aunt Breast cancer Social History Household Members: Spouse Housing: House Are you a primary customer care voice consultant to a significant other at home: No Do you presently have visiting nurse or other home services: No Alcohol intake: current Alcohol intake frequency: holidays/special occasions only Patient Tobacco Use Status: Never used Tobacco e-Cigarette/Vaping Use: Never Used service: No 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al status: retired 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 Cognitive needs: No Hearing needs: No Vision needs: Yes Questionnaire Thrive Questionnaire Date Thrive assessed: 12/27/24 I am a: Patient What is your living situation today?: I have a steady place to live Within the past 12 months, did the food you bought not last and you didn't have the money to get more?: Never true Within the past 12 months, did you worry whether your food would run out before you got money to buy more?: Never true Do you have trouble paying for medicines?: No Do you have trouble getting transportation to medical appointments?: No Do you have trouble paying your heating and electricity bill?: No Do you have trouble taking care of your child, family member or friend?: No Do you have trouble with day-to-day activities such as bathing, preparing meals, shopping, managing finances, etc.?: No Are you currently unemployed and looking for a job?: No Are you interested in more education?: No Please select the resources that you would like help with: None Currently or been in a relationship where the following occur: No concerns reported THRIVE Score: 0 JADE-7 AMB Questionnaire JADE-7 Date JADE - 7 assessed: 01/02/25 Source: Developed by Drs. Yuri Ruiz, Cindi Mitchell, Camacho North and colleagues, with an educational jass from [employer]. Review of Systems Const All systems reviewed & are unremarkable except as noted in HPI and below Physical exam (Primary Care) Vital Signs: Last Vital Signs Temp 98.2 F 06/25/25 13:20 Pulse 70 06/25/25 13:20 Resp 16 06/25/25 13:20 BP 148/84 H 06/25/25 13:20 Pulse Ox 98 06/25/25 13:20 Oxygen Delivery Method Room Air 06/25/25 13:20 BMI result Body Mass Index 20.8 Tobacco/Smoking Status: Tobacco use Status Tobacco use date assessed 04/02/25 06/25/25 13:21 Patient Tobacco Use Status Never used Tobacco 06/25/25 13:21 e-Cigarette/Vaping Use Never Used 06/25/25 13:21 Thrive Assessment: Date of Thrive Assessment Date Thrive assessed 12/27/24 06/25/25 13:21 Currently or been in a relationship where the following occur: No concerns reported Const Other: Alert oriented x3, no acute distress noted ambulatory with normal gait, HENMT Other: Slight erythematous slightly raised lesion on lateral aspect of tongue. Face and sinus: Yes face symmetric Mouth: lip normal Neck Neck: Yes normal visual inspection, Yes full ROM and Yes no lymphadenopathy Resp Auscultation: clear to auscultation bilaterally Coding Level of Care Code Est Pt Level 4 (61756) Diagnoses Dry mouth R68.2 Assessment & Plan Assessment & Plan (1) Dry mouth: Code(s): R68.2 - Dry mouth, unspecified Plan Plan Patient was informed and verbally consented to the use of an ambient scribe for clinic note documentation during this visit. 1. Essential Hypertension The patient is currently on clonidine for hypertension management, but reports significant side effects including dry mouth and oral discomfort. The patient has previously tried amlodipine and nifedipine, both of which caused oral swelling and were discontinued. A referral to an ENT specialist is considered to evaluate persistent oral symptoms and explore alternative antihypertensive options. 2. Dry Mouth Syndrome The patient experiences significant dry mouth, exacerbated by clonidine, which she is no longer taking, and is using Biotin and Prevident to manage symptoms. The patient is advised to continue using saliva substitutes and avoid antihistamines and decongestants that may worsen dryness. 3. Oral Mucosal Swelling The patient reports swelling of the lips, tongue, and gums, initially attributed to antihypertensive medications. The patient is advised to consult with an ENT specialist for further evaluation and management. 4. Aphthous Ulcers The patient has developed aphthous ulcers on the tongue, which have persisted despite discontinuation of nifedipine. The use of magic mouthwash is suggested to alleviate symptoms. Medications: Discontinued clonidine HCl Discontinued Reason: Patient no longer taking 0.1 mg PO BID 60 tabs 1RF
[2025-06-25 13:20] VITALS: BP 148/84; PULSE 70; RESP 16; TEMP 36.8; O2SAT 98; BMI 20.8
--- OUTSIDE RECORDS SUMMARY | 2025-06-25 13:25 | XMS_ITS | Clinical Summary ---
Author Organization [facility] Address [address] [place] [address] Phone Care Team Providers Care Md Physician Dermatologist Name Role Phone Glenys Looney MD Primary [...] file Insurance MEDICARE PART A & B [employer] MEDEX SUPPLEMENT MEDICARE PART A & B [employer] MEDEX SUPPLEMENT MEDICARE PART A & B [employer] MEDEX SUPPLEMENT MEDICARE PART A & B Member Subscriber Plan / Payer (Ef fective 2017-) Name:Krista Borden Member ID:[id number] Relation to Subscriber:Self Name:Krista Borden Subscriber ID:[id number] Payer ID:[id number] Group ID:Not on file Type:Medicare Address: [employer] [address] [place] [phone] [employer] MEDEX SUPPLEMENT MEDICARE PART A & B [employer] MEDEX SUPPLEMENT MEDICARE PART A & B [employer] MEDEX SUPPLEMENT Care Teams Md Physician Dermatologist Relationship Specialty Start Date End Date Glenys Looney MD [address] [facility] [place] [place] [address] PCP - General Internal Medicine 06/20/24 Additional Source Comments The information contained in this document represents components of the legal health record. It is not the complete legal health record.[facility]
--- OUTSIDE RECORDS SUMMARY | 2025-06-25 13:25 | XMS_ITS | Patient Health Record ---
Author Organization [facility] Address [address] [place] [address] Care Team Providers Care Seed Cleaner Operator Name Role Phone Aure WONG, Glenys [...] Pathology Reviewed date:09/12/2024 09:21:41 AM Interpretation: Performing Lab:[facility], [address] [place] [phone] Notes/Report: Reason For Referral No Information Medications [...] Problem Status W/U Status Risk Notes Problem [id number] Colon cancer screening (Z12.11) Active confirmed Problem Gastro-esophage al reflux disease without esophagitis (710146142) Gastro-esophageal reflux disease without esophagitis (K21.9) Active confirmed Problem 983832917 Abnormal finding s on diagnostic imaging of other parts of digestive tract (R93.3) Active confirmed Problem 396570238 Gastroesophageal reflux disease without esophagitis (K21.9) Active confirmed Vital Signs Temperature 97.1 degrees Fahrenheit 07/22/2024 Blood pressure diastolic 00 mm Hg 07/22/2024 Height 63.25 in 07/22/2024 Blood pressure systolic 000 mm Hg 07/22/2024 Weight 112 lb 6 oz lbs 07/22/2024 BMI 19.75 kg/m2 07/22/2024 Encounters Encounter Location Date Provider Diagnosis [facility] [place] [place] Out[facility] [address] [place], [place] [phone] 09/03/2024 Bogdan Ruby Jr Colon cancer screening Z12.11 and Gastro-esophageal reflux disease without esophagitis K21.9 [facility] [address] [place] [phone] 07/22/2024 Bogdan Ruby Jr Abnormal findings on diagnostic imaging of other parts of digestive tract R93.3 ; Colon cancer screening Z12.11 and Gastroesophageal reflux disease without esophagitis K21.9 [facility] [address] [place] [phone] 09/12/2024 Bogdan Ruby Jr Assessments Encounter Date [...] MEDICARE OF [place] [address] [place] [address] [phone] [id number] CARLO LI Self - patient is the insured MEDEX ATTN CLAIMS [address] [place] [phone] [id number] CARLO LI Self - patient is the insured Medical (General) History Medical History History ICD Code Colonoscopy 2013, negative, ten-year fol lowup 2015 DCIS right breast, lumpectomy hiatal hernia osteoporosis hypertension Gastroesophageal reflux disease Surgical History Surgery Date(Month/Year) appendectomy hemorrhoid banding lumpectomy, radiation
== END 2025-06-25 14:08 | disposition home or self-care (01) ==
LOC: HO.HMCC 12:58
PROVIDERS: Visit Provider Internal Medicine
DX: R68.2 Dry mouth, unspecified (principal)

== ENCOUNTER → 2025-06-25 12:57 | Outpatient (BNVA) | payer MEDICARE, SELFPAY | PROVIDERS: Visit Provider Internal Medicine | DX: R68.2 Dry mouth, unspecified (principal) | CPT/HCPCS: 99212 ==

== ENCOUNTER 2025-07-08 13:13 | Outpatient (AMB) | payer MEDICARE, SELFPAY ==
--- OUTSIDE RECORDS SUMMARY | 2024-09-03 06:50 | XMS_ITS ---
Author Organization [facility] Address [address] [place] [phone] Care Team Providers Care Arc Welding Machine Operator Name Role Phone Aure WONG, Glenys Primary Care Provider Bogdan Mcfadden Jr REASON FOR VISIT abnormal UGI series,screening Problems Problem Type SNOMED Code ICD Code Onset Dates Problem Status W/U Status Risk Notes Problem Gastro-esophagea l reflux disease without esophagitis (772982698) Gastro-esophage al reflux disease without esophagitis (K21.9) Active confirmed Encounters Encounter Location Date Provider Diagnosis [facility] [place] [address] [place] [phone] 09/03/2024 Bogdan Ruby Jr Colon cancer screening Z12.11 and Gastro-esophageal reflux disease without esophagitis K21.9 Assessments Encounter Date Diagnosis (ICD Code) Assessment Notes Treatment Notes Treatment Clinical Notes Section Notes 09/03/2024 Colon cancer screening (ICD-10 - Z12.11) 09/03/2024 Gastro-esophagea l reflux disease without esophagitis (ICD-10 - K21.9) Plan Of Treatment No Information Progress Notes * CARLO LI IDOB: 2 (75 yo F)Acc No.[id number]:09/03/2024 EGD and COL/MAC Patient: CARLO HARDWICK I Provider: Missael Ruby MD :1950 A ge:74 Y S ex:Female Date:09/03/2024 Address:[address] [place], [place] [phone] Pcp:Glenys Looney MD Subjective: * Chief Complaints: * 1 . abnormal UGI series,screening. * Medical History: Objective: * Vitals: Assessment: * Assessment: 1. C olon cancer screening - Z12.11 (Primary) 2 . G micaela-esophageal reflux disease without esophagitis - K21.9 Plan: * Treatment: * Procedure Codes: 4 5378 DIAGNOSTIC COLONOSCOPY, 0529F INTRVL 3+YRS PTS CLNSCP DOCD, 0528F RCMND FLW-UP 10 YRS DOCD, [address] UPPER GI ENDOSCOPY, BIOPSY * * The named appointment provid er may or may not be the originator of this progress note, and it is not deemed complete until electronically signed by the appointment provider. Sign off status: Pending * Provider: Missael Ruby MD Date: 11/03/2023 Generated for Mari otero/Krishna/Raineritting on: 0 07/08/2025 03:35 PM EDT
[2025-07-08 13:22] VITALS: BP 178/94; PULSE 88; O2SAT 100; BMI 20.3
--- NOTE | 2025-07-08 13:22 | HO.NEPHOV_ITS ---
Vital Signs 07/08/25 13:22 Height 5 ft 2 in Weight 111 lb BMI 20.3 BP 178/94 H Blood Pressure Location Rt brachial Position Sitting Pulse 88 Pulse Source Pulse Oximeter Pulse Oximetry (%) 100 Oxygen Delivery Method Room Air Intake Visit Reasons: Medication review-Conf Dictating Machine Transcriber Required: No Accompanied by: Self / Same As Patient Allergies sulfamethoxazole (From BACTRIM) Allergy (Severe, Verified 07/08/25 13:25) blisters/photosensitivity trimethoprim (From BACTRIM) Allergy (Severe, Verified 07/08/25 13:25) blisters/photosensitivity codeine (CODEINE) Allergy (Intermediate, Verified 07/08/25 13:25) Nausea and Vomiting hydralazine Allergy (Intermediate, Verified 07/08/25 13:41) Blister amlodipine Allergy (Unknown, Verified 07/08/25 13:25) Swelling losartan Allergy (Unknown, Verified 07/08/25 13:25) Swelling nifedipine Allergy (Unknown, Verified 07/08/25 13:25) Swelling indomethacin (From Indocin) Allergy (Verified 07/08/25 13:25) Hives Medication List - Last Reconciled 07/08/25 by Dada Gonzalez MD calcium carbonate-vitamin D3 500 mg-10 mcg (400 unit) (Calcium 500 + D) 500 tabs PO DAILY MDD 500 famotidine 40 mg PO BEDTIME lactobacillus combination no.4 (Probiotic) 3,000 mmu cells PO DAILY metoprolol succinate ER 100 mg PO DAILY HPI Comments Details: 75-year-old woman with a history of hypertension and possible superimposed white coat hypertension has been referred for evaluation hypertension. She is currently on metoprolol 100 mg a day. About 5 days ago amlodipine 5 mg has been added. Prior to that she was on losartan but this was discontinued because of a rash. She was on lisinopril several years ago which caused palpitation therefore that was discontinued as well. She has been monitoring her blood pressure at home. Usually systolic blood pressure is in the 130s to 140s. In the doctor's office setting blood pressure is always in the 170/80s. 02/20/25 Underwent ABPM Results reveiwed with Sharon Has been on Amlodipine 5 mg QD for a month Initial SBP was 148 Repeat BP ,by me, was 160/90 04/10/25 75-year-old female presenting with issues related to blood pressure management. She experienced leg and foot edema while on a higher dose of amlodipine (10 mg) for her essential hypertension. To mitigate symptoms, she self-adjusted her dose to 5 mg after a specific low blood pressure reading and adverse reaction. With the adjusted dose to 5 mg, her blood pressure levels stabilized, generally remaining in the one-teens systolic range, and the severity of edema diminished significantly. The diastolic pressure readings have also improved, indicating effective blood pressure control. She has been consistently monitoring her blood pressure at home, confirming that the higher readings observed in the office are not real estate representative of her typical patterns. Overall, she has not reported any significant side effects such as dizziness or loss of balance, and her breathing remains unaffected. She will continue monitoring her blood pressure weekly at home to ensure maintenance of optimal levels. 05/27/25 Developed lip swelling and she thinks it is due to amlodipine Stopped amlodpine a week ago and lip swelling resolved. BP was well controlled while on Amlodpine 07/08/25 The patient is a 75-year-old female presenting with hypertension management. She has a history of sensitivity to antihypertensive medications, including lisinopril, metoprolol, and losartan. Lisinopril was used for 15 years without issues until discontinued due to sinus tachycardia. Sinus tachycardia and benign palpitations occurred seven years ago, leading to metoprolol initiation. Metoprolol initially managed arrhythmia, but blood pressure control has been inconsistent. The patient has drug hypersensitivity, including reactions to losartan and hydralazine. Oral ulcers and dry mouth were exacerbated by amlodipine and nifedipine. The patient is advised to monitor blood pressure at home and report any adverse reactions if lisinopril is reintroduced. Medical History: - Hypertension - Sinus tachycardia - Drug hypersensitivity Medications: - Metoprolol: for sinus tachycardia - Lisinopril: previously used for hypertension PFSH Medical History History of ductal carcinoma in situ (DCIS) of right breast White coat syndrome with hypertension Dyslipidemia Hx of radiation therapy GERD (gastroesophageal reflux disease) Hiatal hernia Osteoporosis Family history of cancer Breast cancer Surgical History Hx of hemorrhoidectomy H/O colonoscopy History of appendectomy History of lumpectomy Family History Sister Pancreatic cancer Maternal Aunt Breast cancer Pancreatic cancer Colon cancer Paternal Aunt Breast cancer Social History Household Members: Spouse Housing: House Are you a primary lawn caretaker to a significant other at home: No Do you presently have visiting nurse or other home services: No Alcohol intake: current Alcohol intake frequency: holidays/special occasions only Patient Tobacco Use Status: Never used Tobacco e-Cigarette/Vaping Use: Never Used service: No 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al status: retired 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 Cognitive needs: No Hearing needs: No Vision needs: Yes Physical Exam Vital Signs: Last Vital Signs Pulse 88 07/08/25 13:22 BP 178/94 H 07/08/25 13:22 Pulse Ox 100 07/08/25 13:22 Oxygen Delivery Method Room Air 07/08/25 13:22 BMI result Body Mass Index 20.3 Assessment & Plan Assessment & Plan (1) Hypertension: Code(s): I10 - Essential (primary) hypertension Category: Medical Qualifiers: Hypertension type: primary hypertension Qualified Code(s): I10 - Essential (primary) hypertension (2) White coat syndrome with hypertension: Code(s): I10 - Essential (primary) hypertension Category: Medical Plan 75-year-old woman with a history of longstanding hypertension. ABPM shows stage 1 HTN with Dipping She has superimposed white coat effect. Plan Stop AMLODIPINE 5 mg QD Try Procardia XL 30 mg daily Watch for lip swelling In the meantime encouraged her to stay on a low-sodium diet. Keep Metoprolol at current dose ( HR 50- 60s) Unable to Use Lisinopril or Losartan. 07/08/25 1. Hypertension - Restart lisinopril 10 mg, monitor blood pressure, report adverse reactions. 2. Sinus Tachycardia - Continue metoprolol for arrhythmia. 3. Drug Hypersensitivity - Avoid losartan and hydralazine. Medications: New lisinopril 10 mg PO DAILY 30 tabs 3RF Coding Level of Care Code Est Pt Level 4 (25435) Diagnoses Primary hypertension I10 Hypertension type: primary hypertension White coat syndrome with hypertension I10
--- OUTSIDE RECORDS SUMMARY | 2025-07-08 15:36 | XMS_ITS | Clinical Summary ---
Author Organization [facility] Address [address] [place] [id number] Phone Care Team Providers Care Typing Element Machine Operator Name Role Phone Glenys Looney MD Primary [...] (2 of 2 - PCV) 09/28/2018 09/28/2017 INFLUENZA VACCINE (#1) 2025 , 07/06/2022, 06/23/2021, Additional history exists COVID-19 VACCINE (2024- season) 2025 08/22/2023, 08/15/2022, 03/21/2022, Additional history exists Adult [...] file Insurance MEDICARE PART A & B [employer] MEDEX SUPPLEMENT MEDICARE PART A & B [employer] CROSS MEDEX SUPPLEMENT MEDICARE PART A & B [employer] MEDEX SUPPLEMENT MEDICARE PART A & B [employer] MEDEX SUPPLEMENT MEDICARE PART A & B [employer] MEDEX SUPPLEMENT MEDICARE PART A & B [employer] MEDEX SUPPLEMENT Care Teams Typing Element Machine Operator Relationship Specialty Start Date End Date Glenys Looney MD [address] [place] [address] PCP - General Internal Medicine 06/20/24 Additional Source Comments The information contained in this document represents components of the legal health record. It is not the complete legal health record.[facility]
--- OUTSIDE RECORDS SUMMARY | 2025-07-08 15:36 | XMS_ITS | Patient Health Record ---
Author Organization [facility] Address [address] [place] [address] Care Team Providers Care Website Programmer Name Role Phone Aure WONG, Glenys Primary Care Provider Bogdan Mcfadden Jr Allergies Allergen (clinical drug ingredient) Drug/Non Drug Allergy documented on EMR Reaction Allergy Type Onset Date Status indomethacin Indocin Unknown Drug Allergy Acti ve Codeine Phosphate Unknown Drug Allergy Active sulfamethoxazole / trimethoprim Bactrim Unknown Drug Allergy Active Results Component Value Reference Range Notes Pathology Reviewed date:09/12/2024 09:21:41 AM Interpretation: Performing Lab:[facility], [address] [place] [id number] Notes/Report: Reason For Referral No Information Medications [...] Problem Status W/U Status Risk Notes Problem 226279220 Colon cancer screening (Z12.11) Active confirmed Problem Gastro-esophage al reflux disease without esophagitis (626532156) Gastro-esophageal reflux disease without esophagitis (K21.9) Active confirmed Problem [id number] Abnormal finding s on diagnostic imaging of other parts of digestive tract (R93.3) Active confirmed Problem 668202035 Gastroesophageal reflux disease without esophagitis (K21.9) Active confirmed Vital Signs Temperature 97.1 degrees Fahrenheit 07/22/2024 Blood pressure diastolic 00 mm Hg 07/22/2024 Height 63.25 in 07/22/2024 Blood pressure systolic 000 mm Hg 07/22/2024 Weight 112 lb 6 oz lbs 07/22/2024 BMI 19.75 kg/m2 07/22/2024 Encounters Encounter Location Date Provider Diagnosis [facility] Outpatient [address] [place], [place] [id number] 09/03/2024 Bogdan Ruby Jr Colon cancer screening Z12.11 and Gastro-esophageal reflux disease without esophagitis K21.9 [facility] [address] [place] [phone] 07/22/2024 Bogdan Ruby Jr Abnormal findings on diagnostic imaging of other parts of digestive tract R93.3 ; Colon cancer screening Z12.11 and Gastroesophageal reflux disease without esophagitis K21.9 [facility] [address] [place] [phone] 09/12/2024 Bogdan Ruby Jr Assessments Encounter Date [...] MEDICARE OF [place] [address] [place] [address] [phone] [id number] CARLO LI Self - patient is the insured MEDEX ATTN CLAIMS [address] [place] [address] [phone] [id number] CARLO LI Self - patient is the insured Medical (General) History Medical History History ICD Code Colonoscopy 2013, negative, ten-year fol lowup 2015 DCIS right breast, lumpectomy hiatal hernia osteoporosis hypertension Gastroesophageal reflux disease Surgical History Surgery Date(Month/Year) appendectomy hemorrhoid banding lumpectomy, radiation
== END 2025-07-08 13:46 | disposition home or self-care (01) ==
LOC: HO.HKA 13:14
PROVIDERS: Visit Provider Internal Medicine Hypertension Specialist
DX: I10 Essential (primary) hypertension (principal)
CPT/HCPCS: 99214

== ENCOUNTER → 2025-07-08 13:13 | Outpatient (BNVA) | payer MEDICARE, SELFPAY | PROVIDERS: Visit Provider Internal Medicine Hypertension Specialist | DX: I10 Essential (primary) hypertension (principal); Z88.8 Allergy status to other drugs, medicaments and biological substances | CPT/HCPCS: 99212 ==

== ENCOUNTER 2025-09-16 09:12 | Outpatient (AMB) | payer MEDICARE, SELFPAY ==
--- NOTE | 2025-09-16 09:55 | A.OFFVIS_ITS ---
Intake Vital Signs 09/16/25 10:06 Height 5 ft 2 in Weight 113 lb BMI 20.7 BP 158/80 H Blood Pressure Location Lt brachial Position Sitting Respiration 16 Pulse 71 Pulse Source Pulse Oximeter Temp 97.5 F Temp Source Oral Pulse Oximetry (%) 100 Oxygen Delivery Method Room Air Intake Visit Reasons: KADEEMV G0439 Intake Note: Pt is here today for her SWV: last mammogram 06/24/25, bone density scan 06/18/24, colonoscopy 07/25/14 Marketing Development Specialist Required: No Allergies sulfamethoxazole (From BACTRIM) Allergy (Severe, Verified 09/17/25 17:24) blisters/photosensitivity trimethoprim (From BACTRIM) Allergy (Severe, Verified 09/17/25 17:24) blisters/photosensitivity codeine (CODEINE) Allergy (Intermediate, Verified 09/17/25 17:24) Nausea and Vomiting hydralazine Allergy (Intermediate, Verified 09/17/25 17:24) Blister amlodipine Allergy (Unknown, Verified 09/17/25 17:24) Swelling losartan Allergy (Unknown, Verified 09/17/25 17:24) Swelling nifedipine Allergy (Unknown, Verified 09/17/25 17:24) Swelling indomethacin (From Indocin) Allergy (Verified 09/17/25 17:24) Hives Medication List - Last Reconciled 09/17/25 by Glenys Looney MD calcium carbonate-vitamin D3 500 mg-10 mcg (400 unit) (Calcium 500 + D) 500 tabs PO DAILY MDD 500 famotidine 40 mg PO BEDTIME lactobacillus combination no.4 (Probiotic) 3,000 mmu cells PO DAILY lisinopril 10 mg PO DAILY metoprolol succinate ER 100 mg PO DAILY HPI SWV G0439 HPI Details SWV ? 73 year old lady with hypertension, osteoporosis in her left femoral neck, and ductal carcinoma in Situ of right breast diagnosed in 2022, presents today for her subsequent Annual Wellness Visit. She is up-to-date with her mammogram done 06/24/2025, had a bone density scan06/18/24, and her screening colonoscopy was done 09/03/[address] Ruby She is up-to-date with her screening for lipids, had 01/17/25, and had a normal fasting glucose screening on 01/14/25 She is up-to-date with her Tdap, pneumonia vaccination , RSV, and Shingrix vaccine but received only 1 dose, and has not yet received her yearly flu shot and COVID booster. ? Medical / Social History Reviewed? Past Medical History ?Yes . ? Yocha Dehe of Care / Care Team list updated ?Yes . ? Surgical/Hospitalization History ?Yes . ? Current Medications (including OTC and supplements) ?Yes . ? Family History ?Yes . ? Tobacco Control form ?Yes . ? AUDIT-C (Alcohol use) form ?Yes . ? Illicit drug use in Social History ?Yes . ? Current diagnosis of depression? ?No ? Appropriate PHQ2/PHQ9 completed ?Yes . ? Data entered by ?Sr. Manager Marketing and reviewed by provider ? Fall Risk ? Fall History? Have you had any falls with injury in the past year? ?No . ? Have you had two or more falls in the past year? ?No . ? Fall Risk Assessment: ?No falls in the past year . ? HRA filled out by the patient, reviewed by Provider and scanned. ? SWV ? Balance? Romberg ?negative ? Tandem walk ?Yes . ? Walk and Turn ?Yes . ? Rise from sit to stand ?Yes . ?Vision? Corrective lens ?none ? Vision screen ? Up-to-date, sees Dr. Benton ?Hearing? Whisper test ?pass . ?Written Plan?Completed. See Patient Documents.? Healthcare proxy done 12/27/2023 [facility] Medical History History of ductal carcinoma in situ (DCIS) of right breast White coat syndrome with hypertension Dyslipidemia Hx of radiation therapy GERD (gastroesophageal reflux disease) Hiatal hernia Osteoporosis Family history of cancer Breast cancer Surgical History Hx of hemorrhoidectomy H/O colonoscopy History of appendectomy History of lumpectomy Family History Sister Pancreatic cancer Maternal Aunt Breast cancer Pancreatic cancer Colon cancer Paternal Aunt Breast cancer Social History Household Members: Spouse Housing: House Are you a primary patient care specialist to a significant other at home: No Do you presently have visiting nurse or other home services: No Alcohol intake: current Alcohol intake frequency: holidays/special occasions only Patient Tobacco Use Status: Never used Tobacco e-Cigarette/Vaping Use: Never Used service: No 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al status: retired 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 Cognitive needs: No Hearing needs: No Vision needs: Yes Questionnaire Medicare Wellness Checkup [age] What gender do you identify with?: female During the past 4 weeks, how much have you been bothered by emotional problems such as feeling anxious, depressed, irritable, sad or downhearted, and blue?: slightly During the past 4 weeks, has your physical & emotional health limited your social activities with family, friends, neighbors, or groups?: not at all During the past 4 weeks, how much bodily pain have you generally had?: no pain During the past 4 weeks, was someone available to help you if you needed & wanted help?: yes, as much as I wanted During the past 4 weeks, what was the hardest physical activity you could do for at least 2 minutes?: moderate Can you get to places out of walking distance without help? (For eg., can you travel alone on buses, taxis or drive your car?): Yes Can you go shopping for groceries or clothes without someone's help?: Yes Can you prepare your own meals?: Yes Can you do your housework without help?: Yes Because of any health problems, do you need the help of another person with your personal care needs such as eating, bathing, dressing or getting around the house?: No Can you handle your own money without help?: Yes During the past 4 weeks, how would you rate your health in general?: very good During the past 4 weeks how have things been going for you?: pretty well Are you having difficulties driving your car?: no Do you always fasten your seat belt when you are in a car?: yes, usually During past 4 weeks, have you been bothered by the following: never: Falling or dizzy when standing up, Sexual problems?, Trouble eating well?, Teeth or denture problems?, Problems using the telephone? and Tiredness or fatigue? Have you fallen 2 or more times in the past year?: No Are you afraid of falling?: No Are you a smoker?: no During the past 4 weeks, how many drinks of wine, beer, or other alcoholic beverages did you have?: 1 drink or less per week Do you exercise for about 20 minutes 3 or more times a week?: yes, all the time Have you been given information to help with the following?: no: Hazards in your house that might hurt you? and no: Keeping track of your medications? How often do you have trouble taking medicines the way you have been told to take them?: I always take medicine as prescribed How confident are you that you can control & manage most of your health problems?: very confident What is your race?: White Mini Mental State Exam (MMSE) Orientation What is the (year) (season) (date) (day) (month)?: year (2024), season (Fall), date (09/16/25), day (Monday) and month (Nov) Where are we (state) (county) (town or city) (hospital) (floor)?: state ([facility]), county ([place]), town or city ([place]) and hospital/clinic [place] Score Score: 9 Activity of Daily Living Bathing - sponge bath, tub bath or shower: receives no assistance (gets in/out by self, if usual bathing means Dressing - getting clothes from closets & drawers, including inner/outer garments & fasteners.: gets clothes & gets completely dressed without help Toileting - going to the 'toilet room' for urine/bowel elimination & cleaning self/arranging clothes: goes to toilet room, cleans self, arranges clothes without help Transfer: moves in & out of bed and chair without help (may use support object) Continence: has occasional 'accidents' Feeding: feeds self without help Total Score: 0 Information obtained from: patient Using telephone: independent Traveling: independent Shopping: independent Preparing meals: independent Housework: independent Taking medicine: independent Managing money: independent PHQ-9 Over the last 2 weeks, how often have you been bothered by any of the following problems? 1. Little interest or pleasure in doing things: not at all 2. Feeling down, depressed, or hopeless: not at all 3. Trouble falling or staying asleep, or sleeping too much: not at all 4. Feeling tired or having little energy: not at all 5. Poor appetite or overeating: not at all 6. Feeling bad about yourself - or that you are a failure or have let yourself or your family down: not at all 7. Trouble concentrating on things, such as reading the newspaper or watching television: not at all 8. Moving or speaking so slowly that other people could have noticed. Or the opposite - being so fidgety or restless that you have been moving around a lot more than usual: not at all 9. Thoughts that you would be better off or of hurting yourself in some way: not at all Total score: 0 Depression Screening Interpretation: Negative Depression Screening Done: Yes [id number] - PHQ-9 Billing: Yes Source: Developed by Drs. Yuri Ruiz, Cindi Mitchell, Camacho [place] and colleagues, with an educational jass from [employer]. Physical Exam Vital Signs: Last Vital Signs Temp 97.5 F 09/16/25 10:06 Pulse 71 09/16/25 10:06 Resp 16 09/16/25 10:06 BP 158/80 H 09/16/25 10:06 Pulse Ox 100 09/16/25 10:06 Oxygen Delivery Method Room Air 09/16/25 10:06 BMI result Body Mass Index 20.7 Assessment & Plan Assessment & Plan (1) Encounter for subsequent annual wellness visit (AWV) in Medicare patient: Code(s): Z00.00 - Encounter for general adult medical examination without abnormal findings Plan: Medical wellness checklist reviewed, discussed with patient and updated., date with her healthcare proxy, and vaccines as well as with regular screen (2) White coat syndrome with hypertension: Code(s): I10 - Essential (primary) hypertension Plan: Currently followed by Nephrology, currently on lisinopril and metoprolol succinate. She has been consistently monitoring her blood pressure at home, confirming that the higher readings observed in the office are not communications representative of her typical patterns. (3) Dyslipidemia: Code(s): E78.5 - Hyperlipidemia, unspecified Plan: Continued adherence to healthy eating habits and regular exercise (4) Osteoporosis: Code(s): M81.0 - Age-related osteoporosis without current pathological fracture Qualifiers: Osteoporosis type: age-related Presence of current pathological fracture: without current pathological fracture Qualified Code(s): M81.0 - Age- related osteoporosis without current pathological fracture Plan: Osteoporosis in left femoral neck, with improvement noted as compared to her last bone density scan in 2021. Previously was on tamoxifen and then later on was on alendronate for 5 years. Will continue on calcium and vitamin-D 3 supplements, will recheck another bone density scan next year Quality Reporting (2019) Depression/Bipolar (159/160/161/177) PHQ-9: Total score: 0 Coding Level of Care Code Medicare Subsequent (G0439) Diagnoses Encounter for subsequent annual wellness visit (AWV) in Medicare patient Z00.00 White coat syndrome with hypertension I10 Dyslipidemia E78.5 Age-related osteoporosis without current pathological fracture M81.0 Osteoporosis type: age-related Presence of current pathological fracture: without current pathological fracture CPT Codes Advance Care Planning - Advance Care Planning discussion: On file, no changes ([id number]) Advance Care Planning - Time spent: 1-15 minutes, on File ([id number]) Additional Codes PHQ-9 - 95297 - PHQ-9 Billing: Yes ([id number]) Advance Care Planning Advance Care Planning discussion: On file, no changes Date of discussion: 09/16/25 Who was present: Patient Forms completed: Health Care Proxy Time spent: 1-15 minutes, on File Actual minutes spent: 1
[2025-09-16 10:06] VITALS: BP 158/80; PULSE 71; RESP 16; TEMP 36.4; O2SAT 100; BMI 20.7
== END 2025-09-16 11:00 | disposition home or self-care (01) ==
LOC: HO.HMCC 09:13
PROVIDERS: PCP Internal Medicine; Visit Provider Internal Medicine
DX: Z00.00 Encounter for general adult medical examination without abnormal findings (principal); I10 Essential (primary) hypertension; E78.5 Hyperlipidemia, unspecified; M81.0 Age-related osteoporosis without current pathological fracture

== ENCOUNTER → 2025-09-16 09:12 | Outpatient (BNVA) | payer MEDICARE, SELFPAY | PROVIDERS: PCP Internal Medicine; Visit Provider Internal Medicine | DX: Z00.00 Encounter for general adult medical examination without abnormal findings (principal); I10 Essential (primary) hypertension; M81.0 Age-related osteoporosis without current pathological fracture; E78.5 Hyperlipidemia, unspecified | CPT/HCPCS: 96127 ==

== ENCOUNTER 2025-10-07 10:02 | Outpatient (AMB) | payer MEDICARE, SELFPAY ==
[2025-10-07 10:07] VITALS: BP 190/92; PULSE 79; O2SAT 100; BMI 20.5
--- NOTE | 2025-10-07 10:07 | HO.NEPHOV_ITS ---
Vital Signs 10/07/25 10:07 Height 5 ft 2 in Weight 112 lb BMI 20.5 BP 190/92 H Blood Pressure Location Lt brachial Position Sitting Pulse 79 Pulse Source Pulse Oximeter Pulse Oximetry (%) 100 Oxygen Delivery Method Room Air Intake Visit Reasons: 6 month F/U Historic Preservationist Required: No Accompanied by: Self / Same As Patient Allergies sulfamethoxazole (From BACTRIM) Allergy (Severe, Verified 10/07/25 10:08) blisters/photosensitivity trimethoprim (From BACTRIM) Allergy (Severe, Verified 10/07/25 10:08) blisters/photosensitivity codeine (CODEINE) Allergy (Intermediate, Verified 10/07/25 10:08) Nausea and Vomiting hydralazine Allergy (Intermediate, Verified 10/07/25 10:08) Blister amlodipine Allergy (Unknown, Verified 10/07/25 10:08) Swelling losartan Allergy (Unknown, Verified 10/07/25 10:08) Swelling nifedipine Allergy (Unknown, Verified 10/07/25 10:08) Swelling indomethacin (From Indocin) Allergy (Verified 10/07/25 10:08) Hives Medication List - Last Reconciled 10/07/25 by Dada Gonzalez MD calcium carbonate-vitamin D3 500 mg-10 mcg (400 unit) (Calcium 500 + D) 500 tabs PO DAILY MDD 500 famotidine 40 mg PO BEDTIME lactobacillus combination no.4 (Probiotic) 3,000 mmu cells PO DAILY lisinopril 10 mg PO DAILY metoprolol succinate ER 100 mg PO DAILY HPI Comments Details: 75-year-old woman with a history of hypertension and possible superimposed white coat hypertension has been referred for evaluation hypertension. She is currently on metoprolol 100 mg a day. About 5 days ago amlodipine 5 mg has been added. Prior to that she was on losartan but this was discontinued because of a rash. She was on lisinopril several years ago which caused palpitation therefore that was discontinued as well. She has been monitoring her blood pressure at home. Usually systolic blood pressure is in the 130s to 140s. In the doctor's office setting blood pressure is always in the 170/80s. 02/20/25 Underwent ABPM Results reveiwed with Sharon Has been on Amlodipine 5 mg QD for a month Initial SBP was 148 Repeat BP ,by me, was 160/90 04/10/25 75-year-old female presenting with issues related to blood pressure management. She experienced leg and foot edema while on a higher dose of amlodipine (10 mg) for her essential hypertension. To mitigate symptoms, she self-adjusted her dose to 5 mg after a specific low blood pressure reading and adverse reaction. With the adjusted dose to 5 mg, her blood pressure levels stabilized, generally remaining in the one-teens systolic range, and the severity of edema diminished significantly. The diastolic pressure readings have also improved, indicating effective blood pressure control. She has been consistently monitoring her blood pressure at home, confirming that the higher readings observed in the office are not new accounts banking representative of her typical patterns. Overall, she has not reported any significant side effects such as dizziness or loss of balance, and her breathing remains unaffected. She will continue monitoring her blood pressure weekly at home to ensure maintenance of optimal levels. 05/27/25 Developed lip swelling and she thinks it is due to amlodipine Stopped amlodpine a week ago and lip swelling resolved. BP was well controlled while on Amlodpine 07/08/25 The patient is a 75-year-old female presenting with hypertension management. She has a history of sensitivity to antihypertensive medications, including lisinopril, metoprolol, and losartan. Lisinopril was used for 15 years without issues until discontinued due to sinus tachycardia. Sinus tachycardia and benign palpitations occurred seven years ago, leading to metoprolol initiation. Metoprolol initially managed arrhythmia, but blood pressure control has been inconsistent. The patient has drug hypersensitivity, including reactions to losartan and hydralazine. Oral ulcers and dry mouth were exacerbated by amlodipine and nifedipine. The patient is advised to monitor blood pressure at home and report any adverse reactions if lisinopril is reintroduced. Medical History: - Hypertension - Sinus tachycardia - Drug hypersensitivity Medications: - Metoprolol: for sinus tachycardia - Lisinopril: previously used for hypertension 10/07/25 Tolerating Lisinopril Home BP is in the 120s to 130s [facility] Medical History History of ductal carcinoma in situ (DCIS) of right breast White coat syndrome with hypertension Dyslipidemia Hx of radiation therapy GERD (gastroesophageal reflux disease) Hiatal hernia Osteoporosis Family history of cancer Breast cancer Surgical History Hx of hemorrhoidectomy H/O colonoscopy History of appendectomy History of lumpectomy Family History Sister Pancreatic cancer Maternal Aunt Breast cancer Pancreatic cancer Colon cancer Paternal Aunt Breast cancer Social History Household Members: Spouse Housing: House Are you a primary nurse wound care to a significant other at home: No Do you presently have visiting nurse or other home services: No Alcohol intake: current Alcohol intake frequency: holidays/special occasions only Patient Tobacco Use Status: Never used Tobacco e-Cigarette/Vaping Use: Never Used service: No 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al status: retired 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 Comfortable. HENT: Neck supple. Mucosa dry. Burning tongue and swollen papillae on the side. Pulmonary: Lungs aeration equal. No rales. Cardiology: Heart S1-S2 heard. No gallop. Abdomen: Soft. Non tender. Bowel sounds normal. Neurologic: No involuntary movements. No myoclonus. Extremities: No edema. No rash. Vital Signs: Last Vital Signs Pulse 79 10/07/25 10:07 BP 190/92 H 10/07/25 10:07 Pulse Ox 100 10/07/25 10:07 Oxygen Delivery Method Room Air 10/07/25 10:07 BMI result Body Mass Index 20.5 Assessment & Plan Assessment & Plan (1) Hypertension: Code(s): I10 - Essential (primary) hypertension Category: Medical Qualifiers: Hypertension type: primary hypertension Qualified Code(s): I10 - Essential (primary) hypertension (2) White coat syndrome with hypertension: Code(s): I10 - Essential (primary) hypertension Category: Medical Plan Plan Hypertension - The patient's blood pressure remains elevated, particularly in the office, She has superimposed White Coat Effect - As she is tolerating lisinopril well, the dose will be increased from 10 mg once daily to 10 mg twice daily. - She will take one 10 mg dose in the morning and the second 10 mg dose in the evening with her metoprolol. - A new prescription for lisinopril 10 mg for 180 tablets with three refills will supersede the previous prescription. - The patient was advised to check her blood pressure at random times of the day to ensure consistent control. - Follow-up is scheduled in six months, and she should make contact sooner if any issues arise. Orders: Orders Basic Metabolic Panel 6 Months I10 - Essential (primary) hypertension Medications: Changed From lisinopril 10 mg PO DAILY 90 tabs 1RF To lisinopril 10 mg PO BID 180 tabs 1RF Coding Level of Care Code Est Pt Level 4 (90367) Diagnoses Primary hypertension I10 Hypertension type: primary hypertension White coat syndrome with hypertension I10
== END 2025-10-07 10:23 | disposition home or self-care (01) ==
LOC: HO.HKA 10:03
PROVIDERS: PCP Internal Medicine; Visit Provider Internal Medicine Hypertension Specialist
DX: I10 Essential (primary) hypertension (principal)
CPT/HCPCS: 99214

== ENCOUNTER → 2025-10-07 10:02 | Outpatient (BNVA) | payer MEDICARE, SELFPAY | PROVIDERS: PCP Internal Medicine; Visit Provider Internal Medicine Hypertension Specialist | DX: I10 Essential (primary) hypertension (principal) | CPT/HCPCS: 99212 ==